=== PATIENT | female | born 1945 | race Caucasian/White ===

== ENCOUNTER 2022-01-19 15:32 | Outpatient (CLI) | payer OTHER, MEDICARE, SELFPAY ==
[2022-01-19 17:38] LABS: Albumin* 4.4 g/dL (3.3-5.0); Chloride* 98 mmol/L (96-114)
[2022-01-19 17:39] LABS: Potassium* 4.3 mmol/L (3.6-5.1); Sodium* 140 mmol/L (135-149)
[2022-01-19 17:41] LABS: Alkaline Phosphatase* 77 U/L (40-150); Aspartate Amino Transferase* 39 U/L (12-35); Bilirubin Total* 0.3 mg/dL (0.1-1.5); Blood Urea Nitrogen* 19 mg/dL (7-30); Carbon Dioxide* 34 mmol/L (20-32); Creatinine* 0.8 mg/dL (0.5-1.5); Estimated Glomerular Filt Rate 77 ml/min; Total Protein* 7.9 g/dL (6.0-8.3)
[2022-01-19 17:42] LABS: Alanine Aminotransferase* 20 U/L (4-35); Calcium* 9.2 mg/dL (8.4-10.6); Glucose* 110 mg/dL (60-115)
== END 2022-01-19 15:33 | disposition home or self-care (01) ==
PROVIDERS: PCP Family Medicine; Visit Provider Family Medicine
DX: R53.83 Other fatigue (principal); R26.89 Other abnormalities of gait and mobility; R42 Dizziness and giddiness
CPT/HCPCS: 80053; 84443

== ENCOUNTER 2022-01-28 13:59 | Outpatient (CLI) | payer OTHER, SELFPAY ==
--- OUTSIDE RECORDS SUMMARY | 2022-01-28 14:03 | XMS_ITS | Clinical Summary ---
:1945 Author Organization [facility] Address [address] [place] [address]. [place] [address] Care Team Providers Name Role Phone Zeynep Keller MD Primary Care Provider [phone] Allergies Active Allergy Reactions Severity Noted Date Comments Contrast Dye 03/05/2013 Morphine Hcl 03/05/2013 Medications Medication Sig Dispensed Refills Start Date End Date Status aspirin (ASPIR-81) 81 MG Take 81 mg by 0 Active EC tablet mouth daily Calcium Take by mouth 0 Active Carbonate-Vitamin D daily (CALCIUM 500 + D PO) coenzyme Q-10 200 MG Take by mouth 0 Active CAPS daily fish oil-omega-3 fatty Take 2 g by 0 Active acids (FISH OIL) 1000 MG mouth daily capsule atorvastatin (LIPITOR) Take 10 mg by 0 Active 10 MG tablet mouth daily lisinopril-hydrochloroth Take 1 tablet by 0 Active iazide mouth daily One (PRINZIDE,ZESTORETIC) one and 1/2 10-12.5 MG per tablet tablet daily Multiple Vitamin Take by mouth 0 Active (MULTIVITAMINS PO) daily Cholecalciferol (VITAMIN Take 1 capsule 0 Active D) 1000 UNITS capsule by mouth daily Active Problems Problem Noted Date 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 Social History Tobacco Use Types Packs/Day Years Used Date Never Smoker Alcohol Use Standard Drinks/Week Comments Yes 0 (1 standard drink = 0.6 oz pure alcoho l) Sex Assigned at Date Recorded Not on file Last Filed Vital Signs Vital Sign Reading Time Taken Comments Blood Pressure 142/72 03/05/2013 10:28 AM CDT Pulse 82 03/05/2013 10:28 AM CDT Temperature 37.2 ??C (98.9 ??F) 03/05/2013 10:28 AM CDT Respiratory Rate - - Oxygen Saturation 98% 03/05/2013 10:28 AM CDT Inhaled Oxygen Concentration - - Weight 93.3 kg (205 lb 9.6 oz) 03/05/2013 10:28 AM CDT Height 166 cm (5' 5.35) 03/05/2013 10:28 AM CDT Body Mass Index 33.84 03/05/2013 10:28 AM CDT Plan of Treatment Health Maintenance Due Date Last Done Comments ADVANCE CARE PLANNING 1945 ANNUAL REVIEW OF HM ORDERS 1947 CT COLONOGRAPHY 1945 DEXA 1945 FIT-DNA (Cologuard) 1945 FIT 1945 FLEX SIG 1945 MAMMO SCREENING 1947 COLONOSCOPY 1957 COLORECTAL CANCER SCREENING 1957 HEPATITIS C SCREENING 1965 LIPID 1992 FALL RISK ASSESSMENT 2012 MEDICARE ANNUAL WELLNESS 2012 VISIT DTAP/TDAP/TD IMMUNIZATION 04/07/2015 04/07/2005 (2 - Td or Tdap) COVID-19 Vaccine (3 - 01/18/2021 08/18/2020, 07/28/2020 Booster for Pfizer series) PHQ-2 (once per calendar 06/05/2021 year) INFLUENZA VACCINE (#1) 2022 03/11/2020, 03/13/2019, 03/16/2018, Additional history exists Pneumococcal Vaccine: 65+ Completed 01/01/2018, 04/10/2015 , Years 11/02/2012 ZOSTER IMMUNIZATION Completed 03/22/2018, 01/01/2018, 11/27/2008 HEPATITIS B IMMUNIZATION Aged Out No long er eligible based on patient 's age to complete this topic IPV IMMUNIZATION Aged Out No longer eligi ble based on patient 's age to complete this topic MENINGITIS IMMUNIZATION Aged Out No longe r eligible based on patient 's age to complete this topic Insurance Payer Benefit Plan / Subscriber ID Effective Phone Address T ype Group Dates MEDICARE MEDICARE [id number] 2012-Pr [phone] ATTN Medic are esent [id number] CLAIMS [address] [place] [address] [facility] [id number] 2020-Pre [phone] BOX HMO MEDICARE SUPP SR sent [id number] 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
--- OUTSIDE RECORDS SUMMARY | 2022-01-28 14:03 | XMS_ITS | Encounter Summary ---
:1945 Author Organization [facility] Address [facility] [place] [address] Care Team Providers Name Role Phone Robert Jones MD Primary Care Provider Unavailable Encounter Details Date Type Department Care Team Description 03/04/2013 Orders Only [facility] Interventional Sarah Howard, Splenic artery Radiology Consult Cl reinaldo RN aneurysm (H) (Primary [address] [facility] [address] [phone] Dx) KINGSLEY RAINES ([facility]) [address] [id number] Social History Tobacco Use Types Packs/Day Years Used Date Never Assessed Sex Assigned at Date Recorded Not on file documented as of this encounter Plan of Treatment Not on filedocumented as of this encounter Visit Diagnoses Diagnosis Splenic artery aneurysm (H) - Primary Aneurysm of splenic artery documented in this encounter Care Teams Home Service Demonstrator Relationship Specialty Start Date End Date Robert Jones MD PCP - General Internal Medicine 02/19/13 09/27/20 documented as of this encounter
--- OUTSIDE RECORDS SUMMARY | 2022-01-28 14:03 | XMS_ITS | Encounter Summary ---
:1945 Author Organization [facility] Address Pending sale to [facility] [place] [address] Care Team Providers Name Role Phone Zeynep Keller MD Primary Care Provider [phone] Reason for Referral Diagnostic Imaging XR (Routine) - Closed Specialty Diagnoses / Procedures Referred By Contact Refer red To Contact Diagnoses Screening for heart disease Self, ReferredMD Procedures Radiologist Consult For Cardiology Referral ID Status Reason Start Date Expiration Date Visits Requ ested Visits Authorized [id number] Closed 09/22/2020 09/22/2021 [address] Scan (Routine) - Denied Specialty Diagnoses / Procedures Referred By Contact Refer red To Contact Cardiology Diagnoses Screening for heart disease Self, MD Herminio Tar[facility]v [facility] Procedures CT Coronary Calcium Scan [address] [facility] [address] [place] [phone] Phone: Referral ID Status Reason Start Date Expiration Date Visits Requ ested Visits Authorized [id number] Denied 09/22/2020 09/22/2021 1 0 Reason for Visit Diagnostic Imaging CT Scan (Routine) - Denied Specialty Diagnoses / Procedures Referred By Contact Refer red To Contact Cardiology Diagnoses Screening for heart disease Ruben, ReferredMD [facility] Procedures CT Coronary Calcium Scan [address] [facility] [address] [place] [phone] Phone: Referral ID Status Reason Start Date Expiration Date Visits Requ ested Visits Authorized [id number] Denied 09/22/2020 09/22/2021 1 0 Encounter Details Date Type Department Care Team Description 09/28/2020 Hospital Encounter [facility] Zeynep Keller Screening for heart [facility] MD Ericka disease Heart [facility] [address] [facility] [address] [facility] [address] [place], [place] [phone] Social History Tobacco Use Types Packs/Day Years Used Date Never Smoker Alcohol Use Standard Drinks/Week Comments Yes 0 (1 standard drink = 0.6 oz pure alcoho l) Sex Assigned at Date Recorded Not on file COVID-19 Exposure Response Date Recorded In the last month, have you been in contact with No / Unsure 09/28/2020 2:39 PM CDT someone who was confirmed or suspected to have Coronavirus / COVID-19? documented as of this encounter Medications at Time of Discharge Medication Sig Dispensed Refills Start Date End Date aspirin (ASPIR-81) 81 MG EC Take 81 mg by mouth 0 tablet daily atorvastatin (LIPITOR) 10 MG Take 10 mg by mouth 0 tablet daily Calcium Carbonate-Vitamin D Take by mouth daily 0 (CALCIUM 500 + D PO) Cholecalciferol (VITAMIN D) Take 1 capsule by 0 1000 UNITS capsule mouth daily coenzyme Q-10 200 MG CAPS Take by mouth daily 0 fish oil-omega-3 fatty acids Take 2 g by mouth 0 (FISH OIL) 1000 MG capsule daily lisinopril-hydrochlorothiazi Take 1 tablet by 0 de (PRINZIDE,ZESTORETIC) mouth daily One one 10-12.5 MG per tablet and 1/2 tablet daily Multiple Vitamin Take by mouth daily 0 (MULTIVITAMINS PO) documented as of this encounter Progress Notes Aracelis Orlando RN - 09/28/2020 11:59 PM CDT Pt contacted to discuss calcium score results and incidental findings. Pt expressed verbal understanding and will contact PCP for further questions and follow-up instructions. Copy of results will be mailed to pt and PCP. Elisa Chowdhury - 09/28/2020 11:59 PM [address]T Results of CT calcium score faxed to PCP (Zeynep Keller) and mailed to patient. documented in this encounter Plan of Treatment Not on filedocumented as of this encounter Procedures Procedure Name Priority Date/Time Associated Comments Diagnosis RADIOLOGIST CONSULT Routine 09/28/2020 3:11 PM Screening for h eart Results for this FOR CARDIOLOGY CDT disease procedure are in the results section. CT CALCIUM SCREENING Routine 09/28/2020 3:11 PM Screening for heart Results for this CDT disease procedure are i n the results section. documented in this encounter Results Radiologist Consult For Cardiology (09/28/2020 3:11 PM CDT) Anatomical Region Laterality Modality Computed Tomography Specimen (Source) Anatomical Location Collection Method / Collectio n Time Received Time / Laterality Volume Narrative 09/28/2020 4:24 PM CDT RADIOLOGIST CONSULT FOR CARDIOLOGY 09/28/2020 3:11 PM HISTORY: 75-year-old woman with screenin g for heart disease. Patient has history of hypercholesterolemia and hypertension. COMPARISON: None TECHNIQUE: Axial and coronal noncontrast CT images. FINDINGS: Please note this report will f ocus on soft tissue findings. Please see separate cardiology report fo r all cardiac and vascular findings. The visible solid organs are unremarkabl e. Scattered calcification in the mediastinum and right hilum, likely granulomatous. No abnormally enlarged soft tissue lymph nodes. Some a re rounded calcifications and only splenic hilum, this could be partia l visualization of a splenic artery aneurysm, though poorly assessed. Measurement in the visible portions is 1.8 x 1.2 cm. Tiny nodule no kinsey in the anterior right lung measuring 3 mm on image 4 series 5. At ost, follow-up CT exam could be performed in 12 months pending patien t's risk factors. No acute osseous abnormality. ROBERT RECIO MD Procedure Note Robert Recio MD - 09/28/2020 RADIOLOGIST CONSULT FOR CARDIOLOGY 2020 3:11 PM HISTORY: 75-year-old woman with screenin g for heart disease. Patient has history of hypercholesterolemia and hypertension. COMPARISON: None TECHNIQUE: Axial and coronal noncontrast CT images. FINDINGS: Please note this report will f ocus on soft tissue findings. Please see separate cardiology report fo r all cardiac and vascular findings. The visible solid organs are unremarkabl e. Scattered calcification in the mediastinum and right hilum, likely granulomatous. No abnormally enlarged soft tissue lymph nodes. Some a re rounded calcifications and only splenic hilum, this could be partia l visualization of a splenic artery aneurysm, though poorly assessed. Measurement in the visible portions is 1.8 x 1.2 cm. Tiny nodule no kinsey in the anterior right lung measuring 3 mm on image 4 series 5. At m ost, follow-up CT exam could be performed in 12 months pending patien t's risk factors. No acute osseous abnormality. ROBERT RECIO MD Referred Self IMG DIAGNOSTIC IMAGING ORDER DIPIKA CT Coronary Calcium Scan (09/28/2020 3:11 PM CDT) Anatomical Region Laterality Modality Chest, [facility] CT CTA Computed Tomography Specimen (Source) Anatomical Location Collection Method / Collectio n Time Received Time / Laterality Volume Narrative 09/28/2020 3:41 PM CDT Procedure: CT CALCIUM SCREENING Examination Date: 09/28/2020 3:11 PM Clinical Information: Screening for hear t disease Ordering Provider: Self PROCEDURE: High-resolution, ECG synchron ized multi-slice computed tomography was performed without inciden t. Coronary calcification was analyzed using [employer] calcium scoring software. Scan protocol was optimized to minimize radiation exposure . The total radiation exposure was calculated to be 288 DLP and 0.46 mS v. FINDINGS: Overall quality of the study: Mild motio n artifact. CORONARY ARTERY CALCIUM SCORES: Left main coronary artery: 0 Left anterior descending coronary artery : 55.6 Circumflex coronary artery: 205 Right coronary artery: 27.1 TOTAL CALCIUM SCORE: 288 Impressions Moderate coronary artery calcification The total Agatston calcium score is 288 placing the patient in the 78th percentile when compared to age and gender matched control group. Mild calcification of descending thoraci c aorta Please review Radiology report for incid ental noncardiac findings that will follow separately CALCIUM SCORE OF 100-399: If the patient has more than one cardiac risk factor (male age >45, female age >5 5,hypertension, smoking, high cholesterol, low HDL, family history of heart disease) then the risk of coronary heart disease, or myoc ardial infarction is 1.3% per year (Penny Ulloa et al. [facility], 2007; 4 9:378-402). The more calcium is detected, the higher is the likelihoo d for an obstructive coronary disease. However, there is no unique rel ationship between the amount of detected calcium and the extent of or localization of coronary artery disease. If there are any cardiac symptoms (for example chest pain/ pressure or shortness of breath) t hen immediate medical attention is necessary. GENERAL RECOMMENDATIONS: Adoption and ma intenance of a healthy lifestyle is recommended for all people. This should include regular, appropriate exercise and observance of a proper diet, to ensure balanced nutrition and weight control. T obacco use should be avoided. Cholesterol has been linked to coronary atherosclerosis, and we strongly encourage adhering to the recom mendations of the National Cholesterol Education Panel (NCEP). For primary prevention, these include a target goal for total choleste rol of less than 200 mg/dl, HDL cholesterol of greater than 40 mg/dl , triglycerides of less than 150 mg/dl, and LDL cholesterol of less t piper 100 mg/dl. However note that these are general recommendations o nly, and as with all such matters, the personal physician should b e consulted regarding recommendations and treatments appropria te for the individual. JEFFY LUNDY MD Procedure Note Jeffy Lundy MD - 09/28/2020For matting of this note might be different from the original. Procedure: CT CALCIUM SCREENING Examination Date: 09/28/2020 3:11 PM Clinical Information: Screening for hear t disease Ordering Provider: Self PROCEDURE: High-resolution, ECG synchron ized multi-slice computed tomography was performed without inciden t. Coronary calcification was analyzed using [employer] calcium scoring software. Scan protocol was optimized to minimize radiation exposure . The total radiation exposure was calculated to be 288 DLP and 0.46 mS v. FINDINGS: Overall quality of the study: Mild motio n artifact. CORONARY ARTERY CALCIUM SCORES: Left main coronary artery: 0 Left anterior descending coronary artery : 55.6 Circumflex coronary artery: 205 Right coronary artery: 27.1 TOTAL CALCIUM SCORE: 288 Impressions Moderate coronary artery calcification The total Agatston calcium score is 288 placing the patient in the 78th percentile when compared to age and gender matched control group. Mild calcification of descending thoraci c aorta Please review Radiology report for incid ental noncardiac findings that will follow separately CALCIUM SCORE OF 100-399: If the patient has more than one cardiac risk factor (male age >45, female age >5 5,hypertension, smoking, high cholesterol, low HDL, family history of heart disease) then the risk of coronary heart disease, or myoc ardial infarction is 1.3% per year (Penny Ulloa et al. [facility], 2007; 4 9:378-402). The more calcium is detected, the higher is the likelihoo d for an obstructive coronary disease. However, there is no unique rel ationship between the amount of detected calcium and the extent of or localization of coronary artery disease. If there are any cardiac symptoms (for example chest pain/ pressure or shortness of breath) t hen immediate medical attention is necessary. GENERAL RECOMMENDATIONS: Adoption and ma intenance of a healthy lifestyle is recommended for all people. This should include regular, appropriate exercise and observance of a proper diet, to ensure balanced nutrition and weight control. T obacco use should be avoided. Cholesterol has been linked to coronary atherosclerosis, and we strongly encourage adhering to the recom mendations of the National Cholesterol Education Panel (NCEP). For primary prevention, these include a target goal for total choleste rol of less than 200 mg/dl, HDL cholesterol of greater than 40 mg/dl , triglycerides of less than 150 mg/dl, and LDL cholesterol of less t piper 100 mg/dl. However note that these are general recommendations o nly, and as with all such matters, the personal physician should b e consulted regarding recommendations and treatments appropria te for the individual. JEFFY LUNDY MD Referred Self IMG CT ORDERABLES documented in this encounter Visit Diagnoses Diagnosis Screening for heart disease Screening for other and unspecified card iovascular conditions documented in this encounter Care Teams Concrete Tester Relationship Specialty Start Date End Date Zeynep Keller MD PCP - General Family Medicine 09/28/[address] [address] documented as of this encounter
--- OUTSIDE RECORDS SUMMARY | 2022-01-28 14:03 | XMS_ITS | Encounter Summary ---
:1945 Author Organization [facility] Address [address] [place] [id number] Care Team Providers Name Role Phone Unavailable Primary Care Provider Unavailable Reason for Referral Outpatient (Routine) - Pending Review Specialty Diagnoses / Procedures Referred By Contact Refer red To Contact Diagnoses Goiter Multinodular Nontoxic Wild Coelho M.D. Procedures FNA Neck [address] [place], [place] [phone] Referral ID Status Reason Start Date Expiration Date Visits V isits Requested Authorized [id number] Pending 11/10/2021 11/10/2022 1 1 Review Reason for Visit Reason Comments Thyroid Nodule END Thyroid USG Outpatient (Routine) - Closed Specialty Diagnoses / Procedures Referred By Contact Refer red To Contact Diagnoses Nodule Thyroid Angelita Gallego M.D. [facility] Procedures END Thyroid USG [address] [place] [address] Referral ID Status Reason Start Date Expiration Date Visits Requ ested Visits Authorized [id number] Closed 11/10/2021 11/10/2022 1 1 Encounter Details Date Type Department Care Team Description 11/10/2021 Procedure visit Division of Angelita Gallego M .D. [address] [place] [phone] Goiter Multinodular Nontoxic (Primary Dx ); Endocrinology in Wild Coelho M.D. [address] [place] [phone] Nodule Thyroid [place], [place] [address] [place] [phone] Social History Tobacco Use Types Packs/Day Years Used Date Smoking Tobacco: Never Smokeless Tobacco: Never Comments: Grew up with father who was ch ain smoker Alcohol Use Standard Drinks/Week Comments Never 0 (1 standard drink = 0.6 oz pure alcoho l) Alcohol Habits Answer Date Recorded How often do you have a drink containing alcohol? Never 09/21/2021 How many drinks containing alcohol do you have on a typical Not asked day when you are drinking? How often do you have six or more drinks on one occasion? No t asked Comment: Not asked Social Isolation Answer Date Recorded In a typical week, how many times do you More than three chante es a week 09/21/2021 talk on the phone with family, friends, or neighbors? How often do you get together with friends Once a week 09/21/2021 or relatives? How often do you attend latter day or More than 4 times per year 09/21/2021 faith services? Do you belong to any clubs or Not asked organizations such as latter day groups, unions, fraternal or athletic groups, or school groups? How often do you attend meetings of the More than 4 times pe r year 09/21/2021 clubs or organizations you belong to? Are you now , , , 09/21/2021 , never or living with a partner? Physical Activity Answer Date Recorded On average, how many days per week do you engage in moderate to 7 days 09/21/2021 strenuous exercise (like walking fast, running, jogging, dancing, swimming, biking, or other activities that cause a light or heavy sweat)? On average, how many minutes do you engage in exercise at th is 20 min 09/21/2021 level? Financial Resource Strain Answer Date Recorded How hard is it for you to pay for the very basics like Not h calos at all 09/21/2021 food, housing, medical care, and heating? Intimate Partner Violence Answer Date Recorded Within the last year, have you been afraid of your partner o r No 09/21/2021 ex-partner? Within the last year, have you been humiliated or emotionall y No 09/21/2021 abused in other ways by your partner or ex-partner? Within the last year, have you been kicked, hit, slapped, or No 09/21/2021 otherwise physically hurt by your partner or ex-partner? Within the last year, have you been raped or forced to have any No 09/21/2021 kind of sexual activity by your partner or ex-partner? Food Insecurity Answer Date Recorded Within the past 12 months, you worried that your food would Never true 09/21/2021 run out before you got money to buy more. Within the past 12 months, the food you bought just didn't N ever true 09/21/2021 last and you didn't have money to get more. Transportation Needs Answer Date Recorded In the past 12 months, has lack of transportation kept you f rom No 09/21/2021 medical appointments or from getting medications? In the past 12 months, has lack of transportation kept you f rom No 09/21/2021 meetings, work, or getting things needed for daily living? Housing Stability Answer Date Recorded In the last 12 months, was there a time when you were not ab le No 09/21/2021 to pay the mortgage or rent on time? In the last 12 months, how many places have you lived? 1 09/21/2021 In the last 12 months, was there a time when you did not hav e a No 09/21/[address] to sleep or slept in a residential (including now)? Education Answer Date Recorded What is the highest level of school Master's degree (e.g., M A, MS, 09/21/2021 you have completed or the highest Cecil, MEd, WHEELCHAIR VAN OPERATOR FIRST RESPONDER, ARMANDO) degree you have received? Sex Assigned at Date Recorded Female 09/21/2021 10:37 AM CDT documented as of this encounter Progress Notes Sacha Mercado R.N. - 11/10/2021 3:00 PM CDT REASON FOR VISIT Adalgisa Layton presents for a Fine Needle Aspiration of the Right thyroid nodule. HISTORY OF PRESENT ILLNESS Anticoagulation therapy: No. Recent INR: NA. Previous reaction to topical anesthetic: No History of easy bruising or bleeding: No ASSESSMENT Pain Score Pre-procedure: 0/10 Pain Score Post-procedure: 1/10 Please see Education Activity within medical record for completed patient education. documented in this encounter Procedure Notes Wild Coelho M.D. - 11/10/2021 3:00 PM CDTAssociated Order(s): FNA Neck Post-Procedure Diagnose(s): Goiter Multinodular Nontoxic FNA Neck Date/Time: 11/10/2021 3:00 PM Performed by: Wild Coelho M.D. Authorized by: Wild Coelho M.D. Care team members present 1. Tracy Pfeiffer 3. Sacha Mercado R.N. PROCEDURE DETAILS Number of FNA sites: 1 Ultrasound image guidance used to localize target, identify at risk structures, and dynamically usedto direct therapy to the target. Image(s) acquired and saved. FNA Site 1 Fine needle aspiration site: thyroid 27 gauge needle inserted this many times: 6 Sample obtained for molecular testing: no Sample obtained for thyroglobulin washout: no Cyst fluid: none CONSENT Consent obtained: written UNIVERSAL PROTOCOL All relevant documentation and testing were reviewed and available. All required blood products, implants, devices and or special equipment were made available as applicable. Pre-procedure verificationwas conducted and the correct site was marked if required. A fire risk assessment was done as applicable. The procedural time-out to verify correct patient, correct side/site, and procedure was conducted prior to performing the procedure and confirmed in a procedural pause. PRE-PROCEDURE DETAILS Indications: thyroid nodule Appropriate hand hygiene, gown, cap, mask, protective eyewear, sterile gloves, skin preparation, sterile drape, and strict aseptic technique were utilized as applicable for the procedure.: yes Site preparation: chlorhexidine SEDATION / ANESTHESIA Anesthesia method: topical application Topical application type: lidocaine/prilocaine (EMLA) POST-PROCEDURE DETAILS Procedure completed successfully: yes Complications: no apparent complications Comments The procedure was performed under ultrasound guidance and images identifying the location of the needle placement where obtained and stored. We started with the dominant inferior right lesion with an area of cystic degeneration centrally. It was soft in consistency and with good return. We then turnedour attention to the more posterior and lateral right thyroid nodule and found it of similar consiste ncy. We used suction on one pass. The return was good as well. Follow-up images were unremarkable. Pain 0/0. She was discharged in stable condition. ATTESTATION STATEMENT The teaching physician rule is not applicable. documented in this encounter Miscellaneous Notes Result Encounter Note - Angelita Gallego M.D. - 11/11/2021 12:03 PM CDT Called her mobile phone at 11:59am to let her both R thyroid nodules are Benign. TSH is normal at 2.9. She can have recheck in 3-[address] Gallego documented in this encounter Plan of Treatment Not on filedocumented as of this encounter Procedures Procedure Name Priority Date/Time Associated Diagnosis Comme nts [place] FNA BX W/US GDN Routine 11/10/2021 3:00 PM Goiter Multinodu lar Results for this 1ST LES CDT Nontoxic procedure are i n the results section. CYTOLOGY FINE Routine 11/10/2021 2:33 PM Nodule Thyroid Result s for this NEEDLE ASPIRATION CDT procedure are in (INCLUDES CORE the results BIOPSIES section. documented in this encounter Results [place] FNA BX W/US GDN 1ST LES (11/10/2021 3:00 PM CDT) Narrative [facility] - 11/10/2021 3:00 PM CDT Wild Coelho M.D. ? 11/11/2021 ??7:41 AM FNA Neck Date/Time: 11/10/2021 3:00 PM Performed by: Wild Coelho M.D. Authorized by: Wild Coelho M.D. Care team members present 1. Tracy Pfeiffer 3. Sacha Mercado R.N. PROCEDURE DETAILS Number of FNA sites: 1 Ultrasound image guidance used to locali ze target, identify at risk structures, and dynamically used to dire ct therapy to the target. Image(s) acquired and saved. FNA Site 1 Fine needle aspiration site: thyroid 27 gauge needle inserted this many times : 6 Sample obtained for molecular testing: n o ?? Sample obtained for thyroglobulin washou t: no ?? Cyst fluid: none CONSENT Consent obtained: written UNIVERSAL PROTOCOL All relevant documentation and testing w ere reviewed and available. All required blood products, implants, devic es and or special equipment were made available as applicable. Pre-proced ure verification was conducted and the correct site was marked if required. A fire risk assessment was done as applicable. The procedural time-out t o verify correct patient, correct side/site, and procedure was conducted p rior to performing the procedure and confirmed in a procedural pause. PRE-PROCEDURE DETAILS Indications: thyroid nodule Appropriate hand hygiene, gown, cap, mas k, protective eyewear, sterile gloves, skin preparation, sterile drape, and strict aseptic technique were utilized as applicable for the procedure .: yes ?? Site preparation: chlorhexidine SEDATION / ANESTHESIA Anesthesia method: topical application Topical application type: lidocaine/pril ocaine (EMLA) POST-PROCEDURE DETAILS ?? Procedure completed successfully: yes ?? Complications: no apparent complications Comments The procedure was performed under ultras ound guidance and images identifying the location of the needle p lacement where obtained and stored. ??We started with the dominant i nferior right lesion with an area of cystic degeneration centrally. ??It w as soft in consistency and with good return. ??We then turned our attent ion to the more posterior and lateral right thyroid nodule and found i t of similar consistency. ??We used suction on one pass. ??The return was go od as well. ??Follow-up images were unremarkable. ??Pain 0/0. ??She was disc harged in stable condition. ATTESTATION STATEMENT The teaching physician rule is not appli cable. Wild Coelho M.D. PROCEDURE/MINOR SURGICAL ORD ERABLES Performing Organization Address City/State/ZIP Code Phon e Number [facility] NA Cytology Fine Needle Aspiration (including core biopsies) (11/10/2021 2:33 PM CDT) Component Value Ref Test Analysis Performed At [facility] Method Time Signature 11/11/2021 DTL 11:33 AM CDT Report Andrés Tobar.B.S. 0 02/2022 DTL electronically 11:33 AM signed by CDT I verify that I have examined all relevant slides/materials for the specimen(s) and rendered or confirmed the diagnosis. Gross Description Received 16 11/11/2021 DTL alcohol-fixed 11:33 AM smears. CDT Source A. Thyroid, 11/11/2021 DTL Right, fine 11:33 AM needle CDT aspiration Interpretation A. Thyroid, Right, fine needle aspiration (smears): 11/11/2021 DTL Negative 11:33 AM for malignancy. Cytologic features consistent with benign CDT thyroid nodule. The smears have minimal cellularity. Specimen (Source) Anatomical Collection Method Collection Time Re ceived Time Location / / Volume Laterality Aspirate 11/10/2021 2:33 PM (Thyroid, Right) CDT Narrative This result has an attachment that is no t available. Angelita Gallego M.D. LAB SURG PATH ORDERABLES Performing Organization Address City/State/ZIP Code Phon e Number [facility] - [address] [place], [place] [address] [facility] [place] [address] Laboratories-[facility] [address] documented in this encounter Visit Diagnoses Diagnosis Goiter Multinodular Nontoxic - Primary Nodule Thyroid documented in this encounter Administered Medications Active Administered Medications - up to 3 most recent administrations Medication Order MAR Action Action Date Dose Rate Site lidocaine 4 % cream 1 Given 11/10/2021 2:07 PM CDT 1 application application (LMX) 1 application (5 g), topical, As needed, Apply for local anesthesia, Starting on Mon11/10/21 at 0924 documented in this encounter
--- OUTSIDE RECORDS SUMMARY | 2022-01-28 14:03 | XMS_ITS | Encounter Summary ---
:1945 Author Organization [place] Address [facility] [place] [address] Care Team Providers Name Role Phone Robert Jones MD Primary Care Provider Unavailable Encounter Details Date Type Department Care Team Description 03/20/2013 Telephone [facility] Cancer [facility] Sarah Howard, RN [facility] lding 1st Floor, [address] [phone] Social History Tobacco Use Types Packs/Day Years Used Date Never Smoker Alcohol Use Standard Drinks/Week Comments Yes 0 (1 standard drink = 0.6 oz pure alcoho l) Sex Assigned at Date Recorded Not on file documented as of this encounter Miscellaneous Notes Telephone Encounter - Sarah Winslow RN - 03/20/2013 10:56 AM CDT Calld and informed pt that Dr Torres did review the images that she had done at 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 She verbalized understanding and will call with any further questions documented in this encounter Plan of Treatment Not on filedocumented as of this encounter Visit Diagnoses Not on filedocumented in this encounter Care Teams Meat Press Operator Relationship Specialty Start Date End Date Robert Jones MD PCP - General Internal Medicine 02/19/13 09/27/20 documented as of this encounter
--- OUTSIDE RECORDS SUMMARY | 2022-01-28 14:03 | XMS_ITS | Encounter Summary ---
:1945 Author Organization [place] Address [facility] [place] [address] Care Team Providers Name Role Phone Robert Jones MD Primary Care Provider Unavailable Encounter Details Date Type Department Care Team Description 03/04/2013 Telephone [facility] Interventional Radiology Sarah Hunter, RN Consult Clinic [address] [phone] Social History Tobacco Use Types Packs/Day Years Used Date Never Assessed Sex Assigned at Date Recorded Not on file documented as of this encounter Miscellaneous Notes Telephone Encounter - Sarah Winslow RN - 03/04/2013 2:46 PM CDT Called pt and informed her that I do not have any med recs however just received her images today. Iinfrmed her that the all images are in 2010. Pt tells me that she then had some imaged done at [place],which are US abd. She's due for another CT at [place] in Apr. She has lots of questions for Dr. Torres. She is curious if she should seek out IR or resection. Along with seeking which therapy is best for her as internet research has indicated that this is bestwhen treated. She informs me that she was told it has hasn't changed from 1.2cm x 1.7cm in the past 2 years. When asked about symptoms, she tells me that recently, pulsing/throbbing sensation on her left side when lying down and also after eating. She was told that this aneurysm is close to the stomach. I informed her that I will inform Dr. Torres. Also, she will get the medical records to me and ifnot will handcarry them. documented in this encounter Plan of Treatment Not on filedocumented as of this encounter Visit Diagnoses Not on filedocumented in this encounter Care Teams Supervisor Meter Repair Shop Relationship Specialty Start Date End Date Robert Jones MD PCP - General Internal Medicine 02/19/13 09/27/20 documented as of this encounter
--- OUTSIDE RECORDS SUMMARY | 2022-01-28 14:03 | XMS_ITS | Encounter Summary ---
:1945 Author Organization [place] Address [address] [place] [address]. [place] [address] Care Team Providers Name Role Phone Robert Jones MD Primary Care Provider Unavailable Reason for Visit Reason Onset Date Comments Previsit 03/01/2013 called patient she c onfirmed her appt Encounter Details Date Type Department Care Team Description 03/01/2013 PRE VISIT Surgery Interventional Marisela Torres Previsit (called Radiology MD patient she confirmed [place] [address] [facility]t ) Building [facility] [address], Clinic [address] [place] [id number] [facility] [address] [place], [place] [phone] (Work) [phone] Social History Tobacco Use Types Packs/Day Years Used Date Never Assessed Sex Assigned at Date Recorded Not on file documented as of this encounter Miscellaneous Notes Telephone Encounter - Rhys Angenedra Watson MA - 03/01/2013 1:42 PM CDT Date of Call: March 01, 2013 Phone Numbers: Work Phone Not on file. Reached Patient: Yes Reason for Visit: Previsit Problem List: There are no active problems to display for this patient. Patient Care Team: Robert Jones as PCP - General (Internal Medicine) Referred by: self PCP: Robert Jones History Substance Use Topics ??? Smoking status: Not on file ??? Smokeless tobacco: Not on file ??? Alcohol Use: Not on file No current outpatient prescriptions on file. Allergies not on file Preferred Pharmacies: No Pharmacies Listed Patient instructions: Bring outside medical records, images, and/or studies Arrive 15 minutes early If health history form was received in the mail please bring to the appointment, or arrive early to complete health history form if patient did not receive. documented in this encounter Plan of Treatment Not on filedocumented as of this encounter Visit Diagnoses Not on filedocumented in this encounter Care Teams Head Refrigeration Engineer Relationship Specialty Start Date End Date Robert Jones MD PCP - General Internal Medicine 02/19/13 09/27/20 documented as of this encounter
--- OUTSIDE RECORDS SUMMARY | 2022-01-28 14:03 | XMS_ITS | Encounter Summary ---
:1945 Author Organization [place] Address [facility]0 [facility] [place] [address] Care Team Providers Name Role Phone Robert Jones MD Primary Care Provider Unavailable Encounter Details Date Type Department Care Team Description 03/06/2013 Telephone [facility] Interventional Radiology Sarah Hunter, RN Consult Clinic [address] [place], [place] [phone] Social History Tobacco Use Types Packs/Day Years Used Date Never Smoker Alcohol Use Standard Drinks/Week Comments Yes 0 (1 standard drink = 0.6 oz pure alcoho l) Sex Assigned at Date Recorded Not on file documented as of this encounter Miscellaneous Notes Telephone Encounter - Sarah Winslow, ANGELITA - 03/06/2013 9:52 AM CDT Called pt and informed her that I have faxed the CT order to [facility]. I've asked her to call there to get her imaging scheduled. She informed us that she has a tentative CT angio with [facility] that is coming up in Apr and is wondering if she should go to that. I informed her that this is up to her. However our recommendations are tohave a CT w/o contrast as it appears that this aneurysm has clacified and with her allergy to contrast, then this would be in our opinion the most appropriate way to image this. But if she still wants to see [facility], then that's o.k as we always encourage 2nd opinions. She informs me that Dr Torres has certainly taken the time to explain to her and has given her detail in regards to her situation. She is very pleased with him and would [facility] She will call to make this appt and then just give me a courtesy call to let me know when to f/u with the imaging. She will call with any other questions. documented in this encounter Plan of Treatment Not on filedocumented as of this encounter Visit Diagnoses Not on filedocumented in this encounter Care Teams Nitroglycerin Neutralizer Relationship Specialty Start Date End Date Robert Jones MD PCP - General Internal Medicine 02/19/13 09/27/20 documented as of this encounter
--- OUTSIDE RECORDS SUMMARY | 2022-01-28 14:03 | XMS_ITS | Encounter Summary ---
:1945 Author Organization [place] Address [facility] [place] [address] Care Team Providers Name Role Phone Robert Jnoes MD Primary Care Provider Unavailable Reason for Referral - Closed Specialty Diagnoses / Procedures Referred By Contact Refer red To Contact Diagnoses Splenic artery aneurysm (H) Marisela Torres MD Procedures CT Abdomen w/o contrast [address] [address] Referral ID Status Reason Start Date Expiration Date Visits Requ ested Visits Authorized [id number] Closed 03/05/2013 09/01/2013 1 1 Reason for Visit Reason Comments Consult Consultation Spenic Artery A neurysm Encounter Details Date Type Department Care Team Description 03/05/2013 Office Visit Surgery Interventional Marisela Torres, Splenic artery Radiology aneurysm (H) [place] [address] (Carmelina johnson Dx) Building [facility] [address] Floor, Clinic [address] [place] [address] [facility] [place] [address] [place], [place] [phone] (Work) [phone] Social History Tobacco Use Types Packs/Day Years Used Date Never Smoker Alcohol Use Standard Drinks/Week Comments Yes 0 (1 standard drink = 0.6 oz pure alcoho l) Sex Assigned at Date Recorded Not on file documented as of this encounter Last Filed Vital Signs Vital Sign Reading [...] Mass Index 33.84 03/05/2013 10:28 AM CDT documented in this encounter Progress Notes Kojo Hartman - 03/05/2013 10:13 AM CDT Primary Care Physician: Robert Gray in [facility]. Reason for Consultation: Opinion on pt's splenic artery aneurysm. Brief History: Ms. Layton is a 67 y/o female who is being seen in the interventional radiology clinic at the [facility] for evaluation of a splenic artery aneurysm. Per her report, she was aware of this finding dating back to 2009. She has had prior imaging at [facility] and [place], [place]. 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 She has been seen at 2 other locations ([facility] in [facility]) and [facility], and has essentially been told that no follow up is needed. Patient states that she feels a throbbing every day, and it is waking her at night. Her family history is negative for aneurysm rupture. PMH: HTN, hyperlipidemia, osteoarthritis. PSH: meniscal surgery 2008; laparascopic hysterosalpingo-oophrectomy 1993; laparoscopic cholecystectomy 1995. Allergies: Morphine (dizziness) IV contrast (runny nose, congestion) Family History: Father 90, stroke. Mother 80, vascular dementia. Brother has DM, HTN. Social History: retired in 2005. Does not smoke. ROS: General: No acute distress. HEENT: neg CV: denies chest pain Resp: denies cough. Has mild SOB GI: denies abd pain : denies pain MSK: denies muscle ache Neuroendocrine: denies heat/cold intolerance Physical Exam: vital signs normal Gen: alert and oriented, no acute distress Lungs: CTA CV: RRR HEENT: normal Abd: Soft, nontender. Impression: Patient has a 1.7 cm sacular annuerysm distal splenic artery, last imaged 03/31/11. She has a reportof a CT April, of the aneurysm from [facility] but I do not have those images. The aneurysmhas been stable per prior reports dating back to 2009. The risk of rupture is exceedingly low. Techni soumya, the aneurysm could be treated with coils, however the risk of such a procedure (infarct of the spleen, non-target embolization, hemmorrhage) might out-way the benefit. The patient was very tearful at the end of the discussion, and the aneurysm clearly affects her daily life giving her anxiety. A follow-up CT of the aneurysm, without contrast because of the patients possible IV contrast allergy, could be done. We will be happy to follow her with yearly non-contrast CT's of the abdomen, and ifit grows (greater than 2.0 cm size) a discussion of coiling the artery could be had. The patient seemed relieved that we would see her again and do a follow-up study. I have seen the patient with Dr Hartman and agree with the note above. documented in this encounter Nursing Notes 03/05/2013 10:40 AM CDT >> KEON IBRAHIM Mar 05, 2013 10:35 AM Patient presents with: Consult - Consultation Spenic Artery Aneurysm >> KEON IBRAHIM Mar 05, 2013 10:35 AM Patient presents with: Consult - Consultation Spenic Artery Aneurysm 03/05/13 1028 BP: 142/72 Pulse: 82 Temp: 98.9 ??F (37.2 ??C) TempSrc: Oral Height: 1.66 m (5' 5.35) Weight: 93.26 kg (205 lb 9.6 oz) SpO2: 98% Body mass index is 33.84 kg/(m^2). WOUND EVALUATION: documented in this encounter Plan of Treatment Not on filedocumented as of this encounter Visit Diagnoses Diagnosis Splenic artery aneurysm (H) - Primary Aneurysm of splenic artery documented in this encounter Care Teams Spinning Bath Person Relationship Specialty Start Date End Date Robert Jones MD PCP - General Internal Medicine 02/19/13 09/27/20 documented as of this encounter
--- OUTSIDE RECORDS SUMMARY | 2022-01-28 14:03 | XMS_ITS | Clinical Summary ---
:1945 Author Organization [facility] Address [address] [place] [address] Care Team Providers Name Role Phone Unavailable Primary Care Provider Unavailable Source Comments Patient records contain information from all sites at [facility]. For routine questions regarding patient records, call [phone] during business hours, M-F 8:00 AM - 5:00 PM Central Time. Record requests for emergency care only can be directed to [phone] at any time.[facility] Allergies Active Allergy Reactions Severity Noted Date Comments Doxycycline Other (see comments) 02/17/2014 numbnes s Iodinated Contrast Shortness of breath 03/16/2012 Sn eezing and Media congestion in 2 00. Pt. States no h istory of allergy to t opical betadine. Morphine Other (see comments) 06/27/2003 Nickel Itching, Rash 05/16/2007 Medications Medication Sig Dispensed Refills Start Date End Date Status aspirin/calcium Take 1 tablet by 0 04/20/2012 Active carb/magnesium (ASPIRIN, mouth daily. BUFFERED ORAL) calcium Take by mouth. 0 Activ e carbonate/vitamin D3 (CALCIUM+D ORAL) wheat dextrin (BENEFIBER Take by mouth. 0 01/26/2009 Active CLEAR SF, DEXTRIN, ORAL) miscellaneous medical CPAP machine for 0 06/10/2020 Active supply misc home use at pressure 10.8cm/H2O, nasal mask x1/3month with nasal cushion x2/mo lisinopril-hydroCHLOROth Take 1 tablet by 0 12/01/19 21 Active iazide mouth daily. (PRINZIDE,ZESTORETIC) 20-25 mg per tablet multivitamin tablet Take by mouth. 0 04/11/2006 Active omega 2-rsh-fkj-fish oil Take 1 capsule 0 04/20/2012 Active 900 mg-360 mg- 455 by mouth daily. mg-1,000 mg capsule co-enzyme Q-10 (CO Q-10) Take 1 capsule 0 04/20/2012 Active 100 mg capsule by mouth daily. atorvastatin (LIPITOR) Take 10 mg by 0 12/28/2020 Active 10 mg tablet mouth at bedtime. amLODIPine (NORVASC) 5 Take 1 tablet by 0 07/10/2017 Active mg tablet mouth daily. ELDERBERRY FRUIT AND Takes liquid 0 11/02/2012 Active FLOWER ORAL form, 5 ml at bedtime as needed for expectorant. acetaminophen (TYLENOL) as needed for 0 Active 32 mg/mL suspension pain. UNABLE TO FIND Med Name: [place] 0 Active eye drops aspirin [address] tablet Take 81 mg by 0 11/02/2012 Active mouth. cholecalciferol (VITAMIN Take 1 capsule 0 Active D3) 25 mcg (1,000 Unit) by mouth. capsule docosahexaenoic acid-epa Take 2 g by 0 Active 120-180 mg capsule mouth as needed. ibuprofen (ADVIL,MOTRIN) Take 200 mg by 0 09/15/2016 Active 100 mg/5 mL suspension mouth as needed. nystatin (NYSTOP) Apply topically. 0 11/03/2015 Active 100,000 unit/gram powder vit Take 1 capsule 0 07/10/2017 Acti ve C,L-Xd-qcfgy-lutein-zeax by mouth 2 (two) an (AREDS 2) 250-90-40-1 times a day. mg per capsule Hospital, Clinic, or Other Ordered Dose Route Frequency Start Date End Date Status Facility Administered Medication lidocaine 4 % cream 1 1 application top As needed 11/10/2021 Active application (LMX) acetaminophen tablet 1,000 1000 mg oral Once 11/10/2021 Active mg (TYLENOL)Indications: Nodule Thyroid Active Problems Problem Noted Date Hypertension Essential Primary 02/02/2021 Hyperlipidemia On Treatment 02/02/2021 Aneurysm Splenic Artery 01/22/2018 Encounters Date Type Specialty Care Team Description 11/10/2021 Procedure visit Endocrinology Angelita Gallego inodular Nontoxic (Primary Dx); Zari Watson Nodule Thyroid Wild Coelho M.D. 11/10/2021 Hospital Encounter Laboratory Medicine Julián, Angelita bray Thyroid Zari Watson 11/10/2021 Comprehensive Visit Endocrinology Julián, Angelita Celaya Thyroid Zari Watson 11/09/2021 Clinical Admitting/Central Pre-visit Intake Communication Scheduling from Last 3 Months Family History Medical History Relation Name Comments Anesthesia problems Brother Colton [place] in tubation [place] Arthritis Brother Colton [facility] Colon polyps Brother Colton [facility] Diabetes Brother Colton [facility] Hyperlipidemia Brother Colton [facility] Hypertension Brother Colton [facility] Kidney disease Brother Colton [facility] Parkinson disease Brother Colton [facility] Skin cancer Brother Colton [facility] Sleep apnea Brother Colton [facility] Alcohol abuse Father Bipin SSiobhan Layton Stopped drink ing around age 60 Anxiety disorder Father Manuelting S. Kinjal Arthritis Father Manuelting S. Kinjal Hypertension Father Bipin S. Kinjal Parkinson disease Father Manuelting S. Kinjal Stroke Father Manuelting S. Kinjal Breast cancer Father's Sister Afshan Alcohol abuse Maternal Grandfather Claus Osoriocolm He bef ore I was Cristine Sr. born, but he was a bootlegger Coronary artery disease Maternal Grandfather Claus [place] d of heart attack Cristine Sr. in 1940's Arthritis Mother Sarah Layton Colon polyps Mother Sarah Colunga Colon section [place] removed due to cancerous polyp Coronary artery disease Mother Sarah Colunga of heart attack [place] in 2006 Hypertension Mother Sarah Colunga [place] Migraines Mother Sarah Colunga [place] Osteoporosis Mother Sarah Colunga [place] Transient ischemic attack Mother Sarah Colunga [place] Breast cancer Mother's Sister Lizbeth Lawson Alcohol abuse Paternal Grandfather Colton Layton Sr. befor e I was born Colon cancer Paternal Grandfather Colton Layton Sr. Bleeding Disorder Paternal Grandmother Elin Hanley from blood loss [place] in childbirth approx. 1920 Relation Name Status Comments Brother Colton Layton Father Bipin S. Kinjal Father's Sister Afshan Maternal Grandfather Claus Kimmanisha Colunga Sr. Maternal Grandmother Sarah Colunga Mother Sarah Colunga [place] Mother's Sister Lizbeth Renny Paternal Grandfather Colton Layton Sr. Paternal Grandmother Elin [facility] Social History Tobacco Use Types Packs/Day Years [...] or relatives? How often do you attend protestant or More than 4 times per year 09/21/2021 rastafarian services? Do you belong to any clubs or Not asked organizations such as protestant groups, unions, fraternal or athletic groups, or [...] place to sleep or slept in a snf (including now)? Education Answer Date Recorded What is the highest level of school Master's degree (e.g., M A, MS, 09/21/2021 you have completed or the highest Cecil, MEd, CASH MANAGEMENT SPECIALIST, ARMANDO) degree you have received? Sex Assigned at Date Recorded Female 09/21/2021 10:37 AM CDT Last Filed Vital Signs Vital Sign Reading Time Taken Comments Blood Pressure 157/86 11/10/2021 12:28 PM CDT Pulse 71 11/10/2021 12:28 PM CDT Temperature - - Respiratory Rate - - Oxygen Saturation - - Inhaled Oxygen Concentration - - Weight 88 kg (194 lb 0.1 oz) 11/10/2021 9:03 AM CDT Height 161.5 cm (5' 3.58) 11/10/2021 9:03 AM CDT Body Mass Index 33.74 11/10/2021 9:03 AM CDT Plan of Treatment Health Maintenance Due Date Last Done Comments Bone Density Scan (Osteoporosis 1945 Screen) CT Colonography 1945 Cologuard 1945 Colonoscopy 1945 Colorectal Cancer Surveillance 1945 Hepatitis C Screening 1945 Lipid (Cholesterol) Screening 1945 Mammogram 1945 Depression Screening (Annual 06/05/2021 PHQ-2) Fall Risk Screen (Annual) 06/05/2021 Creatinine Level 02/02/2022 02/02/2021 Potassium Level 02/02/2022 02/02/2021 Sodium Level 02/02/2022 02/02/2021 Office Visit for Blood Pressure 02/10/2022 11/10/2021 Check / Re-check Influenza Vaccine (#1) 2022 03/12/2021, 03/11/2020, 03/13/2019, Additional history exists Fasting Glucose for Diabetes 02/03/2024 02/02/2021 Screening DTaP,Tdap,and Td Vaccines (5 - Td 06/13/2029 06/13/2019, , or Tdap) 04/07/2005, Additional history exists Pneumococcal vaccine (65+ years) Completed 01/01/2018, 11/2014, 11/02/2012 Zoster Vaccines Completed 03/22/2018, 01/01/2018, 11/27/2008 COVID-19 Vaccine Completed 09/14/2021, 03/16/2021, 08/18/2020, Additional history exists Procedures Procedure Name Priority Date/Time Associated Diagnosis Comme nts ND FNA BX W/US GDN Routine 11/10/2021 3:00 PM Goiter Multinodu lar Results for this 1ST LES CDT Nontoxic procedure are i n the results section. CYTOLOGY FINE Routine 11/10/2021 2:33 PM Nodule Thyroid Result s for this NEEDLE ASPIRATION CDT procedure are in (INCLUDES CORE the results BIOPSIES section. THYROID-STIMULATING Routine 11/10/2021 9:59 AM Nodule Thyroid Results for this HORMONE-SENSITIVE CDT procedure are in (S-TSH) the results section. from Last 3 Months Results ND FNA BX W/US GDN 1ST LES (11/10/2021 3:00 PM CDT) Narrative MMODAL - 11/10/2021 3:00 PM CDT Wild Coelho M.D. ? 11/11/2021 ??7:41 AM FNA Neck Date/Time: 11/10/2021 3:00 PM Performed by: Wild Coelho M.D. Authorized by: Wild Coelho M.D. Care team members present 1. Kentrell Tracy Brown 3. Sacha Mercado R.N. PROCEDURE DETAILS Number [...] Component Value Ref Test Analysis Performed At Patholo gist Range Method Time Signature 11/11/2021 DTL 11:33 AM CDT Report Kehinde TobarB.S. 02/2022 DTL electronically 11:33 AM signed by [...] LAB SURG PATH ORDERABLES Performing Organization Address City/[facility]/ZIP Code Phon e Number [facility] - [address] [place], [place] [address] [facility] [place] [address] Laboratories-[facility] [address] S-TSH (Thyroid-Stimulating Hormone - Sensitive) (11/10/2021 9:59 AM CDT) P athologist Signature TSH, Sensitive 2.9 0.3 - 4.2 11/10/2021 DTL mIU/L 12:55 PM CDT Specimen Anatomical Collection Method Collection Time Receive d Time (Source) Location / / Volume Laterality Blood (Blood, 11/10/2021 9:59 AM 11/11/19 22 Venous) CDT 10:34 AM CDT Angelita Gallego M.D. LAB BLOOD ADD-ON Performing Organization Address City/State/ZIP Code Phon e Number [facility] - [address] [place], [place] [address] [facility] [place] [address] Laboratories-[facility] [address] from Last 3 Months Insurance Payer Benefit Plan / Subscriber ID Effective Phone Address T ype Group Dates [facility] [id number] 2021-Pres [phone] [address] PPO ent [address]45 [place] [address]
--- OUTSIDE RECORDS SUMMARY | 2022-01-28 14:03 | XMS_ITS | Encounter Summary ---
:1945 Author Organization [facility] Address [address] [place] [address] Care Team Providers Name Role Phone Unavailable Primary Care Provider Unavailable Encounter Details Date Type Department Care Team Description 11/10/2021 Hospital Encounter Department of JuliánAngelita walton, Nodule Thyroid Laboratory Medicine and M.D. Pathology, [address] [phone] [place] [address] [place], [place] (Work) [phone] Social History Tobacco Use Types Packs/Day Years [...] or relatives? How often do you attend orthodox or More than 4 times per year 09/21/2021 buddhism services? Do you belong to any clubs or Not asked organizations such as orthodox groups, unions, fraternal or athletic groups, or [...] place to sleep or slept in a half-way (including now)? Education Answer Date Recorded What is the highest level of school Master's degree (e.g., M A, MS, 09/21/2021 you have completed or the highest Cecil, MEd, CERTIFIED GREEN BUILDING ENGINEER, ARMANDO) degree you have received? Sex Assigned at Date Recorded Female 09/21/2021 10:37 AM CDT documented as of this encounter Medications at Time of Discharge Medication Sig Dispensed Refills Start Date End Date acetaminophen (TYLENOL) 32 as needed for pain. 0 mg/mL suspension amLODIPine (NORVASC) 5 mg Take 1 tablet by 0 10/2017 tablet mouth daily. aspirin [address] tablet Take 81 mg by mouth. 0 aspirin/calcium Take 1 tablet by 0 04/20/2012 carb/magnesium (ASPIRIN, mouth daily. BUFFERED ORAL) atorvastatin (LIPITOR) 10 Take 10 mg by mouth 0 0 12/28/2020 mg tablet at bedtime. calcium carbonate/vitamin Take by mouth. 0 D3 (CALCIUM+D ORAL) cholecalciferol (VITAMIN Take 1 capsule by 0 D3) 25 mcg (1,000 Unit) mouth. capsule co-enzyme Q-10 (CO Q-10) Take 1 capsule by 0 04/05 100 mg capsule mouth daily. docosahexaenoic acid-epa Take 2 g by mouth as 0 120-180 mg capsule needed. ELDERBERRY FRUIT AND FLOWER Takes liquid form, 5 0 11/02/2012 ORAL ml at bedtime as needed for expectorant. ibuprofen (ADVIL,MOTRIN) Take 200 mg by mouth 0 0 09/15/2016 100 mg/5 mL suspension as needed. lisinopril-hydroCHLOROthiaz Take 1 tablet by 0 charli (PRINZIDE,ZESTORETIC) mouth daily. 20-25 mg per tablet miscellaneous medical CPAP machine for 0 06/10/19 21 supply misc home use at pressure 10.8cm/H2O, nasal mask x1/3month with nasal cushion x2/mo multivitamin tablet Take by mouth. 0 04/11/2006 nystatin (NYSTOP) 100,000 Apply topically. 0 10/05 unit/gram powder omega 5-dat-pqz-fish oil Take 1 capsule by 0 04/05 900 mg-360 mg- 455 mg-1,000 mouth daily. mg capsule UNABLE TO FIND Med Name: [place] eye 0 drops vit Take 1 capsule by 0 07/10/2017 C,V-Cq-qxtzb-lutein-zeaxan mouth 2 (two) times (AREDS 2) 250-90-40-1 mg a day. per capsule wheat dextrin (BENEFIBER Take by mouth. 0 009 CLEAR SF, DEXTRIN, ORAL) documented as of this encounter Plan of Treatment Not on filedocumented as of this encounter Procedures Procedure Name Priority Date/Time Associated Diagnosis Comme nts THYROID-STIMULATING Routine 11/10/2021 9:59 AM Nodule Thyroid Results for this HORMONE-SENSITIVE CDT procedure are in (S-TSH) the results section. documented in this encounter Results S-TSH (Thyroid-Stimulating Hormone - Sensitive) (11/10/2021 9:59 [...] Organization Address City/State/ZIP Code Phon e Number [facility] - [address] [place], [place] [address] [facility] [place] [address] Laboratories-[facility] [address] documented in this encounter Visit Diagnoses Diagnosis Nodule Thyroid documented in this encounter
--- OUTSIDE RECORDS SUMMARY | 2022-01-28 14:03 | XMS_ITS | Encounter Summary ---
:1945 Author Organization [place] Address [facility] [place] [address] Care Team Providers Name Role Phone Robert Jones MD Primary Care Provider Unavailable Encounter Details Date Type Department Care Team Description 02/17/2014 Care Coordination P Interventional Sarah Howard security project manager Consult Cl inic [phone] [facility] (Work) [address] [phone] Social History Tobacco Use Types Packs/Day Years Used Date Never Smoker Alcohol Use Standard Drinks/Week Comments Yes 0 (1 standard drink = 0.6 oz pure alcoho l) Sex Assigned at Date Recorded Not on file documented as of this encounter Progress Notes Sarah Winslow RN - 02/17/2014 1:00 PM CDT Called pt to inform her that she is due for her 1 year f/u in March [facility] following her for. Informed her that we'd like to have a CT And f/u appt. She informs me that she was informed by Dr Torres that she can f/u via [facility] at the [facility] in which she is doing. She states that she had one a couple of months ago and it was fine. She would prefer this route to reduce the radiation exposure. She then indicated that she would also like to see Melissa for f/u care however. Informed her that will discuss with Dr. Torres and get back to her. She agrees to plan Sarah Winslow RN, BSN Interventional Radiology Nurse Coordinator documented in this encounter Plan of Treatment Not on filedocumented as of this encounter Visit Diagnoses Not on filedocumented in this encounter Care Teams Salt Refiner Relationship Specialty Start Date End Date Robert Jones MD PCP - General Internal Medicine 02/19/13 09/27/20 documented as of this encounter
--- OUTSIDE RECORDS SUMMARY | 2022-01-28 14:03 | XMS_ITS | Encounter Summary ---
:1945 Author Organization [place] Address [facility] [place] [address] Care Team Providers Name Role Phone Robert Jones MD Primary Care Provider Unavailable Encounter Details Date Type Department Care Team Description 03/07/2013 Results Only Surgery Clinic Marisela Torres MD [facility] [address] [facility] [address] [place] [address] 1st Floor, Clinic [address] [place] [address] [place] [phone] Social History Tobacco Use Types Packs/Day Years Used Date Never Smoker Alcohol Use Standard Drinks/Week Comments Yes 0 (1 standard drink = 0.6 oz pure alcoho l) Sex Assigned at Date Recorded Not on file documented as of this encounter Plan of Treatment Scheduled Orders Name Type Priority Associated Diagnoses Order S chedule CT Digital Archive-Non Imaging Order ed: 03/07/2013 [place] documented as of this encounter Visit Diagnoses Not on filedocumented in this encounter Care Teams Fertilizer Mixer Relationship Specialty Start Date End Date Robert Jones MD PCP - General Internal Medicine 02/19/13 09/27/20 documented as of this encounter
--- OUTSIDE RECORDS SUMMARY | 2022-01-28 14:03 | XMS_ITS | Encounter Summary ---
:1945 Author Organization [place] Address [address] [place] [address]. [place] [address] Care Team Providers Name Role Phone Zeynep Keller MD Primary Care Provider [phone] Encounter Details Date Type Department Care Team Description 09/28/2020 Travel Social History Tobacco Use Types Packs/Day Years [...] / COVID-19? documented as of this encounter Plan of Treatment Not on filedocumented as of this encounter Visit Diagnoses Not on filedocumented in this encounter Care Teams Loss Prevention Supervisor Relationship Specialty Start Date End Date Zeynep Keller MD PCP - General Family Medicine 09/28/[address] [address] documented as of this encounter
--- OUTSIDE RECORDS SUMMARY | 2022-01-28 14:03 | XMS_ITS | Encounter Summary ---
:1945 Author Organization [place] Address [facility]ly [facility] [place] [address] Care Team Providers Name Role Phone Rboert Jones MD Primary Care Provider Unavailable Encounter Details Date Type Department Care Team Description 03/07/2013 Results Only Surgery Clinic Marisela Torres MD [facility] [address] [facility] [address] [place] [address] 1st Floor, Clinic [address] [place] [address] [place] [phone] Social History Tobacco Use Types Packs/Day Years Used Date Never Smoker Alcohol Use Standard Drinks/Week Comments Yes 0 (1 standard drink = 0.6 oz pure alcoho l) Sex Assigned at Date Recorded Not on file documented as of this encounter Plan of Treatment Scheduled Orders Name Type Priority Associated Diagnoses Order S chedule CT Digital Archive-Non Imaging Order ed: 03/07/2013 [place] documented as of this encounter Visit Diagnoses Not on filedocumented in this encounter Care Teams Purchasing Manager/Sales Relationship Specialty Start Date End Date Robert Jones MD PCP - General Internal Medicine 02/19/13 09/27/20 documented as of this encounter
--- OUTSIDE RECORDS SUMMARY | 2022-01-28 14:03 | XMS_ITS | Encounter Summary ---
:1945 Author Organization [place] Address [address] [place] [address] Care Team Providers Name Role Phone Zeynep Keller MD Primary Care Provider [phone] Encounter Details Date Type Department Care Team Description 10/27/2020 Records - [facility] RAYGOZA CONVERSION Provider, Histor ical Social History Tobacco Use Types Packs/Day Years [...] Name Priority Date/Time Associated Diagnosis Comme nts XR FOOT RIGHT G/E 3 Routine 04/09/2000 12:00 AM R esults for this VIEWS MAIL INSERTER procedure are i n the results section. documented in this encounter Results XR Foot Right G/E 3 Views (04/09/2000 12:00 AM MAIL INSERTER) Anatomical Region Laterality Modality Foot, Ankle Right Other Specimen (Source) Anatomical Location Collection Method / Collectio n Time Received Time / Laterality Volume Narrative 04/09/2000 12:00 AM MAIL INSERTER See Historical Hospital Medical Record f or documentation Procedure Note Provider, Historical - 10/27/2020Formatt ing of this note might be different from the original. 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
--- OUTSIDE RECORDS SUMMARY | 2022-01-28 14:03 | XMS_ITS | Encounter Summary ---
:1945 Author Organization [place] Address [facility] [place] [address] Care Team Providers Name Role Phone Robert Jones MD Primary Care Provider Unavailable Encounter Details Date Type Department Care Team Description 03/07/2013 Results Only Surgery Clinic Marisela Torres MD [facility] [address] [facility] [address] [place] [address] 1st Floor, Clinic [address] [place] [address] [place] [phone] Social History Tobacco Use Types Packs/Day Years Used Date Never Smoker Alcohol Use Standard Drinks/Week Comments Yes 0 (1 standard drink = 0.6 oz pure alcoho l) Sex Assigned at Date Recorded Not on file documented as of this encounter Plan of Treatment Scheduled Orders Name Type Priority Associated Diagnoses Order S chedule CT Digital Archive-Non Imaging Order ed: 03/07/2013 [place] documented as of this encounter Visit Diagnoses Not on filedocumented in this encounter 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
--- OUTSIDE RECORDS SUMMARY | 2022-01-28 14:04 | XMS_ITS | Encounter Summary ---
:[address] [facility] Address [address] [place] [address] Care Team Providers Name Role Phone Unavailable Primary Care Provider Unavailable Encounter Details Date Type Department Care Team Description 02/19/2018 Hospital Encounter Department of Shahid Flanagan Splenic Radiology, Fady Watson M.D. Artery ([facility]) Building, in [address] [facility] [address] [place], [place] [phone] (Work) [phone] Social History Tobacco Use Types Packs/Day Years Used Date Smoking Tobacco: Never Assessed Alcohol Habits Answer Date Recorded How often [...] or relatives? How often do you attend mu-ism or More than 4 times per year 09/21/2021 religion services? Do you belong to any clubs or Not asked organizations such as mu-ism groups, unions, fraternal or athletic groups, or [...] or slept in a half-way (including now)? Sex Assigned at Date Recorded Female 09/21/2021 10:37 AM CDT documented as of this encounter Medications at Time of Discharge Medication Sig Dispensed Refills Start Date End Date amLODIPine (NORVASC) 5 mg Take 1 tablet by 0 10/2017 tablet mouth daily. aspirin [address] tablet Take 81 mg by mouth. 0 aspirin/calcium Take 1 tablet by 0 04/20/2012 carb/magnesium (ASPIRIN, mouth daily. BUFFERED ORAL) co-enzyme Q-10 (CO Q-10) Take 1 capsule by 0 04/05 100 mg capsule mouth daily. ELDERBERRY FRUIT AND Takes liquid form, 5 0 11/02 FLOWER ORAL ml at bedtime as needed for expectorant. ibuprofen (ADVIL,MOTRIN) Take 200 mg by mouth 0 0 09/15/2016 100 mg/5 mL suspension as needed. multivitamin tablet Take by mouth. 0 04/11/2006 nystatin (NYSTOP) 100,000 Apply topically. 0 10/05 unit/gram powder omega 0-zdo-gcb-fish oil Take 1 capsule by 0 04/05 900 mg-360 mg- 455 mouth daily. mg-1,000 mg capsule vit Take 1 capsule by 0 07/10/2017 C,L-Rz-zhhju-lutein-zeaxan mouth 2 (two) times a (AREDS 2) 250-90-40-1 mg day. per capsule wheat dextrin (BENEFIBER Take by mouth. 0 009 CLEAR SF, DEXTRIN, ORAL) documented as of this encounter Plan of Treatment Not on filedocumented as of this encounter Procedures Procedure Name Priority Date/Time Associated Comments Diagnosis US ABDOMEN PELVIS RAD - Routine 02/19/2018 11:47 Aneurysm Splenic R esults for this VESSELS DOPPLER (most inpatients AM CDT Artery (HCC) procedur e are in and all the results outpatients) section. documented in this encounter Results US Abdomen Pelvis Vessels Doppler (02/19/2018 11:47 AM CDT) Anatomical Region Laterality Modality Abdomen, Pelvis, Ultrasound RST LOS, Ultrasound ARZ LOS N/A Ultrasound Specimen (Source) Anatomical Collection Method Collection Time Re ceived Time Location / / Volume Laterality 02/19/2018 11:58 AM CDT Impressions 02/19/2018 12:01 PM CDT IMPRESSION: ??Stable, small splenic artery aneurysm. ?? Narrative 02/19/2018 12:01 PM CDT EXAM: US ABDOMEN PELVIS VESSELS DOPPLER Exam performed with color and spectral D oppler analysis. COMPARISON: Ultrasound of the splenic ar [facility] 12/17/2015. ?? FINDINGS: The spleen measures 12.6 cm. A periphera lly calcified splenic artery aneurysm is not significantly changed measuring 1.3 x 1.3 cm; previously 1.3 x 1.2 cm. The aneurysm remains patent. Procedure Note Дмитрий Polanco M.D. - 02/19/2018 EXAM: US ABDOMEN PELVIS VESSELS DOPPLER Exam performed with color and spectral D oppler analysis. COMPARISON: Ultrasound of the splenic ar [facility] 12/17/2015. FINDINGS: The spleen measures 12.6 cm. A periphera lly calcified splenic artery aneurysm is not significantly changed measuring 1.3 x 1.3 cm; previously 1.3 x 1.2 cm. The aneurysm remains patent. IMPRESSION: Stable, small splenic artery aneurysm. Shahid WOOD US PROCEDURES documented in this encounter Visit Diagnoses Diagnosis Aneurysm Splenic Artery (HCC) documented in this encounter
--- OUTSIDE RECORDS SUMMARY | 2022-01-28 14:04 | XMS_ITS | Encounter Summary ---
:1945 Author Organization [facility] Address [address] [place] [address] Care Team Providers Name Role Phone Unavailable Primary Care Provider Unavailable Encounter Details Date Type Department Care Team Description 01/28/2021 Hospital Encounter Department of Zeke Nobles er For Preprocedural Laboratory Examination (COVID-19); Laboratory Medicine Zari Campuzano, M.S . Negative COVID-19 Test (Contact With And (Suspected) Exposure To COVID-19) in [place], [facility][note 2] [address] [place], [place] [address] [place] [address] [place], [place] [phone] [address] (Work) [phone] Social History Tobacco Use Types Packs/Day Years [...] or relatives? How often do you attend alevism or More than 4 times per year 09/21/2021 christianity services? Do you belong to any clubs or Not asked organizations such as alevism groups, unions, fraternal or athletic groups, or [...] place to sleep or slept in a custodial (including now)? Sex Assigned at Date Recorded [...] 0 0 12/28/2020 mg tablet at bedtime. co-enzyme Q-10 (CO Q-10) Take 1 capsule by 0 04/05 100 mg capsule mouth daily. ELDERBERRY FRUIT AND Takes liquid form, 5 0 11/02 FLOWER ORAL ml at bedtime as needed for expectorant. ibuprofen (ADVIL,MOTRIN) Take 200 mg by mouth 0 0 09/15/2016 100 mg/5 mL suspension as needed. lisinopril-hydroCHLOROthia Take 1 tablet by 0 zide (PRINZIDE,ZESTORETIC) mouth daily. 20-25 mg per tablet miscellaneous medical CPAP machine for home 0 11/2020 supply misc use at pressure 10.8cm/H2O, nasal mask x1/3month with nasal cushion x2/mo multivitamin tablet Take by mouth. 0 04/11/2006 nystatin (NYSTOP) 100,000 Apply topically. 0 10/05 unit/gram powder omega 8-lkh-unx-fish oil Take 1 capsule by 0 04/05 900 mg-360 mg- 455 mouth daily. mg-1,000 mg capsule vit Take 1 capsule by 0 07/10/2017 C,N-Cv-ftikl-lutein-zeaxan mouth 2 (two) times a (AREDS 2) 250-90-40-1 mg day. per capsule wheat dextrin (BENEFIBER Take by mouth. 0 009 CLEAR SF, DEXTRIN, ORAL) documented as of this encounter Plan of Treatment Not on filedocumented as of this encounter Procedures Procedure Name Priority Date/Time Associated Diagnosis Comme nts SARS CORONAVIRUS-2 Routine 01/28/2021 9:56 AM Encounter For Re sults for this RNA, V CDT Preprocedural procedure are in Laboratory Examination the r esults (COVID-19) section. Negative COVID-19 Test (Contact With And (Suspected) Exposure To COVID-19) documented in this encounter Results SARS Coronavirus-2 RNA, V Asymptomatic (01/28/2021 9:56 AM CDT) [facility] Method Time Signature SARS-CoV-2 Swab, 01/28/2021 MKTO Specimen Nasopharynx 11:51 PM Source CDT SARS CoV-2 Undetected Undetected 01/28/2021 MKTO RNA, TMA 11:51 PM CDT Comment: SARS-CoV-2 RNA absent. This result does not rule out COVID-19 in the patient, as the sensitivity of the test depends o n the timing of the specimen collection and the quality of the specim en. Result should be correlated with patient's history and clinical presentat ion. ----ADDITIONAL INFORMATION---- This molecular amplification test was pe rformed using the Aptima SARS-CoV-2 assay ([employer] on the [employer] tem under emergency use authorization (EUA) by the U.S. Food and Drug Administ ration. Fact sheets for this EUA assay can be fo und at the following links: For Healthcare Providers: https://www.fd a.gov/media/258694/download For Patients: https://www.fda.gov/media/ 911628/download Specimen Anatomical Collection Method Collection Time Receive d Time (Source) Location / / Volume Laterality Varies 01/28/2021 9:56 AM 3:24 (Nasopharynx) CDT PM CDT Zeke oNbles M.D., M.S. LAB MICROBIOLOGY - GENERAL O RDERABLES Performing Organization Address City/State/ZIP Code Phon e Number [facility] [address] [place] [address] [place] [address] [address] documented in this encounter Visit Diagnoses Diagnosis Encounter For Preprocedural Laboratory E xamination (COVID-19) Negative COVID-19 Test (Contact With And (Suspected) Exposure To COVID-19) documented in this encounter Additional Health Concerns Infection Onset Date Last Indicated Resolved Time COVID19 Pending 01/28/2021 01/28/2021 01/28/2021 11:52 PM CDT documented as of this encounter
--- OUTSIDE RECORDS SUMMARY | 2022-01-28 14:04 | XMS_ITS | Encounter Summary ---
:1945 Author Organization [facility] Address [address] [place] [address] Care Team Providers Name Role Phone Unavailable Primary Care Provider Unavailable Encounter Details Date Type Department Care Team Description 02/02/2021 Hospital Encounter Department of Dm Moyer Splenic Laboratory Medicine Zari Guzman Artery (HCC) and Pathology, [address] [place] [address], in [place] [phone] [phone] [place] [address] (Work) [place], [place] [phone] (Fax) [phone] Social History Tobacco Use Types Packs/Day Years [...] or relatives? How often do you attend oriental orthodox or More than 4 times per year 09/21/2021 restorationism services? Do you belong to any clubs or Not asked organizations such as oriental orthodox groups, unions, fraternal or athletic groups, [...] place to sleep or slept in a fdc (including now)? Sex Assigned at Date Recorded [...] Apply topically. 0 10/05 unit/gram powder omega 0-bfw-onb-fish oil Take 1 capsule by 0 04/05 900 mg-360 mg- 455 mouth daily. mg-1,000 mg capsule vit Take 1 capsule by 0 07/10/2017 C,V-Dk-zyywa-lutein-zeaxan mouth 2 (two) times a (AREDS 2) 250-90-40-1 mg day. per capsule wheat dextrin (BENEFIBER Take by mouth. 0 009 CLEAR SF, DEXTRIN, ORAL) documented as of this encounter Plan of Treatment Not on filedocumented as of this encounter Procedures Procedure Name Priority Date/Time Associated Comments Diagnosis CBC WITH DIFFERENTIAL, B Routine 02/02/2021 7:49 Aneurysm Sple jayna Results for this AM CDT Artery (HCC) procedure are i n the results section. ASPARTATE Routine 02/02/2021 7:49 Aneurysm Splenic Results for this AMINOTRANSFERASE (AST), AM CDT Artery (HCC) proc edure are in S/P the results section. BASIC METABOLIC PANEL, Routine 02/02/2021 7:49 Aneurysm Spleni c Results for this S/P AM CDT Artery (HCC) procedure are i n the results section. documented in this encounter Results AST (Aspartate Aminotransferase) (02/02/2021 7:49 AM CDT) Patholo gist Method Time Signature Aspartate 22 8 - 43 02/02/2021 DTL Aminotransferase U/L 9:18 AM CDT (AST), S Specimen Anatomical Collection Method Collection Time Receive d Time (Source) Location / / Volume Laterality Blood (Blood, 02/02/2021 7:49 AM 02/03/20 21 8:53 Venous) CDT AM CDT Dm Moyer M.D. LAB BLOOD ADD-ON Performing Organization Address City/State/[facility] Code Phon e Number [facility] - [address] [place], [place] [phone] [facility] [address] Laboratories-[facility] 200 [facility] (ABNORMAL) Basic Metabolic Panel (02/02/2021 7:49 AM CDT) P athologist Signature Potassium, S 4.3 3.6 - 5.2 02/02/2021 DTL mmol/L 9:18 AM CDT Sodium, S 141 135 - 145 02/02/2021 DTL mmol/L 9:18 AM CDT Chloride, S 98 98 - 107 02/02/2021 DTL mmol/L 9:18 AM CDT Bicarbonate, S 33 (H) 22 - 29 02/02/2021 DTL mmol/L 9:18 AM CDT Anion Gap 10 7 - 15 02/02/2021 DTL 9:18 AM CDT BUN (Blood Urea 11 6 - 21 02/02/2021 DTL Nitrogen), S mg/dL 9:18 AM CDT Creatinine 0.85 0.59 - 02/02/2021 DTL 1.04 mg/dL 9:18 AM CDT eGFR-Non 68 >=60 02/02/2021 DTL Black/ mL/min/BSA 9:18 AM CDT Syrian Comment: ----ADDITIONAL INFORMATION---- Estimated GFR calculated using the 2009 CKD_EPI creatinine equation. eGFR-Black/ 79 >=60 mL/min/BSA 2020 9:18 AM CDT DTL Comment: ----ADDITIONAL INFORMATION---- Estimated GFR calculated using the 2009 CKD_EPI creatinine equation. Calcium, Total, S 10.2 8.8 - 10.2 mg/dL 02/02/2021 9:18 AM CDT DTL Glucose, S 89 70 - 140 mg/dL 02/02/2021 9:18 AM CDT D TL Specimen Anatomical Collection Method Collection Time Receive d Time (Source) Location / / Volume Laterality Blood (Blood, 02/02/2021 7:49 AM 02/03/20 8:53 Venous) CDT AM CDT Dm Moyer M.D. LAB BLOOD ADD-ON Performing Organization Address City/State/ZIP Code Phon e Number [facility] - [address] [place] [phone] [facility] [place] [address] Laboratories-[facility] 200 [facility] CBC with Differential, Blood (02/02/2021 7:49 AM CDT) P athologist Signature Hemoglobin 12.9 11.6 - 02/02/2021 DTL 15.0 g/dL 8:52 AM CDT Hematocrit 40.4 35.5 - 02/02/2021 DTL 44.9 % 8:52 AM CDT Erythrocytes 4.40 3.92 - 02/02/2021 DTL 5.13 8:52 AM CDT x10(12)/L MCV 91.8 78.2 - 02/02/2021 DTL 97.9 fL 8:52 AM CDT RBC Distrib Width 12.9 12.2 - 02/02/2021 DTL 16.1 % 8:52 AM CDT Platelet Count 174 157 - 371 02/02/2021 DTL x10(9)/L 8:52 AM CDT Leukocytes 6.8 3.4 - 9.6 02/02/2021 DTL x10(9)/L 8:52 AM CDT Neutrophils 4.16 1.56 - 02/02/2021 DTL 6.45 8:52 AM CDT x10(9)/L Lymphocytes 1.79 0.95 - 02/02/2021 DTL 3.07 8:52 AM CDT x10(9)/L Monocytes 0.74 0.26 - 02/02/2021 DTL 0.81 8:52 AM CDT x10(9)/L Eosinophils 0.05 0.03 - 02/02/2021 DTL 0.48 8:52 AM CDT x10(9)/L Basophils 0.05 0.01 - 02/02/2021 DTL 0.08 8:52 AM CDT x10(9)/L Specimen Anatomical Collection Method Collection Time Receive d Time (Source) Location / / Volume Laterality Blood (Blood, 02/02/2021 7:49 AM 02/03/20 21 8:39 Venous) CDT AM CDT Dm Moyer M.D. LAB BLOOD ADD-ON Performing Organization Address City/State/ZIP Code Phon e Number [facility] - [address] [place], [place] [phone] [facility] [address] Laboratories[facility] [address] documented in this encounter Visit Diagnoses Diagnosis Aneurysm Splenic Artery (HCC) documented in this encounter
--- OUTSIDE RECORDS SUMMARY | 2022-01-28 14:04 | XMS_ITS | Encounter Summary ---
:1945 Author Organization [facility] Address [address] [place] [address] Care Team Providers Name Role Phone Unavailable Primary Care Provider Unavailable Reason for Visit Reason Comments Basal Cell Carcinoma Outpatient (Routine) - Closed Specialty Diagnoses / Procedures Referred By Contact Refer red To Contact Dermatology Diagnoses Basal Cell Carcinoma Skin Other Parts Face Zeke Nobles M.D., [facility] Procedures ARACELI MOHS 1-4 sites M.S. [address] [place] [address] Referral ID Status Reason Start Date Expiration Date Visits Requ ested Visits Authorized [id number] Closed 12/17/2020 12/17/2021 1 1 Encounter Details Date Type Department Care Team Description 02/02/2021 Procedure visit Department of Jose A Lucero, Basal Ce ll Carcinoma Dermatology in M.D. Skin Other Parts Face [place], [place] [address] [facility] [address] [place] [phone] Social History Tobacco Use Types Packs/Day Years [...] or relatives? How often do you attend nondenominational or More than 4 times per year 09/21/2021 advent services? Do you belong to any clubs or Not asked organizations such as nondenominational groups, unions, fraternal or athletic groups, or [...] place to sleep or slept in a nursing home (including now)? Sex Assigned at Date Recorded Female 09/21/2021 10:37 AM CDT documented as of this encounter Last Filed Vital Signs Vital Sign Reading Time Taken Comments Blood Pressure 146/85 02/02/2021 9:00 AM CDT Pulse 77 02/02/2021 9:00 AM CDT Temperature - - Respiratory Rate - - Oxygen Saturation - - Inhaled Oxygen Concentration - - Weight - - Height - - Body Mass Index - - documented in this encounter Procedure Notes China Oconnor M.D. - 02/02/2021 10:30 AM CDTAssociated Order(s): ARACELI MOHS 1-4 SITES PREOP INDICATION: REMOVAL. Date of Surgery: 02/02/2021 Surgeon: Dr. Jose A Lucero Cook Larder: Dr. Harpreet Adma and Dr. China Oconnor Location: [facility]: Floor:16 Room:[facility] Visit Type: Outpatient PostOp Diagnosis: Nodular basal cell carcinoma Anatomic Location: Right preauricular cheek Preoperative size: 0.3 x 0.4 cm [facility] number: 12 Indication(s) for Mohs Micrographic Surgery: anatomic location where tissue conservation is critical Procedure(s): Mohs micrographic surgery with intermediate layered closure Prior to the procedure, final verification of the patient identity and correct marked surgical site was performed. Procedural pause conducted to verify: correct patient identity, procedure to be performed and as applicable, correct side and site, correct patient position, and availability of implants, special equipment or special requirements. INFORMED CONSENT Discussed the risks, benefits, alternatives, and the necessity of other members of the healthcare team participating in the procedure. All questions answered and consent given. PATIENT EDUCATION Ready to learn, no apparent learning barriers were identified; learning preferences include listening. Explained diagnosis and treatment plan; patient expressed understanding of the content. Preoperative medications: None The anesthesia used was 1% lidocaine and 0.25% bupivacaine with 1:200,000 epinephrine. The skin was prepped in a sterile fashion with Hibiclens. Histologic tumor-free margins were obtained in 1 stage (2 blocks, A1-2) by standard Mohs micrographic techniques with the Mohs surgeon performing both the surgery and pathology. The final defect depth was down to level of: subcutaneous fat. Postoperative size: 1.0 x 1 point known cm. Closure: Anesthesia with 1% lidocaine with 1:200,000 epinephrine and another sterile prep were performed. An intermediate layered closure was planned, and Burow's triangles were excised from opposite poles of the defect in the direction of the skin tension lines. The wound was undermined as needed, and hemostasis was obtained with electrocoagulation. The wound edges were closed with 5 0 Monocryl subcutaneous sutures and Dermabond. Postoperative length: 2.9 cm. Estimated blood loss: Minimal. Complications: None. Wound care: Routine. Postoperative medications: None documented in this encounter Consult Notes China Oconnor M.D. - 02/02/2021 10:30 AM CDT Referral Zeke Nobles M.D., M.S. Chief Complaint Treatment of nodular basal cell carcinoma on the right preauricular cheek HISTORY OF THE PRESENT ILLNESS Adalgisa Layton is a pleasant 75 y.o. 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 This lesion was biopsied at an outside facility. Pathology slide was reviewed by Dr. Yael silva at [facility]. She reports that she has a history of basal cell carcinoma on the left cheek 2 years ago that has already been treated. She does not have any history of melanoma. 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 The dermatologic surgery preoperative information sheet was reviewed. She has a history of splenic artery aneurysm that is currently being monitored by ultrasound. She has a vascular appointment later today. 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 The patient otherwise denies history of heart disease, pacemaker, defibrillator, lung disease, liver disease, stroke, infectious diseases (including hepatitis B, hepatitis C, or HIV), diabetes, organ transplant, bleeding or health problems. The patient denies artificial joints or other implants. PHYSICAL EXAM Vitals: BP 146/85, HR 77 General: Awake, alert, in no acute distress, and with appropriate affect. Skin: A limited skin examination was performed per patient preference. Involving the right preauricular cheek, there is a well-healed biopsy site. IMPRESSION AND PLAN #1 Nodular basal cell carcinoma on the right preauricular cheek The patient presents today for treatment of a nodular basal cell carcinoma the right preauricular cheek with Mohs surgery. We discussed risks and benefits of the procedure including scar, bleeding, infection, pain, recurrence, dysesthesia, and activity limitations. Patient wished to proceed. Her tumorwas cleared in 1 stage. A primary closure was performed with 5 0 Monocryl and Dermabond. The patienttolerated the procedure well. Please see the operative note for further detail. PROCEDURAL PAUSE Procedural pause conducted to verify: correct patient identity, procedure to be performed, and as applicable, correct side and site, correct patient position, and availability of implants, special equipment, or special requirements. PATIENT EDUCATION Ready to learn. No apparent learning barriers were identified. Learning preferences include listening. Explained diagnosis and treatment plan; patient/guardian of patient expressed understanding of thecontent. INFORMED CONSENT Discussed the risks, benefits, alternatives, and the necessity of other members of the healthcare team participating in the procedure. All questions answered and consent given. China Oconnor MD Dermatology Resident, PGY-3 Pager: [phone] Associated attestation - Jose A Lucero M.D. - 02/02/2021 4:44 PM CDT I was present during all critical and hermosillo portions of the procedure(s) and immediately available to furnish services the entire duration. See resident/fellow note for details. documented in this encounter Plan of Treatment Not on filedocumented as of this encounter Procedures Procedure Name Priority Date/Time Associated Diagnosis Comme nts ARACELI MOHS 1-4 SITES Routine 02/02/2021 10:30 AM Basal Cell Carc inoma Results for this CDT Skin Other Parts procedure a re in Face the results section. documented in this encounter Results ARACELI [facility] 1-4 sites (02/02/2021 10:30 AM CDT) Narrative Jose A Lucero M.D. - 02/02/2021 10:30 AM CDT China Oconnor M.D. ? 02/02/2021 ??3:34 PM PREOP INDICATION: REMOVAL. Date of Surgery: 02/02/2021 Surgeon: Dr. Jose A Lucero Cook Larder: Dr. Harpreet Adam and Dr. China Oconnor Location: [place] ?? dg:GO ?? Floor: 16 ?? Room:[facility] Visit Type: Outpatient PostOp Diagnosis: ??Nodular basal cell c arcinoma Anatomic Location: ??Right preauricular cheek Preoperative size: ??0.3 x 0.4 cm [facility] number: 12 Indication(s) for Mohs Micrographic Surg richard: anatomic location where tissue conservation is critical Procedure(s): Mohs micrographic surgery with intermediate layered closure Prior to the procedure, final verificati on of the patient identity and correct marked surgical site was perform ed. Procedural pause conducted to verify: co rrect patient identity, procedure to be performed and as applicable, corre ct side and site, correct patient position, and availability of implants, special equipment or special requirements. INFORMED CONSENT Discussed the risks, benefits, alternati ves, and the necessity of other members of the healthcare team participa ting in the procedure. ?? All questions answered and consent given. PATIENT EDUCATION Ready to learn, no apparent learning bar riers were identified; learning preferences include listening. ??Explain ed diagnosis and treatment plan; patient expressed understanding of the c ontent. Preoperative medications: ??None The anesthesia used was 1% lidocaine and 0.25% bupivacaine with 1:200,000 epinephrine. ??The skin was prepped in a sterile fashion with Hibiclens. Histologic tumor-free margins were obtai angeline in 1 stage (2 blocks, A1-2) by standard Mohs micrographic tech niques with the Mohs surgeon performing both the surgery and pathology. The final defect depth was down to level of: subcu taneous fat. Postoperative size: ??1.0 x 1 point know n cm. Closure: Anesthesia with 1% lidocaine with 1:200, 000 epinephrine and another sterile prep were performed. ??A n intermediate layered closure was planned, and Burow's triangl es were excised from opposite poles of the defect in the dire ction of the skin tension lines. ??The wound was undermined as nee ded, and hemostasis was obtained with electrocoagulation. ??The wound edges were closed with 5 0 Monocryl subcutaneous sutures a nd Dermabond. ?? Postoperative length: ??2.9 cm. ??Estima kinsey blood loss: Minimal. ?? Complications: None. ??Wound care: Maryann ramsay. Postoperative medications: ??None Zeke Nobles M.D., M.S. DERM PROCEDURE ORDERABLES documented in this encounter Visit Diagnoses Diagnosis Basal Cell Carcinoma Skin Other Parts Fa ce documented in this encounter Administered Medications Inactive Administered Medications - up to 3 most recent administrations Medication Order MAR Action Action Date Dose Rate Site pkpuvqcproi-nizdsyape-ZEVYICBkrkm Given 02/02/2021 2:05 PM CDT 2 mL 0.25%-1%-1:200,000 injection 2-25 mL 2-25 mL, injection, As needed, may repeat if the patient complains of pain/discomfort at the site up to 50 mL for entire procedure, Starting on Mon02/02/21 at 0952, For 1 day lidocaine-EPINEPHrine 1%-1:200,000 injection Given 02/02/2021 2: 05 PM CDT 6 mL 2-50 mL (XYLOCAINE W/EPI) 2-50 mL, injection, As needed, may repeat if the patient complains of pain/discomfort at the site up to 50 mL for entire procedure, Starting on Mon02/02/21 at 0952, For 1 day documented in this encounter
--- OUTSIDE RECORDS SUMMARY | 2022-01-28 14:04 | XMS_ITS | Encounter Summary ---
:1945 Author Organization [facility] Address [address] [place] [address] Care Team Providers Name Role Phone Unavailable Primary Care Provider Unavailable Reason for Visit Reason Comments Pre-visit Intake Encounter Details Date Type Department Care Team Description 11/09/2021 Clinical Communication Visit Review in Pr e-visit Intake [place], [place] [address] [place] [address] Social History Tobacco Use Types Packs/Day Years [...] or relatives? How often do you attend sikhism or More than 4 times per year 09/21/2021 tenriism services? Do you belong to any clubs or Not asked organizations such as sikhism groups, unions, fraternal or athletic groups, or [...] place to sleep or slept in a penitentiary (including now)? Education Answer Date Recorded What is the highest level of school Master's degree (e.g., Brock Dang MS, 09/21/2021 you have completed or the highest Cecil, MEd, HY[employer]OELECTRIC STATION OPERATOR, [employer]) degree you have received? Sex Assigned at Date Recorded Female 09/21/2021 10:37 AM CDT documented as of this encounter Plan of Treatment Not on filedocumented as of this encounter Visit Diagnoses Not on filedocumented in this encounter
--- OUTSIDE RECORDS SUMMARY | 2022-01-28 14:04 | XMS_ITS | Encounter Summary ---
:1945 Author Organization [facility] Address [address] [place] [address] Care Team Providers Name Role Phone Unavailable Primary Care Provider Unavailable Reason for Visit Outpatient (Routine) - Closed Specialty Diagnoses / Procedures Referred By Contact Refer red To Contact Diagnoses Aneurysm Splenic Artery (HCC) Dm Moyer M.D. [facility] Procedures US Abdomen Pelvis Vessels Limited Doppler US Mesenteric Artery [address] [place] [phone] Referral ID Status Reason Start Date Expiration Date Visits Requ ested Visits Authorized [id number] Closed 12/15/2020 12/15/2021 1 1 Encounter Details Date Type Department Care Team Description 02/02/2021 Hospital Encounter Department of Dm Moyer [facility] Splenic Radiology, Fady Guzman M.D. Artery (HCC) [facility], in [address] [place] [phone] [place] [address] [place], [place] (Work) [phone] Social History Tobacco Use Types Packs/Day Years [...] or relatives? How often do you attend jain or More than 4 times per year 09/21/2021 druze services? Do you belong to any clubs or Not asked organizations such as jain groups, unions, fraternal or athletic groups, or [...] place to sleep or slept in a [place] (including now)? Sex Assigned at Date Recorded [...] Take by mouth. 0 D3 (CALCIUM+D ORAL) co-enzyme Q-10 (CO Q-10) Take 1 [...] Apply topically. 0 10/05 unit/gram powder omega 5-eic-kzs-fish oil Take 1 capsule by 0 04/05 900 mg-360 mg- 455 mouth daily. mg-1,000 mg capsule UNABLE TO FIND Med Name: [place] eye 0 drops vit Take 1 capsule by 0 07/10/2017 C,V-Oo-igbtc-lutein-zeaxan mouth 2 (two) times a (AREDS 2) 250-90-40-1 mg day. per capsule wheat dextrin (BENEFIBER Take by mouth. 0 009 CLEAR SF, DEXTRIN, ORAL) documented as of this encounter Plan of Treatment Not on filedocumented as of this encounter Procedures Procedure Name Priority Date/Time Associated Comments Diagnosis US ABDOMEN PELVIS RAD - Routine 02/02/2021 8:45 Aneurysm Splenic Re sults for this VESSELS LIMITED (most inpatients AM CDT Artery (HCC) procedur e are in DOPPLER and all the results outpatients) section. documented in this encounter Results US Abdomen Pelvis Vessels Limited Doppler (02/02/2021 8:45 AM CDT) Anatomical Region Laterality Modality Abdomen, Pelvis, Ultrasound RST LOS, Ultrasound ARZ LOS, N/A Ultrasound Ultrasound FLA LOS Specimen (Source) Anatomical Collection Method Collection Time Re ceived Time Location / / Volume Laterality 02/02/2021 8:48 AM CDT Impressions 02/02/2021 8:49 AM CDT Stable 1.3 cm splenic artery aneurysm Narrative 02/02/2021 8:49 AM CDT EXAM: ??US ABDOMEN PELVIS VESSELS LIMITED DOPPLER Exam performed with color and spectral D oppler analysis. COMPARISON: ??Prior ultrasound 8 FINDINGS: ??Stable peripherally calcifie d 1.3 cm splenic artery aneurysm located near the splenic hilum. The aneurysm rem ains patent with flow present. Normal sized spleen with a length of 12. 1 cm Procedure Note Morgan Hernandez M.D. - 02/02/2021Formatti ng of this note might be different from the original. EXAM: US ABDOMEN PELVIS VESSELS LIMITED DOPPLER Exam performed with color and spectral D oppler analysis. COMPARISON: Prior ultrasound 02/19/2018 FINDINGS: Stable peripherally calcified 1.3 cm splenic artery aneurysm located near the splenic hilum. The aneurysm rem ains patent with flow present. Normal sized spleen with a length of 12. 1 cm IMPRESSION: Stable 1.3 cm splenic artery aneurysm Dm WOOD US PROCEDURES documented in this encounter Visit Diagnoses Diagnosis Aneurysm Splenic Artery (HCC) documented in this encounter
--- OUTSIDE RECORDS SUMMARY | 2022-01-28 14:04 | XMS_ITS | Encounter Summary ---
:1945 Author Organization [facility] Address [address] [place] [address] Care Team Providers Name Role Phone Unavailable Primary Care Provider Unavailable Encounter Details Date Type Department Care Team Description 02/02/2021 Ancillary Procedure Department of Dermatology Social History Tobacco Use Types Packs/Day Years [...] or relatives? How often do you attend restoration or More than 4 times per year 09/21/2021 latter-day services? Do you belong to any clubs or Not asked organizations such as restoration groups, unions, fraternal or athletic groups, or [...] or slept in a penitentiary (including now)? Sex Assigned at Date Recorded Female 09/21/2021 10:37 AM CDT documented as of this encounter Plan of Treatment Not on filedocumented as of this encounter Procedures Procedure Name Priority Date/Time Associated Comments Diagnosis DERMATOLOGY IMAGE Routine 02/02/2021 12:15 Result s for this EXAM AM CDT procedure are i n the results section. documented in this encounter Results cheek, right preauricular 12 Mohs micrographic surgery-Dermatology Image Exam (02/02/2021 12:15 AM CDT) Specimen (Source) Anatomical Location Collection Method / Collectio n Time Received Time / Laterality Volume Narrative [facility] - 02/02/2021 1:54 PM CDT This order has been created and auto-finalized to support the import of images acquired without order. The clini perri documentation to support these images can be found on the encounter jordi t produced images. Provider Not In System IMG NON RAD IMAGING PROCEDUR ES Performing Organization Address City/State/ZIP Code Phon e Number [facility] NA documented in this encounter Visit Diagnoses Not on filedocumented in this encounter
--- OUTSIDE RECORDS SUMMARY | 2022-01-28 14:04 | XMS_ITS | Encounter Summary ---
:1945 Author Organization [facility] Address [address] [place] [address] Care Team Providers Name Role Phone Unavailable Primary Care Provider Unavailable Encounter Details Date Type Department Care Team Description 12/17/2020 Lab RST RO Zeke Baum, Basal Cell Carcinoma Skin [address] [facility] MMonty, [place] [address] [place] [phone] (Wo rk) Social History Tobacco Use Types Packs/Day Years [...] or relatives? How often do you attend evangelical or More than 4 times per year 09/21/2021 hoahaoism services? Do you belong to any clubs or Not asked organizations such as evangelical groups, unions, fraternal or athletic groups, or [...] place to sleep or slept in a intermediate (including now)? Sex Assigned at Date Recorded Female 09/21/2021 10:37 AM CDT documented as of this encounter Plan of Treatment Not on filedocumented as of this encounter Procedures Procedure Name Priority Date/Time Associated Diagnosis Comme nts PATHOLOGY REVIEW OF Routine 12/30/2020 3:48 PM Basal Cell Carc inoma Results for this OUTSIDE MATERIAL CDT Skin Other Parts procedu re are in Face the results section. documented in this encounter Results Pathology Review of Outside Material (12/30/2020 3:48 PM CDT) Component Value Ref Test Analysis Performed At [facility] Range Method Time Signature 12/31/2020 PDR 1:37 PM CDT Participated in Martin Chan 12/31/2020 PDR the Jr, 1:37 PM CDT Interpretation D.O.-Pathology Fellow Report Pennie Conley M.D. 12/31/2020 PDR electronically 1:37 PM CDT signed by I verify that I have examined all relevant slides/materials for the specimen(s) and rendered or confirmed the diagnosis. Material Received A. [id number]: Skin, Right preauricular cheek 12/31/2020 PDRM ? 2 stained slides, 5 unstained slides 1:37 PM CDT Also rec'd 1 slide ([id number]) not for interpretation. Interpretation FINAL DIAGNOSIS 12/31/2020 PDR A. ??Skin, Right preauricular cheek, [id number], 1:37 PM CDT 11/04/2020: Nodular basal cell carcinoma, involving biopsy border Specimen Anatomical Collection Method Collection Time Receive d Time (Source) Location / / Volume Laterality Varies 12/30/2020 3:48 PM 3:48 CDT PM CDT Narrative This result has an attachment that is no t available. Zeke Nobles M.D., M.S. LAB SURG PATH ORDERABLES Performing Organization Address City/State/ZIP Code Phon e Number [facility] - [address] [place], [place] [address] [facility] [place] [address] [facility] [address] documented in this encounter Visit Diagnoses Diagnosis Basal Cell Carcinoma Skin Other Parts Fa ce documented in this encounter
--- OUTSIDE RECORDS SUMMARY | 2022-01-28 14:04 | XMS_ITS | Encounter Summary ---
:1945 Author Organization [facility] Address [address] [place] [address] Care Team Providers Name Role Phone Unavailable Primary Care Provider Unavailable Encounter Details Date Type Department Care Team Description 12/21/2020 Orders Only Department of Zeke Nobles, Encounter For Preprocedural Laboratory Examination (COVID-19) (Primary Dx); Dermatology in [place] Negative COVID-19 Test (Contact With And (Suspected) Exposure To COVID-19) [place], [place] [address] [facility] [address] [place] [phone] Social History Tobacco Use Types Packs/Day Years [...] or relatives? How often do you attend synagogue or More than 4 times per year 09/21/2021 moravian services? Do you belong to any clubs or Not asked organizations such as synagogue groups, unions, fraternal or athletic groups, or [...] place to sleep or slept in a fpc (including now)? Sex Assigned at Date Recorded Female 09/21/2021 10:37 AM CDT documented as of this encounter Plan of Treatment Not on filedocumented as of this encounter Results SARS Coronavirus-2 RNA, V Asymptomatic (01/28/2021 9:56 AM CDT) [facility] Method Time Signature SARS-CoV-2 Swab, 01/28/2021 [place] [...] pe rformed using the Aptima SARS-CoV-2 assay ([employer] on the PlanStans tem under emergency use authorization (EUA) by the U.S. Food and Drug Administ ration. Fact sheets for this EUA assay can be fo und at the following links: For Healthcare Providers: https://www.fd a.gov/media/713616/download For Patients: https://www.fda.gov/media/ 189307/download Specimen Anatomical Collection Method Collection Time Receive d Time (Source) Location / / Volume Laterality Varies 01/28/2021 9:56 AM 3:24 (Nasopharynx) CDT PM CDT Zeke Nobles M.D., M.S. LAB MICROBIOLOGY - GENERAL O RDERABLES Performing Organization Address City/State/ZIP Code Phon e Number [facility]- [address] [place] [address] [facility] [place] [address] documented in this encounter Visit Diagnoses Diagnosis Encounter For Preprocedural Laboratory E xamination (COVID-19) - Primary Negative COVID-19 Test (Contact With And (Suspected) Exposure To COVID-19) documented in this encounter
--- OUTSIDE RECORDS SUMMARY | 2022-01-28 14:04 | XMS_ITS | Encounter Summary ---
:1945 Author Organization [facility] Address [address] [place] [address] Care Team Providers Name Role Phone Unavailable Primary Care Provider Unavailable Reason for Visit Reason Onset Date Comments Test only 01/15/2018 Encounter Details Date Type Department Care Team Description 01/15/2018 Clinical Communication Division of Vascular Ward Flanagan ustavo Test only and Endovascular S, M.D. Surgery in [address] [place] [address] [place], [place] [phone] (Work) [phone] Social History Tobacco Use Types Packs/Day Years [...] or relatives? How often do you attend temple or More than 4 times per year 09/21/2021 mosque services? Do you belong to any clubs or Not asked organizations such as temple groups, unions, fraternal or athletic groups, or [...] AM CDT documented as of this encounter Miscellaneous Notes Telephone Encounter - Telma Arceo - 01/22/2018 12:31 PM CDT Scheduled, called and confirmed Telephone Encounter - Lisette Terrazas R.N. - 01/22/2018 11:37 AM CDT Order sent through Telephone Encounter - Telma Arceo - 01/15/2018 10:16 AM CDT Serafin, The patient called and said that she is wanting to come back and have an ultrasound done that she does every two years. She does not need to see Dr. Flanagan. Can you order that so we can schedule a test only? Please review. Thanks, Pam documented in this encounter Plan of Treatment Not on filedocumented as of this encounter Visit Diagnoses Not on filedocumented in this encounter
--- OUTSIDE RECORDS SUMMARY | 2022-01-28 14:04 | XMS_ITS | Encounter Summary ---
:1945 Author Organization [facility] Address [address] [place] [address] Care Team Providers Name Role Phone Unavailable Primary Care Provider Unavailable Reason for Referral Outpatient (Routine) - Closed Specialty Diagnoses / Procedures Referred By Contact Refer red To Contact Endocrinology Diagnoses Nodule Thyroid Zeynep Keller M.D. [facility] [address] [place] [address] Referral ID Status Reason Start Date Expiration Date Visits Requ ested Visits Authorized [id number] Closed 10/25/2021 10/25/2022 1 1 Encounter Details Date Type Department Care Team Description [facility] Zari Adhikari (Primary Dx) [address] [facility] [address] [place] [address] [place], [place] [phone] Social History Tobacco Use Types Packs/Day Years [...] or relatives? How often do you attend buddhism or More than 4 times per year 09/21/2021 mormon services? Do you belong to any clubs or Not asked organizations such as buddhism groups, unions, fraternal or athletic groups, or [...] place to sleep or slept in a usp (including now)? Education Answer Date Recorded What is the highest level of school Master's degree (e.g., M A, MS, 09/21/2021 you have completed or the highest Cecil, MEd, CREATIVE PRODUCER, ARMANDO) degree you have received? Sex Assigned at Date Recorded Female 09/21/2021 10:37 AM CDT documented as of this encounter Plan of Treatment Scheduled Referrals Name Type Priority Associated Diagnoses Order S [facility] General Surgery Outpatient Referral Routine Nodule Thyroid Exp ected: Referral 10/25/2021 (Approximate), Expires: 01/25/2023 documented as of this encounter Visit Diagnoses Diagnosis Nodule Thyroid - Primary documented in this encounter
--- OUTSIDE RECORDS SUMMARY | 2022-01-28 14:04 | XMS_ITS | Encounter Summary ---
:1945 Author Organization [facility] Address [address] [place] [address] Care Team Providers Name Role Phone Unavailable Primary Care Provider Unavailable Encounter Details Date Type Department Care Team Description 09/23/2021 Ancillary Procedure Department of Dermatology Social History [...] or relatives? How often do you attend spiritism or More than 4 times per year 09/21/2021 presybeterian services? Do you belong to any clubs or Not asked organizations such as spiritism groups, unions, fraternal or athletic groups, or [...] place to sleep or slept in a care home (including now)? Education Answer Date Recorded What is the highest level of school Master's degree (e.g., M A, MS, 09/21/2021 you have completed or the highest Cecil, MEd, WHEEL LACER AND TRUER, ARMANDO) degree you have received? Sex Assigned at Date Recorded Female 09/21/2021 10:37 AM CDT documented as of this encounter Plan of Treatment Not on filedocumented as of this encounter Procedures Procedure Name Priority Date/Time Associated Comments Diagnosis DERMATOLOGY IMAGE Routine 09/23/2021 12:00 Result s for this EXAM AM CDT procedure are i n the results section. documented in this encounter Results Cheeks 511 Dermoscopy-Dermatology Image Exam (09/23/2021 12:00 AM CDT) Specimen (Source) Anatomical Location Collection Method / Collectio n Time Received Time / Laterality Volume Narrative IIMS - 09/23/2021 3:36 PM CDT This order has been created [...]
--- OUTSIDE RECORDS SUMMARY | 2022-01-28 14:04 | XMS_ITS | Encounter Summary ---
:1945 Author Organization [facility] Address [address] [place] [address] Care Team Providers Name Role Phone Unavailable Primary Care Provider Unavailable Encounter Details Date Type Department Care Team Description 12/21/2020 Clinical Communication Department of Zeke Nobles, Dermatology in [place], M.S. [place], [place] [address] [facility] [address] [place] [phone] [phone] Social History Tobacco Use Types Packs/Day Years [...] or relatives? How often do you attend mosque or More than 4 times per year 09/21/2021 mosque services? Do you belong to any clubs or Not asked organizations such as mosque groups, unions, fraternal or athletic groups, or [...] place to sleep or slept in a jail (including now)? Sex Assigned at Date Recorded Female 09/21/2021 10:37 AM CDT documented as of this encounter Miscellaneous Notes Telephone Encounter - Naila Jimenez - 12/21/2020 9:47 AM CDT ----- Message from Zeke Nobles M.D., M.S. sent at 12/17/2020 2:08 PM CDT ----- Regarding: RE: Please advise Good afternoon Naila Outside slides Mohs slot Thank you! 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 B- Patient had a biopsy done on 11/04/20. A- Photos can be found under imaging and pathology can be found under media. R- Please advise on how to move forward with this patients care. Thank you, Naila documented in this encounter Plan of Treatment Not on filedocumented as of this encounter Visit Diagnoses Not on filedocumented in this encounter
--- OUTSIDE RECORDS SUMMARY | 2022-01-28 14:04 | XMS_ITS | Encounter Summary ---
:1945 Author Organization [facility] Address [address] [place] [address] Care Team Providers Name Role Phone Unavailable Primary Care Provider Unavailable Reason for Referral Outpatient (Routine) - Authorized Specialty Diagnoses / Procedures Referred By Contact Refer red To Contact Diagnoses Nodule Thyroid Angelita Gallego M.D. [facility] Procedures US Thyroid US Head Neck Soft Tissue [address] [place], [place] [address] Referral ID Status Reason Start Date Expiration Date Visits V isits Requested Authorized [id number] Authorized 11/10/2021 11/10/2022 1 1 utpatient (Routine) - Closed Specialty Diagnoses / Procedures Referred By Contact Refer red To Contact Diagnoses Nodule Thyroid Angelita Gallego M.D. [facility] Procedures END Thyroid USG [address] [place], [place] [address] Referral ID Status Reason Start Date Expiration Date Visits Requ ested Visits Authorized [id number] Closed 11/10/2021 11/10/2022 1 1 Reason for Visit Outpatient (Routine) - Closed Specialty Diagnoses / Procedures Referred By Contact Refer red To Contact Endocrinology Diagnoses Nodule Thyroid Zeynep Keller M.D. [address] [address] Referral ID Status Reason Start Date Expiration Date Visits Requ ested Visits Authorized [id number] Closed 10/25/2021 10/25/2022 1 1 Encounter Details Date Type Department Care Team Description 11/10/2021 Comprehensive Visit Division of Angelita Gallego Nodule Thyroid Endocrinology in [place], [place] [address] [place] [address] [phone] Social History Tobacco Use Types Packs/Day Years [...] or relatives? How often do you attend episcopalian or More than 4 times per year 09/21/2021 amish services? Do you belong to any clubs or Not asked organizations such as episcopalian groups, unions, fraternal or athletic groups, or [...] minutes do you engage in exercise at is 20 min 09/21/2021 level? Financial Resource [...] place to sleep or slept in a detention (including now)? Education Answer Date Recorded What is the highest level of school Master's degree (e.g., M A, MS, 09/21/2021 you have completed or the highest Cecil, MEd, TANNING DRUM OPERATOR, ARMANDO) degree you have received? Sex [...] Mass Index 33.74 11/10/2021 9:03 AM CDT documented in this encounter Consult Notes Angelita Gallego M.D. - 11/10/2021 9:15 AM CDT SUBJECTIVE Referred by Dr. Zeynep Keller CHIEF COMPLAINT / REASON FOR VISIT Adalgisa Layton is a 76 y.o. female presents for a consult of thyroid nodule. . HISTORY OF PRESENT ILLNESS She is a 76 yof from [place], [place]. She is here with her Padmini today, excellent! 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 She had a Coronaryartery Calcium study done. This led to CT chest and neck that revealed incidental thyroid nodules. O/s u/s 10-25-21: R 1cm solid-observe. R 1.7 cm and R 2.4cm solid and cystic-rec FNA of both of these (can do 2 as 1-ie 3 passes into each one). L 0.4cm thyroid nodule-observe since it is tiny. No h/o head/neck radiation. No FH of thyroid cancer or thyroid disease. She has some difficulty with positioning her neck; with CPAP for GIFTY for past 10 years. O/w no dyspnea. No dysphonia. No dysphagia. 10-12-21: Calcium 9.5 No o/s TSH available. The following portions of the patient's history were reviewed and updated as appropriate: allergies,current medications, family history, medical history, social history, surgical history and problem list. REVIEW OF SYSTEMS Skin: Positive for change in mole or skin spot. ENT: Positive for sinus congestion. Respiratory: Positive for coughing up mucus (phlegm). Cardiovascular: Positive for swelling in the legs or feet. Genitourinary: Positive for frequent urination. Musculoskeletal: Positive for arthralgias and pain or stiffness in the joints. All other systems reviewed and are negative. The following systems were negative: Constitutional, Eyes, GI, Hematologic, Neuro, Psych OBJECTIVE PHYSICAL EXAM Physical Exam Vital Signs: BP (!) 177/78 (BP Location: Right arm) Pulse 65 Ht 161.5 cm Wt 88 kg BMI 33.74 kg/m?? General: Normal mood; well nourished; appears to be in no acute distress. Skin: No xanthomas or xanthelasmas. HEENT: NC/AT, PERRL, normal oropharynx; EOMI. Thyroid: R 1.5 and 2.5cm thyroid nodules easily mobile with swallowing; 50g MNG. Lymph: No cervical or supraclavicular lymphadenopathy. Lungs: Chest clear to auscultation, normal respirations. Heart: Normal rate, regular rhythm, normal heart sounds and no murmur, rub or gallop. Abdomen: Normal bowel sounds; palpation normal, no tenderness and no distension. Extremities: No clubbing, cyanosis or edema. Neuro: Grossly non-focal, upper extremity tremor not present. Spine: No tenderness to palpation or percussion along the spine. Gait: Normal. ASSESSMENT / PLAN #1 Nodule Thyroid Recommend FNA of R 1.7cm and R 2.4cm thyroid nodules (can do 2 as 1; ie 3 passes into each one).. Asked if she wanted to be involved in thyroid nodule research- she declined. If cancer or susp neoplasm, then rec surgery. If benign, then continue with observation and recheck in 3-5 years. Have ordered TSH for here; Ultrasound as well; FNA. If thyroid nodules benign, then she does not have to come back for thyroid u/s in a few weeks from now. I will call her with FNA results. She understands and agrees with this approach. Addendum: TSH 2.9 normal. documented in this encounter Plan of Treatment Scheduled Orders Name Type Priority Associated Diagnoses Order S chedule US Thyroid Imaging RAD - Routine (most Nodule Thyroid Expect ed: 11/10/2021 inpatients and all (Approxim ate), outpatients) Expires: 2022 documented as of this encounter Results S-TSH (Thyroid-Stimulating Hormone - [...] Organization Address City/State/ZIP Code Phon e Number [facility] - [address] [place], [place] [address] [facility] [place] [address] Laboratories-[facility] [address] documented in this encounter Visit Diagnoses Diagnosis Nodule Thyroid documented in this encounter
--- OUTSIDE RECORDS SUMMARY | 2022-01-28 14:04 | XMS_ITS | Encounter Summary ---
:1945 Author Organization [facility] Address [address] [place] [address] Care Team Providers Name Role Phone Unavailable Primary Care Provider Unavailable Encounter Details Date Type Department Care Team Description 12/21/2020 Clinical Communication Department of Jose A Lucero, Dermatology in .[place], [place] [address] [facility] [address] [place] [phone] Social History Tobacco Use Types Packs/Day Years [...] or relatives? How often do you attend confucianist or More than 4 times per year 09/21/2021 sikh services? Do you belong to any clubs or Not asked organizations such as confucianist groups, unions, fraternal or athletic groups, or [...]
--- OUTSIDE RECORDS SUMMARY | 2022-01-28 14:04 | XMS_ITS | Encounter Summary ---
:1945 Author Organization [facility] Address [address] [place] [address] Care Team Providers Name Role Phone Unavailable Primary Care Provider Unavailable Reason for Referral Outpatient (Routine) - Closed Specialty Diagnoses / Procedures Referred By Contact Refer red To Contact Dermatology Diagnoses Basal Cell Carcinoma Skin Other Parts Face Zeke Nobles M.D., [facility] Procedures [facility] 1-4 sites M.S. [address] [place] [address] Referral ID Status Reason Start Date Expiration Date Visits Requ ested Visits Authorized [id number] Closed 12/17/2020 12/17/2021 1 1 Encounter Details Date Type Department Care Team Description 12/17/2020 Orders Only Department of Zeke Nobles, Basal Cell Carcinoma Skin Other Parts Face (Primary Dx); Dermatology in [place], [place].S. Preprocedural Lab Exam; [place], [place] [address] [facility] Contact With And (Suspected) Exposure To COVID-[address] [place] [phone] Social History Tobacco Use Types Packs/Day Years [...] or relatives? How often do you attend sabianism or More than 4 times per year 09/21/2021 evangelical services? Do you belong to any clubs or Not asked organizations such as sabianism groups, unions, [employer] or athletic groups, or school groups? How [...] on filedocumented as of this encounter Results [facility] 1-4 sites (02/02/2021 10:30 AM CDT) Narrative Jose A Lucero M.D. - 02/02/2021 10:30 AM CDT China Oconnor M.D. ? 02/02/2021 ??3:34 PM PREOP INDICATION: REMOVAL. Date of Surgery: 02/02/2021 Surgeon: Dr. Jose A Lucero Jawbone Puller: Dr. Harpreet Adam and Dr. China Oconnor Location: [facility] ?? dg:GO ?? Floor: 16 ?? Room:DERMHI Visit Type: Outpatient PostOp Diagnosis: ??Nodular basal cell c arcinoma Anatomic Location: ??Right preauricular cheek Preoperative size: ??0.3 x 0.4 cm [facility] number: 12 Indication(s) for Mohs Micrographic Surg [...] loss: Minimal. ?? Complications: None. ??Wound care: Routi ne. Postoperative medications: ??None Zeke Nobles M.D., M.S. DERM PROCEDURE ORDERABLES Pathology Review of Outside Material (12/30/2020 3:48 PM CDT) Component Value Ref Test Analysis Performed At [facility] Time Signature 12/31/2020 [facility] 1:37 PM CDT Participated in Martin Chan 12/31/2020 [facility] the , 1:37 PM CDT Interpretation D.OSiobhan-Pathology Fellow Report Pennie Conley M.D. 12/31/2020 [facility] electronically 1:37 PM CDT signed by I verify that I have examined all relevant slides/materials for the specimen(s) and rendered or confirmed the diagnosis. Material Received A. [id number]: Skin, Right preauricular cheek 12/31/2020 PDRM ? 2 stained slides, 5 unstained slides 1:37 PM CDT Also rec'd 1 slide ([id number]) not for interpretation. Interpretation FINAL DIAGNOSIS 12/31/2020 PDRM A. ??Skin, Right preauricular cheek, [id number], 1:37 PM CDT 11/04/2020: Nodular basal cell carcinoma, involving biopsy border Specimen Anatomical Collection Method Collection Time Receive d Time (Source) Location / / Volume Laterality Varies 12/30/2020 3:48 PM 3:48 CDT PM CDT Narrative This result has an attachment that is no t available. Zeke Nobles M.D., M.S. LAB SURG PATH ORDERABLES Performing Organization Address City/State/ZIP Code Phon e Number [facility] - [address] [place], [place] [address] [facility] [place] [address] Laboratories-[facility] [address] documented in this encounter Visit Diagnoses Diagnosis Basal Cell Carcinoma Skin Other Parts Fa ce - Primary Preprocedural Lab Exam Contact With And (Suspected) Exposure To COVID-19 Basal Cell Carcinoma Skin Other Parts Fa ce documented in this encounter
--- OUTSIDE RECORDS SUMMARY | 2022-01-28 14:04 | XMS_ITS | Encounter Summary ---
:1945 Author Organization [facility] Address [address] [place] [address] Care Team Providers Name Role Phone Unavailable [...] More than 4 times per year 09/21/2021 samaritan services? Do you belong to any clubs [...] or slept in a residential (including now)? Sex Assigned at Date Recorded Female 09/21/2021 10:37 AM CDT documented as of this encounter Plan of Treatment Not on filedocumented as of this encounter Procedures Procedure Name Priority Date/Time Associated Comments Diagnosis DERMATOLOGY IMAGE Routine 02/02/2021 12:05 Result s for this EXAM AM CDT procedure are i n the results section. documented in this encounter Results cheek, right preauricular 12 Mohs micrographic surgery-Dermatology Image Exam (02/02/2021 12:05 AM CDT) Specimen (Source) Anatomical Location Collection [...]
--- OUTSIDE RECORDS SUMMARY | 2022-01-28 14:04 | XMS_ITS | Encounter Summary ---
:1945 Author Organization [facility] Address [address] [place] [address] Care Team Providers Name Role Phone Unavailable [...] or relatives? How often do you attend sabianist or More than 4 times per year 09/21/2021 pentecostalism services? Do you belong to any clubs or Not asked organizations such as sabianist groups, unions, fraternal or athletic groups, or [...] place to sleep or slept in a long term (including now)? Sex Assigned at Date Recorded Female 09/21/2021 10:37 AM CDT documented as of this encounter Plan of Treatment Not on filedocumented as of this encounter Procedures Procedure Name Priority Date/Time Associated Comments Diagnosis DERMATOLOGY IMAGE Routine 02/02/2021 12:10 Result s for this EXAM AM CDT procedure are i n the results section. documented in this encounter Results cheek, right preauricular 12 Mohs micrographic surgery-Dermatology Image Exam (02/02/2021 12:10 AM CDT) Specimen (Source) Anatomical Location Collection [...]
--- OUTSIDE RECORDS SUMMARY | 2022-01-28 14:04 | XMS_ITS | Encounter Summary ---
:1945 Author Organization [facility] Address [address] [place] [address] Care Team Providers Name Role Phone Unavailable Primary Care Provider Unavailable Encounter Details Date Type Department Care Team Description 01/22/2018 Orders Only Division of Vascular and Lisette Terrazas, Aneurysm Splenic Endovascular Surgery in [place].N. Artery (HCC) (Primary [place], [place] [address] [facility] D[facility]) [address] [place] [address] [phone] Social History Tobacco Use Types Packs/Day Years [...] or relatives? How often do you attend rastafarian or More than 4 times per year 09/21/2021 adventist services? Do you belong to any clubs or Not asked organizations such as rastafarian groups, unions, fraternal or athletic groups, or [...] place to sleep or slept in a senior care (including now)? Sex Assigned at Date Recorded Female 09/21/2021 10:37 AM CDT documented as of this encounter Plan of Treatment Not on filedocumented as of this encounter Visit Diagnoses Diagnosis Aneurysm Splenic Artery (HCC) - Primary documented in this encounter
--- OUTSIDE RECORDS SUMMARY | 2022-01-28 14:04 | XMS_ITS | Encounter Summary ---
:[address] [facility] Address [address] [place] [address] Care Team Providers Name Role Phone Unavailable Primary Care Provider Unavailable Encounter Details Date Type Department Care Team Description 02/01/2021 Orders Only Department of Vascular LangAleman P.A.-C. Medicine in [place], [facility] [address] [place], [place] [address] [facility] [phone] [place] [address] [phone] Social History Tobacco Use Types Packs/Day Years [...] or relatives? How often do you attend restorationist or More than 4 times per year 09/21/2021 jainism services? Do you belong to any clubs or Not asked organizations such as restorationist groups, unions, fraternal or athletic groups, or [...]
--- OUTSIDE RECORDS SUMMARY | 2022-01-28 14:04 | XMS_ITS | Encounter Summary ---
:1945 Author Organization [facility] Address [address] [place] [address] Care Team Providers Name Role Phone Unavailable [...] or relatives? How often do you attend mormonism or More than 4 times per year 09/21/2021 yarsani services? Do you belong to any clubs or Not asked organizations such as mormonism groups, unions, fraternal or athletic groups, or [...] place to sleep or slept in a prison (including now)? Education Answer Date Recorded What is the highest level of school Master's degree (e.g., M A, MS, 09/21/2021 you have completed or the highest Cecil, MEd, TERRITORY SALES MANAGER, ARMANDO) degree you have received? Sex Assigned at Date Recorded Female 09/21/2021 10:37 AM CDT documented as of this encounter Plan of Treatment Not on filedocumented as of this encounter Procedures Procedure Name Priority Date/Time Associated Comments Diagnosis DERMATOLOGY IMAGE Routine 09/23/2021 12:05 Result s for this EXAM AM CDT procedure are i n the results section. documented in this encounter Results Back [id number] Dermoscopy-Dermatology Image Exam (09/23/2021 12:05 AM CDT) Specimen (Source) Anatomical Location [...]
--- OUTSIDE RECORDS SUMMARY | 2022-01-28 14:04 | XMS_ITS | Encounter Summary ---
:1945 Author Organization [facility] Address [address] [place] [address] Care Team Providers Name Role Phone Unavailable [...] More than 4 times per year 09/21/2021 anabaptism services? Do you belong to any clubs [...] place to sleep or slept in a group home (including now)? Sex Assigned at Date Recorded Female 09/21/2021 10:37 AM CDT documented as of this encounter Plan of Treatment Not on filedocumented as of this encounter Procedures Procedure Name Priority Date/Time Associated Comments Diagnosis DERMATOLOGY IMAGE Routine 02/02/2021 12:00 Result s for this EXAM AM CDT procedure are i n the results section. documented in this encounter Results cheek, right preauricular 12 Mohs micrographic surgery-Dermatology Image Exam (02/02/2021 12:00 AM CDT) Specimen (Source) Anatomical Location [...]
--- OUTSIDE RECORDS SUMMARY | 2022-01-28 14:04 | XMS_ITS | Encounter Summary ---
:1945 Author Organization [facility] Address [address] [place] [id number] Care Team Providers Name Role Phone Unavailable Primary Care Provider Unavailable Encounter Details Date Type Department Care Team Description 10/14/2020 Ancillary Procedure Department of Dermatology Social History [...] or relatives? How often do you attend cheondoism or More than 4 times per year 09/21/2021 pentecostalism services? Do you belong to any clubs or Not asked organizations such as cheondoism groups, unions, fraternal or athletic groups, or [...] Date/Time Associated Comments Diagnosis DERMATOLOGY IMAGE Routine 10/14/2020 12:00 Result s for this EXAM AM CDT procedure are i n the results section. documented in this encounter Results Face 507-Dermatology Image Exam (10/14/2020 12:00 AM CDT) Specimen (Source) Anatomical Location Collection Method / Collectio n Time Received Time / Laterality Volume Narrative IIMS - 12/10/2020 9:48 AM CDT This order has been created and [...]
--- OUTSIDE RECORDS SUMMARY | 2022-01-28 14:04 | XMS_ITS | Encounter Summary ---
:1945 Author Organization [facility] Address [address] [place] [id number] Care Team Providers Name Role Phone Unavailable Primary Care Provider Unavailable Encounter Details Date Type Department Care Team Description 12/16/2020 Ancillary Procedure Department of Dermatology Social History [...] or relatives? How often do you attend scientology or More than 4 times per year 09/21/2021 sikh services? Do you belong to any clubs or Not asked organizations such as scientology groups, unions, fraternal or athletic groups, or [...] Date/Time Associated Comments Diagnosis DERMATOLOGY IMAGE Routine 12/16/2020 12:00 Result s for this EXAM AM CDT procedure are i n the results section. documented in this encounter Results Ears 506-Dermatology Image Exam (12/16/2020 12:00 AM CDT) Specimen (Source) Anatomical Location Collection Method / Collectio n Time Received Time / Laterality Volume Narrative IIMS - 12/16/2020 10:48 AM CDT This order has been created [...]
--- OUTSIDE RECORDS SUMMARY | 2022-01-28 14:04 | XMS_ITS | Encounter Summary ---
:1945 Author Organization [facility] Address [address] [place] [address] Care Team Providers Name Role Phone Unavailable Primary Care Provider Unavailable Reason for Referral Outpatient (Routine) - Authorized Specialty Diagnoses / Procedures Referred By Contact Refer red To Contact Vascular Medicine Yas Perez P.A. -C. [facility] [address] [place] [phone] Referral ID Status Reason Start Date Expiration Date Visits V isits Requested Authorized [id number] Authorized 02/02/2021 02/02/2022 1 1 Outpatient (Routine) - Authorized Specialty Diagnoses / Procedures Referred By Contact Refer red To Contact Diagnoses Aneurysm Splenic Artery (HCC) Yas Perez P.A.-C. [facility] Procedures US Abdomen Pelvis Vessels Limited Doppler [address] [place] [phone] Referral ID Status Reason Start Date Expiration Date Visits V isits Requested Authorized [id number] Authorized 02/02/2021 02/02/2022 1 1 Reason for Visit Outpatient (Routine) - Closed Specialty Diagnoses / Procedures Referred By Contact Refer red To Contact Vascular Medicine Diagnoses Aneurysm Splenic Artery (HCC) Dm Moyer [facility] Zari [address] [place] [phone] Referral ID Status Reason Start Date Expiration Date Visits Requ ested Visits Authorized [id number] Closed 12/15/2020 12/15/2021 1 1 Encounter Details Date Type Department Care Team Description 02/02/2021 Comprehensive Visit Department of Yas Perez Splenic Artery (HCC) (Primary Dx); Vascular Medicine R, P.A.-C. Hypertension Essential Primary; in [place] [address] [facility] Hyperlipidemia On Treatment [place], [place] 200 [facility] [phone] [place], [place] [phone] (Work) [phone] Social History Tobacco Use Types Packs/Day Years [...] or relatives? How often do you attend yarsani or More than 4 times per year 09/21/2021 spiritism services? Do you belong to any clubs or Not asked organizations such as yarsani groups, unions, fraternal or athletic groups, or [...] to sleep or slept in a senior living (including now)? Sex Assigned at Date Recorded Female 09/21/2021 10:37 AM CDT documented as of this encounter Last Filed Vital Signs Vital Sign Reading Time Taken Comments Blood Pressure 146/77 02/02/2021 2:38 PM CDT Pulse 70 02/02/2021 2:38 PM CDT Temperature - - Respiratory Rate - - Oxygen Saturation - - Inhaled Oxygen Concentration - - Weight 89.3 kg (196 lb 13.9 oz) 02/02/2021 2:36 PM CDT Height 165.6 cm (5' 5.2) 02/02/2021 2:36 PM CDT Body Mass Index 32.56 02/02/2021 2:36 PM CDT documented in this encounter Progress Notes Yas Perez P.A.-C. - 02/02/2021 3:00 PM CDT REFERRAL SOURCE Dm Moyer M.D. [address] [place] [phone] SUBJECTIVE CHIEF COMPLAINT / REASON FOR VISIT Surveillance of splenic artery aneurysm HISTORY OF PRESENT ILLNESS Ms. Layton is a 75 y.o. female that I am seeing today for surveillance of splenic artery aneurysm. She came to the [facility] vascular Center initially in 2009 after findings of a splenic artery aneurysm on a CT scan that had been done for abdominal pain with a question of appendicitis. Please see the consult note of Dr. Kennedy and Dr. Flanagan dated July 06, 2009 for full details. On ultrasound the aneurysm measured 1.2 cm at that time, and the size for repair would be approximately 2.5 cm. She has returned for surveillance periodically since that time, most recently every other year, though she did not come last year because of COVID. Today she has come with a bandage on the right shinto from a basal cell carcinoma that was just removed. She has had a previous basal cell carcinoma on the other side of her face. She has no other medical complaints at this time including no history of heart attack, stroke, TIA, and no complaints of chest pain or shortness of breath. She exercises regularly, 20 minutes on the treadmill and 20 minuteson an exercise bicycle daily. She does not smoke. She is treated for hypertension and hyperlipidemia, but she does not have diabetes. She denies any pain at this time. Labs were reviewed and she has a normal complete blood count, electrolytes, and creatinine. Ultrasound from today showed a stable peripherally calcified 1.3 cm splenic artery aneurysm located near the splenic hilum. The aneurysm remains patent with flow present. She has a normal size spleen with the length of 12.1 cm. She was happy to hear that the aneurysm is stable. The following portions of the patient's history were reviewed and updated as appropriate: allergies,current medications, family history, medical history, social history, surgical history, psychiatric history, substance abuse history, problem list, labs, diagnostics tests. I reviewed the pertinent clinical notes in the electronic health record. REVIEW OF SYSTEMS 14 systems reviewed. Pertinent positives and pertinent negatives are documented in the history of present illness. OBJECTIVE VITALS BP 146/77 (BP Location: Right arm, Patient Position: Sitting, Cuff Size: Regular) Pulse 70 Ht 165.6 cm Wt 89.3 kg BMI 32.56 kg/m?? BP left arm seated 151/77, pulse 69. PHYSICAL EXAMINATION Body mass index is 32.56 kg/m??. General: Patient is a 75 y.o. female, neatly dressed, seated and in no acute distress. Head: Atraumatic and normocephalic with the exception of a bandage over the right shinto. Eyes: No injection and no drainage seen. ENT: Mucosa not observed due to face mask. Neck: Neck appears supple. Skin: Warm and dry with good turgor. No ulcers, wounds, excoriation or rashes seen on visible skin. Extremities: No edema noted bilaterally. Gait: Normal gait with no gait aids needed. Mental: Alert and oriented with normal affect. DIAGNOSTIC REVIEW All labs and diagnostic studies were reviewed. ASSESSMENT / PLAN #1 Aneurysm Splenic Artery (HCC) #2 Hypertension Essential Primary #3 Hyperlipidemia On Treatment Ms. Layton has returned to the vascular Center for surveillance of her known splenic artery aneurysm. It is stable at 1.3 cm. She was happy to hear this. Because it has been stable for so many years, we will continue with every other year surveillance. We talked about risk factors for vascular disease including coronary artery disease, stroke or TIA. She is under treatment for hypertension and her blood pressure is usually well controlled at home though it is a little higher today after her procedure that was just completed a little while ago to remove basal cell carcinoma. She remains on medication, atorvastatin for hyperlipidemia. She also takes low-dose aspirin daily. She does not smoke and she exercises regularly. She does not have diabetes. She was encouraged to continue with her healthy lifestyle habits, and we will repeat surveillance ultrasound in 2 years. It was a pleasure meeting her today. Total time spent with patient: 25 minutes. Time spent in counselin minutes. Corina Perez P.A.-C. documented in this encounter Plan of Treatment Scheduled Orders Name Type Priority Associated Diagnoses Order S [facility] Lipid Panel Lab Routine Hyperlipidemia On Expected: Treatment 02/02/2023 (Approximate), Expires: 02/03/2024 CBC without Lab Routine Hypertension Essential Expec kinsey: Differential Primary 02/02/2023 (Approximate), Expires: 02/03/2024 Creatinine with Lab Routine Hypertension Essential Ex pected: Estimated GFR Primary 02/02/2023 (Approximate), Expires: 02/03/2024 US Abdomen Pelvis Imaging RAD - Routine Aneurysm Splenic Expec kinsey: Vessels Limited (most inpatients Artery (HCC) 02/03/20 23 Doppler and all (Approximate), outpatients) Expires: 02/03/2024 Scheduled Referrals Name Type Priority Associated Diagnoses Order S [facility] Vascular Medicine Outpatient Referral Routine Exp ected: office visit 02/02/2023 (clinic) (Approximate), Expires: 02/03/2024 documented as of this encounter Visit Diagnoses Diagnosis Aneurysm Splenic Artery (HCC) - Primary Hypertension Essential Primary Hyperlipidemia On Treatment documented in this encounter
--- OUTSIDE RECORDS SUMMARY | 2022-01-28 14:04 | XMS_ITS | Encounter Summary ---
:1945 Author Organization [facility] Address [address] [place] [address] Care Team Providers Name Role Phone Unavailable Primary Care Provider Unavailable Reason for Visit Appointment Request (Routine) - Closed Specialty Diagnoses / Procedures Referred By Contact Refer red To Contact Dermatology Referral ID Status Reason Start Date Expiration Date Visits Requ ested Visits Authorized [id number] Closed 09/13/2021 09/13/2022 1 1 Encounter Details Date Type Department Care Team Description 09/23/2021 Office Visit Department of Ryann Russell A ctinic (Primary Dx); Dermatology in R, PSiobhanA.-C., M.S. Dermatoheliosis; [place], [place] [address] [facility] Keratosis Seborrheic; [address] [place], [place] Angioma Muñiz; [place] [address] Nevi Multiple; [phone] Screening Examination Skin C ancer; [place]; [phone] Tumor Skin Unce rtain Behavior (Fax) Social History Tobacco Use Types Packs/Day Years [...] or relatives? How often do you attend jew or More than 4 times per year 09/21/2021 jewish services? Do you belong to any clubs or Not asked organizations such as jew groups, unions, fraternal or athletic groups, or [...] place to sleep or slept in a [facility] (including now)? Education Answer Date Recorded What is the highest level of school Master's degree (e.g., M A, MS, 09/21/2021 you have completed or the highest Cecil, MEd, [employer]) degree you have received? Sex Assigned at Date Recorded Female 09/21/2021 10:37 AM CDT documented as of this encounter Consult Notes Ryann Russell P.A.-C., M.S. - 09/23/2021 11:20 AM CDT REFERRED BY No ref. provider found Supervised by: Dr. Stephani Arias ([phone]) Supervising python consultant, Dr. Stephani Arias, was immediately available but consultation was not required. CHIEF COMPLAINT/REASON FOR VISIT History of nonmelanoma skin cancer HISTORY OF PRESENT ILLNESS Ms. Adalgisa Layton is a pleasant 76 y.o. female who presents for a full skin cancer screening examination. The patient has a history of basal cell carcinoma of the left cheek, treated at an outside facility in 2018, as well as basal cell carcinoma of the right preauricular cheek treated with Mohs micrographic surgery in 2020. Today, the patient notes rough spots on her left cheek, left breast, and right labia majora. She denies any pain, itching, or bleeding from the sites. No other cutaneous concerns. She reports that she tries to be diligent with photoprotection. Allergies Allergen Reactions ??? Doxycycline Other (see comments) numbness ??? Iodinated Contrast Media Shortness of breath Sneezing and congestion in 200. Pt. States no history of allergy to topical betadine. ??? Morphine Other (see comments) ??? Nickel Itching and Rash PAST DERMATOLOGIC HISTORY 1. Nodular basal cell carcinoma, right preauricular cheek, s/p Mohs 2020 2. Basal cell carcinoma, left cheek, diagnosed and treated at an outside facility, 2018 PHYSICAL EXAM General: Awake, alert, in no acute distress, and with appropriate affect. Eyes: No scleral injection or icterus. No eyelid abnormalities. Lymph: No lower extremity edema. Skin: I have examined the scalp, face, neck, chest, abdomen, back, buttock, bilateral upper extremities, and bilateral lower extremities. Genital exam declined. Carbajal skin type II. Mild dermatoheliosis. Involving the right jawline is a 0.3 x 0.2 cm dark blue macule with irregular boarders. Involving the midline thoracic back is a 0.3 x 0.3 cm medrano papule with a broken reticular network. Involving the left preauricular cheek is a pink macule with rough, adherent scale, consistent with actinic keratosis. On the trunk and extremities are red, dome-shaped papules consistent with muñiz angiomas. Scattered on the trunk are many pink to brown waxy, stuck on appearing papules, consistent with seborrheic keratoses. On sun exposed areas are scattered light brown macules. On the back, trunk, and extremities are multiple skin colored to dark brown macules and papules with reassuring features on dermoscopy, consistent with benign nevi. IMPRESSION/REPORT/PLAN #1 Skin cancer screening examination #2 Dermatoheliosis #3 History of nonmelanoma skin cancer Sun protection and sun avoidance were reviewed with the patient. Educational materials were providedregarding skin self-examination, the warning signs and symptoms of skin cancer, and the proper use of sunscreens. I would recommend a full skin cancer screening examination with an appropriately trained clinician every year. #4 Actinic keratosis The patient's lesion of concern involving the left cheek is consistent with an actinic keratosis CONSENT Discussed the risks, benefits, alternatives, and the necessity of other members of the healthcare team participating in the procedure. All questions answered and consent given. PROCEDURE INFORMATION Given the precancerous nature of this lesion(s), treatment is medically indicated. After discussion of the risks, benefits and alternatives to treatment with cryotherapy, informed consent was obtained.We treated a total of 1 lesion(s) with two 20-second freeze-thaw cycles of liquid nitrogen cryotherapy. The patient tolerated the procedure well. Aftercare instructions were provided in written and verbal form to the patient. Should any of these lesions recur, the patient should return for biopsy or further evaluation. #5 Tumor skin uncertain behavior, right jawline, nevus versus atypical nevus #6 Tumor skin uncertain behavior, midline thoracic back, nevus versus atypical nevus CONSENT Discussed the risks, benefits, alternatives, and the necessity of other members of the healthcare team participating in the procedure. All questions answered and consent given. UNIVERSAL PROTOCOL Procedural pause conducted to verify: correct patient identity, procedure to be performed, and as applicable, correct side and site, correct patient position, and availability of implants, special equipment, or special requirements. PROCEDURE INFORMATION Punch biopsy x2 We explained the potential diagnosis and recommended that we obtain a biopsy. The risks and benefitsof the procedure were discussed, and the patient consented to these procedures. Using 1% lidocaine with epinephrine for local anesthesia, a 4-mm punch biopsy was obtained from the right jawline and a five-mm punch biopsy was obtained from the midline thoracic back. Biopsy submitted to Dermatopathology. Biopsy site on the right jawline closed with a top layer of 6- 0 Ethilon, in the biopsy site involving the midline thoracic back was closed with a top layer of 4-0 Ethilon. The skin sutures on the right jawline need to be removed in 5-7 days, sutures on the midline thoracic back need to be removed in 10-14 days. Dressing was applied, and wound care instructions were explained. Biopsy results and any further recommendations will be communicated to the patient by letter. Patient given pamphlet [id number]. #7 Muñiz Angiomas #8 Seborrheic Keratoses #9 Solar Lentigines The patient's lesions of concern involving the left breast and right labia majora are consistent with actinic keratoses. The benign nature of the skin lesion(s) was discussed with the patient. No treatment is required. I recommend continued observation. Should symptoms or changes develop related to this condition, I would recommend a return visit for reassessment. #10 Multiple Nevi The ABCDE criteria for melanoma was reviewed with the patient. I recommend continued sun protection,self-skin examinations, and observation. Should any of the patient's nevi change in size, color, texture, or shape or develop symptoms such as itching or bleeding, I recommend an immediate return visitfor reassessment. PATIENT EDUCATION Ready to learn. No apparent learning barriers were identified. Learning preferences include listening. Explained diagnosis and treatment plan; patient/guardian of patient expressed understanding of thecontent. documented in this encounter Plan of Treatment Not on filedocumented as of this encounter Procedures Procedure Name Priority Date/Time Associated Diagnosis Comme [facility] DERMATOPATHOLOGY Routine 09/23/2021 10:45 AM Resu lts for this CDT procedure are i n the results section. documented in this encounter Results Dermatopathology (09/23/2021 10:45 AM CDT) Component Value Ref Test Analysis Performed Pathologis t Range Method Time At Signature 09/29/2021 [facility] 9:46 AM CDT Report Veronica Carroll 09/29/2021 [facility] electronically Zari Dubose 9:46 AM CDT signed by Juany Description A: ?? Received in formalin labeled with patient's name, 09/29/2021 [facility] medical record number and right jawline is a 0.4 cm in 9:46 AM CDT diameter pale medrano skin punch biopsy excised to a depth of 0.1 cm. ??There is a 0.3 x 0.2 cm medrano lesion with ill-defined borders eccentrically located on the skin surface. ??The specimen is bisected and submitted entirely in cassette A1. ??Grossed by DC. B: ?? Received in formalin labeled with patient's name, medical record number and midline thoracic back is a 0.5 cm in diameter pale medrano skin punch biopsy excised to a depth of 0.2 cm. ??There is a 0.4 x 0.3 cm pale medrano-brown lesion with ill-defined borders centrally located the skin surface. ??The specimen is bisected and submitted entirely in cassette B1. ??Grossed by DC. Interpretation FINAL DIAGNOSIS 09/29/2021 [facility] A. ??Right jawline, Skin punch biopsy: ??Pigmented irritated 9:46 AM CDT seborrheic keratosis and focal scar on background of solar elastosis COMMENT Clinical photos and clinical note were reviewed. B. ??Midline thoracic back, Skin punch biopsy: ??Lentiginous compound nevus, involving peripheral biopsy border COMMENT Clinical photos and clinical note were reviewed. Specimen (Source) Anatomical Collection Method Collection Time Re ceived Time Location / / Volume Laterality Skin (Right 09/23/2021 10:45 jawline) AM CDT Skin (Midline 09/23/2021 10:45 thoracic back) AM CDT Narrative This result has an attachment that is no t available. Ryann Russell P.A.-C., M.S. LAB PATH DERM ORDERABLE S Performing Organization Address City/State/ZIP Code Phon e Number [facility] - [address] [place], [place] [address] [place] [address] [facility] [address] documented in this encounter Visit Diagnoses Diagnosis Keratosis Actinic - Primary Dermatoheliosis Keratosis Seborrheic Angioma Muñiz Nevi Multiple Screening Examination Skin Cancer Lentigo Tumor Skin Uncertain Behavior documented in this encounter
--- OUTSIDE RECORDS SUMMARY | 2022-01-28 14:04 | XMS_ITS | Encounter Summary ---
:1945 Author Organization [facility] Address [address] [place] [address] Care Team Providers Name Role Phone Unavailable Primary Care Provider Unavailable Reason for Referral Outpatient (Routine) - Closed Specialty Diagnoses / Procedures Referred By Contact Refer red To Contact Vascular Medicine Diagnoses Aneurysm Splenic Artery (HCC) Dm Moyer [place] M.D. [address] [place] [phone] Referral ID Status Reason Start Date Expiration Date Visits Requ ested Visits Authorized [id number] Closed 12/15/2020 12/15/2021 1 1 Reason for Visit Reason Comments Appointment Encounter Details Date Type Department Care Team Description 12/08/2020 Clinical Communication Division of Vascular Ward Flanagan Appointment and Endovascular S, MSiobhanDSiobhan Surgery in [place] [address] [address] [place] [address] [place], [place] [phone] (Work) [phone] Social History Tobacco Use Types Packs/Day Years [...] or relatives? How often do you attend moravian or More than 4 times per year 09/21/2021 mormon services? Do you belong to any clubs or Not asked organizations such as moravian groups, unions, fraternal or athletic groups, or [...] or slept in a snf (including now)? Sex Assigned at Date Recorded Female 09/21/2021 10:37 AM CDT documented as of this encounter Miscellaneous Notes Addendum Note - Monty Cotter R.N. - 12/15/2020 12:56 PM CDT Addended by: MONTY COTTER on: 12/15/2020 12:56 PM Modules accepted: Orders Telephone Encounter - Monty Cotter R.N. - 12/15/2020 12:56 PM CDT Orders are in Telephone Encounter - Monty Cotter R.N. - 12/09/2020 8:49 AM CDT She can do VSR Telephone Encounter - Shayla Rabago - 12/08/2020 4:44 PM CDT Franki Salvador, Patient is a former patient of Dr. Gann and was seen last in 2016. She did do a US though here in 2018. She is wanting to come back to be seen with a US per advisement of her local provider. Can you advise if this should be with another Vascular surgeon or as a surveillance consult with a PA? I wasn't sure if it should be triage since she has had a US done that Dr. Flanagan had placed for 2018. Please [address] orders needed and advise if this should be be triaged again since it has been a awhile. Thanks PASS: Please call for scheduling per Madeleine's instructions. documented in this encounter Plan of Treatment Scheduled Referrals Name Type Priority Associated Order Schedule Diagnoses Vascular Medicine - Outpatient Referral Routine Aneurysm Splen ic Expected: Vascular surveillance Artery (HCC) 2021 consult (clinic) (Approximat e), Expires: 12/16/2023 documented as of this encounter Results AST (Aspartate Aminotransferase) (02/02/2021 [...] Organization Address City/State/ZIP Code Phon e Number [facility] - [address] [place] [phone] [facility] [place] [address] [facility] [address] [facility] (ABNORMAL) Basic Metabolic Panel (02/02/2021 7:49 [...] 02/02/2021 DTL Black/ mL/min/BSA 9:18 AM CDT Portuguese Comment: ----ADDITIONAL INFORMATION---- Estimated GFR calculated using [...] Organization Address City/State/ZIP Code Phon e Number [facility] - [address] [place] [address] [facility] [place] [address] [facility] 200 [facility] CBC with Differential, Blood (02/02/2021 7:49 [...] Organization Address City/State/ZIP Code Phon e Number [facility] - [address] [place], [place] [address] [facility] [place] [address] [facility] [address] documented in this encounter Visit Diagnoses Diagnosis Aneurysm Splenic Artery (HCC) - Primary documented in this encounter
--- OUTSIDE RECORDS SUMMARY | 2022-01-28 14:04 | XMS_ITS | Encounter Summary ---
:1945 Author Organization [facility] Address [address] [place] [address] Care Team Providers Name Role Phone Unavailable [...] or relatives? How often do you attend pentecostalism or More than 4 times per year 09/21/2021 cheondoism services? Do you belong to any clubs or Not asked organizations such as pentecostalism groups, unions, fraternal or athletic groups, or [...] place to sleep or slept in a retirement (including now)? Sex Assigned at Date Recorded Female 09/21/2021 10:37 AM CDT documented as of this encounter Plan of Treatment Not on filedocumented as of this encounter Procedures Procedure Name Priority Date/Time Associated Comments Diagnosis DERMATOLOGY IMAGE Routine 10/14/2020 12:05 Result s for this EXAM AM CDT procedure are i n the results section. documented in this encounter Results Unspecified-Dermatology Image Exam (10/14/2020 12:05 AM CDT) Specimen (Source) Anatomical Location Collection Method / Collectio n Time Received Time / Laterality Volume Narrative IIMS - 12/10/2020 9:55 AM CDT This order has been created [...]
--- OUTSIDE RECORDS SUMMARY | 2022-01-28 14:04 | XMS_ITS | Encounter Summary ---
:1945 Author Organization [facility] Address [address] [place] [address] Care Team Providers Name Role Phone Unavailable Primary Care Provider Unavailable Encounter Details Date Type Department Care Team Description 04/20/2012 Historical Ophthalmology RST OPH Hong Robin M.D . Social History Tobacco Use Types Packs/Day Years [...] or relatives? How often do you attend christianity or More than 4 times per year 09/21/2021 presybeterian services? Do you belong to any clubs or Not asked organizations such as christianity groups, unions, fraternal or athletic groups, or [...] or slept in a prison (including now)? Sex Assigned at Date Recorded Female 09/21/2021 10:37 AM CDT documented as of this encounter Progress Notes Hong Robin M.D. - 04/20/2012 11:43 AM CST Eye General CHIEF COMPLAINT blurred vision both eyes HISTORY OF PRESENT ILLNESS Blurred vision; both eyes; distance; x several years; worse from last year. Having difficulty with night driving because of decreased vision and halos around lights. Reading vision seems alright. IMPRESSION / REPORT / PLAN #1 Cataracts both eyes - mild myopic shift Plan: Change glasses #2 Non-exudative AMD - mild, L>R Plan: multivits, fish oil DIAGNOSIS #1 Cataracts both eyes - mild #2 Non-exudative AMD - mild, L>R CDM Reports - EYEGEN Id: [id number] Status: Fnl documented in this encounter Plan of Treatment Not on filedocumented as of this encounter Visit Diagnoses Not on filedocumented in this encounter Additional Health Concerns Infection Onset Date Last Indicated Resolved Time COVID19 Pending 01/28/2021 01/28/2021 01/28/2021 11:52 PM CDT documented as of this encounter
--- NOTE | 2022-01-28 14:30 | CRLHL7_ITS ---
For Patients: As a result of the Century Cures Act, medical imaging exams and procedure reports are released immediately into your electronic medical record. You may view this report before your referring provider. If you have questions, please contact your health care provider. INDICATION: Dizziness. Balance issues. TECHNIQUE: Noncontrast Sagittal T1,Axial FSE T2, Flair, DWI images submitted. No comparisons. FINDINGS: Jfta-si-hfdklwry cerebral atrophy. The ventricles, sulci and gyri are of normal size, shape and contour for age and degree of atrophy. Midline structures are centrally located. No convincing evidence of suspicious intra- or extra-axial fluid collections. Mild to moderate patchy regions of increased T2 signal within the periventricular and subcortical white matter of both cerebral hemispheres. No regions of restricted diffusion. IMPRESSION: 1. No radiographic evidence of acute intracranial abnormalities. 2. Mild to moderate cerebral atrophy. 3. Mild to moderate supratentorial white matter changes that are non-specific, but statistically most likely related to chronic small vessel ischemic disease. Dictated by Lakhwinder Piña MD @ 01/28/2022 3:39:23 PM (Electronically Signed)
== END 2022-01-28 14:00 | disposition home or self-care (01) ==
LOC: MRI 14:00
PROVIDERS: PCP Family Medicine; Visit Provider Family Medicine
DX: R42 Dizziness and giddiness (principal); G31.9 Degenerative disease of nervous system, unspecified; R26.89 Other abnormalities of gait and mobility
CPT/HCPCS: 70551

== ENCOUNTER 2022-02-02 09:43 | Outpatient (CLI) | payer OTHER, MEDICARE, SELFPAY ==
--- OUTSIDE RECORDS SUMMARY | 2022-02-02 09:48 | XMS_ITS | Encounter Summary ---
:1945 Author Organization [place] Address [facility] [place] [address] Care Team Providers Name Role Phone Robert Jones MD Primary Care Provider Unavailable Encounter Details Date Type Department Care Team Description 03/07/2013 Results Only Surgery Clinic Marisela Torres MD [facility] [address] [facility] [address] [place] [address] 1st Floor, Clinic [address] [place] [address] [place] [address] [phone] Social History Tobacco Use Types Packs/Day Years Used Date Never Smoker Alcohol Use Standard Drinks/Week Comments Yes 0 (1 standard drink = 0.6 oz pure alcoho l) Sex Assigned at Date Recorded Not on file documented as of this encounter Plan of Treatment Scheduled Orders Name Type Priority Associated Diagnoses Order S chedule CT Digital Archive-Non Imaging Order ed: 03/07/2013 [place] documented as of this encounter Visit Diagnoses Not on filedocumented in this encounter Care Teams Molder Punch Relationship Specialty Start Date End Date Robert Jones MD PCP - General Internal Medicine 02/19/13 09/27/20 documented as of this encounter
--- OUTSIDE RECORDS SUMMARY | 2022-02-02 09:48 | XMS_ITS | Encounter Summary ---
:1945 Author Organization [place] Address [facility] [place] [address] Care Team Providers Name Role Phone Zeynep Keller MD Primary Care Provider [phone] Reason for Referral Diagnostic Imaging XR (Routine) - Closed Specialty Diagnoses / Procedures Referred By Contact Refer red To Contact Diagnoses Screening for heart disease Self, ReferredMD Procedures Radiologist Consult For Cardiology Referral ID Status Reason Start Date Expiration Date Visits Requ ested Visits Authorized [id number] Closed 09/22/2020 09/22/2021 [address] Scan (Routine) - Denied Specialty Diagnoses / Procedures Referred By Contact Refer red To Contact Cardiology Diagnoses Screening for heart disease Self, MD Herminio Tarango Cv Ct Procedures CT Coronary Calcium Scan [address] [facility] [address] [place] [phone] Phone: Referral ID Status Reason Start Date Expiration Date Visits Requ ested Visits Authorized [id number] Denied 09/22/2020 09/22/2021 1 0 Reason for Visit Diagnostic Imaging CT Scan (Routine) - Denied Specialty Diagnoses / Procedures Referred By Contact Refer red To Contact Cardiology Diagnoses Screening for heart disease Ruben, ReferredMD [facility] Procedures CT Coronary Calcium Scan [address] [facility] [address] [place] [phone] Phone: Referral ID Status Reason Start Date Expiration Date Visits Requ ested Visits Authorized [id number] Denied 09/22/2020 09/22/2021 1 0 Encounter Details Date Type Department Care Team Description 09/28/2020 Hospital Encounter [facility] Zeynep Keller Screening for heart [facility] MD Ericka disease Heart [facility] [address] [facility] [address] [facility] [address] [place], [place] [phone] Social History Tobacco Use Types Packs/Day Years [...] inciden t. Coronary calcification was analyzed using Garena calcium scoring software. Scan protocol was optimized [...] 1.3% per year (Penny Ulloa et al. [facility], 2007; 4 9:378-402). The more calcium is [...] inciden t. Coronary calcification was analyzed using Garena calcium scoring software. Scan protocol was optimized [...] 1.3% per year (Penny Ulloa et al. [facility], 2007; 4 9:378-402). The more calcium is [...] conditions documented in this encounter Care Teams Marketing Ambassador Relationship Specialty Start Date End Date Zeynep Keller MD PCP - General Family Medicine 09/28/[address] [address] documented as of this encounter
--- OUTSIDE RECORDS SUMMARY | 2022-02-02 09:48 | XMS_ITS | Clinical Summary ---
:1945 Author Organization [facility] [place] [address] Care Team Providers Name Role Phone Padmini Burgos MD Primary Care Provider Allergies Active Allergy Reactions Severity Noted Date Comments Doxycycline Other - Describe In 02/17/2014 numbness Comment Field Other reaction (s): Other (see comm ents) numbness Iodinated Contrast Shortness Of Breath, 03/16/2012 S neezing and Media Dyspnea congestion in 2 00. Pt. States no h istory of allergy to t opical betadine. Sneezing and congestion in 2 00. Pt. States no h istory of allergy to t opical betadine. Morphine Dizziness 06/27/2003 Other reaction( s): Other (see comm ents) Nickel Rash, Itching 05/16/2007 Medications Medication Sig Dispensed Refills Start Date End Date Status CALCIUM + D ORAL None Entered 0 Active MULTIVITAMIN TAB take 1 tablet by 0 04/11/2006 Active oral route once daily with food COENZYME Q10 200 MG takes one tablet 0 0 05/15/2008 Active TAB daily BENEFIBER (GUAR GUM) 0 01/26/2009 Active PACKET Vtsty-6-XLC-EPA-Fish Take 5 mL by mouth 0 06/17/2010 Active Oil 500-800 mg/5 mL once daily. LiqdIndications: Other and unspecified hyperlipidemia aspirin enteric Take 1 tablet by 0 11/02/2012 Active coated 81 mg tablet mouth once daily with a meal. Elderberry Fruit 200 Takes liquid form, 0 11/02/2012 Active mg cap 5 ml at bedtime as needed for expectorant. nystatin powder Apply topically to 30 g 11 11/03/2015 Active (NYSTOP) affected area(s) 2 powderIndications: times daily if Rash and other needed for Other nonspecific skin (Specify). APPLY TO eruption THE AFFECTED AREA TWICE DAILY NEEDED ibuprofen (MOTRIN; Take 10 mL by mouth 0 09/15/2016 Active ADVIL) 100 mg/5 mL 4 times daily. suspensionIndications : Chronic pain of right knee, Hip pain, right acetaminophen SR Take 1 tablet by 0 09/15/2016 Active (TYLENOL ARTHRITIS mouth every 8 PAIN) 650 mg hours. Max Extended-Release acetaminophen dose: tabletIndications: 4000mg in 24 hrs. Chronic pain of right knee, Hip pain, right atorvastatin TAKE ONE TABLET BY 90 tablet 2 11/03/2016 Active (LIPITOR) 20 mg MOUTH EVERY DAY tabletIndications: Hyperlipidemia, unspecified lisinopril-hydrochlor 0 04/28/2017 Active othiazide, 20-25 mg, (PRINZIDE, ZESTORETIC) 20-25 mg per tablet amLODIPine (NORVASC) Take 1 tablet by 0 07/10/2017 Active 5 mg tablet mouth once daily. vit Take 1 capsule by 60 capsule 5 07/10/2017 Active C,S-Pw-ceyoq-lutein-z mouth 2 times eaxan daily. capsuleIndications: AMD (age-related macular degeneration), bilateral cholecalciferol Take 1 Capsule by 0 Active (VITAMIN D3) 1,000 mouth. unit capsule Docosahexanoic Take 2 g by mouth. 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 07/17 Cyst, breast 01/23/2012 Chronic rhinosinusitis 12/09/2011 Anxiety state, unspecified 09/16/2010 Hair loss 03/01/2010 GIFTY 02/23/2010 AHI-32 02/26/2010 Aneurysm, splenic artery 06/18/2009 Overview: 1.75 cm aneurysm of the splenic artery w ith a calcified rim seen on abdominal CT scan of 12/11/08. Abnormal mammogram, unspecified 05/14/2009 Personal history of colonic polyps Overview: adenoma 05/03/05 q5 yr. Unspecified essential hypertension Other and unspecified hyperlipidemia Osteoarthrosis, unspecified whether generalized or loc alized, unspecified site Resolved Problems Problem Noted Date Resolved Date History of bone density study 04/04/2011 11/02/2012 Overview: Repeat q 2 years, last done 01/29/09 Health Maintenance 02/16/2010 Overview: Preventative: Pap with Dr Moncada Mammo 04/12/2006 BMD 03/07 nl DT 04/09 Pneumovax at 67 yo Colonoscopy 04/2005 Unspecified sleep apnea 08/18/2011 Overview: better with weight loss. Not using CPAP Encounters Date Type Specialty Care Team Description 12/14/2021 Office Visit Diego Ramirez MD Sleep Follow -up (CPAP) 12/14/2021 Travel from Last 3 Months Immunizations Name Administration Dates Next Due AMB Influenza, IIV3 (Age >=3 02/28/2013, 03/09/2012, 011, years)(Flu Clinic Only) 03/17/2009 AMB Influenza, IIV4 PF (=>6 mos 03/08/2016, 02/24/2014 Flulaval,Fluzone Fluarix)(Flu Clinic Only) Amb Influenza, Inactivated AIIV4 (Age 1003/11/2020 65+ Years) Preserv Free Influenza A (H1N1), Inactivated (Age 0106/17/2009 >=3 Years) Influenza, High-dose Inactivated 03/17/2015 Influenza, IIV3 (Age >=3 years) 02/25/2010, 03/20/2008, 11/0 02/2007, 04/11/2006 Pneumococcal Poly,23-Valent 11/02/2012 (Pneumovax) Pneumococcal conj 13-Valent (Prevnar 04/10/2015 13) Tdap 11/27/2008 Zoster (Shingrix-RZV, recombinant) 03/22/2018 Zoster (Zostavax-ZVL, live) 11/27/2008 Family History Medical History Relation Name Comments Diabetes Brother Hypertension Brother Heart Disease Father arrhythmia/parki nsons Hypertension Father Cancer-breast Maternal Aunt 60's Macular degeneration Maternal Aunt Heart Disease Mother chf, AL at 89 Other Mother Dementia/colon p olyps/glaucoma Cancer-colon Other 1 great grandfathe r Cancer Other 2 bone,prostrate,l iver. aunts and uncles Cancer-breast Paternal Aunt early 70's Cancer-ovarian No Family History Cancer-prostate No Family History Relation Name Status Comments Brother Father Maternal Aunt Mother (Age 89) AL Other 1 Other 2 Paternal Aunt Social History Tobacco Use Types Packs/Day Years Used Date Never Smoker Smokeless Tobacco: Never Used Tobacco Cessation: Counseling Given: Yes Alcohol Use Standard Drinks/Week Comments Yes 0 (1 standard drink = 0.6 oz pure Rarely - a glass of wine maybe alcohol) three times a year Alcohol Habits Answer Date Recorded How often do you have a drink Not asked containing alcohol? How many drinks containing alcohol do Not asked you have on a typical day when you are drinking? How often do you have six or more Not asked drinks on one occasion? Comment: Rarely - a glass of wine maybe 6 three times a year Sex Assigned at Date Recorded Not on file Obstetrics History Last Filed Vital Signs Vital Sign Reading Time Taken Comments Blood Pressure 137/65 12/14/2021 1:41 PM CDT Pulse 67 12/14/2021 1:41 PM CDT Temperature 36.7 ??C (98.1 ??F) 02/25/2019 10:34 AM CDT Respiratory Rate 16 06/28/2017 11:23 AM COVER OPERATOR Oxygen Saturation 97% 12/14/2021 1:41 PM CDT Inhaled Oxygen Concentration - - Weight 89.3 kg (196 lb 12.8 oz) 12/14/2021 1:41 PM CDT Height 163.2 cm (5' 4.27) 11/08/2017 9:43 AM CDT Body Mass Index 33.5 11/08/2017 9:43 AM CDT Plan of Treatment Health Maintenance Due Date Last Done Comments Hepatitis C screening for age 1104/19/1963 18-79 Mammogram for age 45-75 12/20/2016 12/21/2015, 12/19/2014, 12/16/2013, Additional history exists Depression screening for age 12+ 04/21/2017 04/21/2016 Medicare Wellness for age 65+ 04/21/2017 04/21/2016, 2014, 11/02/2012 Zoster (shingles) series for age 1205/17/2018 03/22/2018, 50+ (3 of 3) BMI (ht and wt on same day) for 11/08/2018 11/08/2017, 03/06, age 18+ 09/15/2016, Additional history exists Tetanus booster 11/27/2018 11/27/2008 Lipids for age 45-75 04/21/2021 04/21/2016, 04/10/2015, 12/26/2013, Additional history exists Influenza for age 65+ 02/03/2022 03/11/2020, 03/08/2016, 03/17/2015, Additional history exists Colonoscopy through age 75 04/17/2023 04/17/2018, 3, 03/13/2013, Additional history exists Tdap Completed 11/27/2008 DEXA/DXA scan for age 65+ Completed 02/28/2013, 04/20/2011 (Completed outside of [facility]), 04/14/2011, Additional history exists Pneumococcal series for age 65+ Completed 04/10/2015, 10/05 COVID-19 vaccine series Completed 09/14/2021, 03/16/2021, 08/18/2020, Additional history exists Medical Devices Implanted Type Area Pole Peeling Machine Operator Device Shelf Model / Identifier Expiration Serial / Lot Date Lens Iol 19.0 Wf [id number] - [id number] Left: Chema 05/04/2020 [id number]# / Implanted: Qty: 1 on 08/17/2015 by Woody Alicea MD at [facility] [employer] [id number] / Lens Iol 15.5 Wf [id number] - [id number] Right: Chema 01/07/2020 [id number]# / Implanted: Qty: 1 on 09/07/2015 by Woody Alicea MD at [facility] [employer] [facility] [id number] / Procedures Procedure Name Priority Date/Time Associated Diagnosis Comme nts SCAN-DIAGNOSTIC 12/13/2021 12:00 AM Resul ts for this REPORT CDT procedure are i n the results section. from Last 3 Months Results SCAN-DIAGNOSTIC REPORT (12/13/2021 12:00 AM CDT) Narrative This result has an attachment that is no t available. Scanner OTHER from Last 3 Months Insurance Payer Benefit Plan / Subscriber ID Effective Dates Phone Addre ss Type Group [employer] [id number] 2010-[employer] [address] [place] [address] MEDICARE PART A MEDICARE PART A [id number] 2012-[employer] ATTN: CLAIMS - HB USE ONLY HB ONLY t [address] [place] [address] MEDICARE PART B MEDICARE PART B [id number] 2012-Presen ATTN: CLAIMS - HB USE ONLY HB ONLY t [address] [place] [address] [employer] MEDICARE [id number] 2021-Present [address] [place] [address] [employer] [place] [id number] 2015-Present [address] [place] [address] Advance Directives Latest Code Status on File Code Status Date Activated Date Inactivated Comments Full Code 06/28/2017 11:20 AM 06/29/2017 2:18 AM Full Code 09/07/2015 8:48 AM 09/07/2015 1:51 PM Full Code 08/17/2015 9:01 AM 08/17/2015 1:49 PM Care Teams Director Of Casino Relationship Specialty Start Date End Date Padmini Burgos MD PCP - General Internal Medicine 03/16/[address] [place] [address]
--- OUTSIDE RECORDS SUMMARY | 2022-02-02 09:48 | XMS_ITS | Encounter Summary ---
:1945 Author Organization [place] Address [address] [place] [address]. [place] [address] Care Team Providers Name Role Phone Zeynep Keller MD Primary Care Provider [phone] Encounter Details Date Type Department Care [...] on filedocumented in this encounter Care Teams Community Music Therapist Relationship Specialty Start Date End Date Zeynep Keller MD PCP - General Family Medicine 09/28/[address] [address] documented as of this encounter
--- OUTSIDE RECORDS SUMMARY | 2022-02-02 09:48 | XMS_ITS | Clinical Summary ---
:1945 Author Organization [place] Address [address] [place] [address]. [place] [address] Care Team Providers Name Role Phone Zeynep Keller MD Primary Care Provider [phone] Allergies Active Allergy Reactions Severity Noted Date [...] Address T ype Group Dates MEDICARE MEDICARE [id number] 2012-Pr [phone] Medic are esent [phone] CLAIMS [address] [facility] [address] [facility] [id number] 2020-Pre [phone] [address]OX HMO MEDICARE SUPP SR sent [phone] [facility] [place] [address] Care Teams Provider Relations Manager Relationship Specialty Start Date End Date Zeynep Keller MD PCP - General Family Medicine 09/28/[address] [address]
--- OUTSIDE RECORDS SUMMARY | 2022-02-02 09:48 | XMS_ITS | Encounter Summary ---
:1945 Author Organization [place] Address [address] [place] [address] Care Team Providers Name Role Phone Zeynep Keller MD Primary Care Provider [phone] Encounter Details Date Type Department Care Team [...] 12:00 AM R esults for this VIEWS POULTRY HUSBANDRY TEACHER procedure are i n the results section. documented in this encounter Results XR Foot Right G/E 3 Views (04/09/2000 12:00 AM POULTRY HUSBANDRY TEACHER) Anatomical Region Laterality Modality Foot, Ankle Right Other Specimen (Source) Anatomical Location Collection Method / Collectio n Time Received Time / Laterality Volume Narrative 04/09/2000 12:00 AM POULTRY HUSBANDRY TEACHER See Historical Hospital Medical Record f or documentation Procedure Note Provider, Historical - 10/27/2020Formatt ing of this note might be different from the original. See Historical Hospital Medical Record f or documentation Historical Provider IMG DIAGNOSTIC IMAGING ORDER DIPIKA documented in this encounter Visit Diagnoses Not on filedocumented in this encounter Care Teams Soft Work Wrapper Layer And Examiner Relationship Specialty Start Date End Date Zeynep Keller MD PCP - General Family Medicine 09/28/[address] [address] documented as of this encounter
--- OUTSIDE RECORDS SUMMARY | 2022-02-02 09:48 | XMS_ITS | Encounter Summary ---
:1945 Author Organization [place] Address [facility] [place] [address] Care Team Providers Name Role Phone [place] Jones MD Primary Care Provider Unavailable Encounter Details Date Type Department Care Team Description 03/07/2013 Results Only Surgery Clinic Marisela Torres MD [facility] [address] [facility] [address] [place] [address] 1st Floor, Clinic [address] [place] [address] [place] [phone] Social History Tobacco Use Types Packs/Day Years Used Date Never Smoker Alcohol Use Standard Drinks/Week Comments Yes 0 (1 standard drink = 0.6 oz pure alcoho l) Sex Assigned at Date Recorded Not on file documented as of this encounter Plan of Treatment Scheduled Orders Name Type Priority Associated Diagnoses Order S chedule CT Digital Archive-Non Imaging Order ed: 03/07/2013 [place] documented as of this encounter Visit Diagnoses Not on filedocumented in this encounter Care Teams Lock Plater Relationship Specialty Start Date End Date [place] Jones MD PCP - General Internal Medicine 02/19/13 09/27/20 documented as of this encounter
--- OUTSIDE RECORDS SUMMARY | 2022-02-02 09:48 | XMS_ITS | Encounter Summary ---
:1945 Author Organization [place] Address [facility] [place] [address] Care Team Providers Name Role Phone [place] MD Primary Care Provider Unavailable Encounter Details Date Type Department Care Team Description 02/17/2014 Care Coordination P Interventional Sarah Howard insole beveler Consult Cl inic [phone] 6 [facility] (Work) [address] [phone] Social History Tobacco Use [...] [facility] for. Informed her that we'd like to have a CT And f/u appt. She informs me that she was informed by Dr Torres that she can f/u via [facility] at the [facility] in which she is doing. She states [...] on filedocumented in this encounter Care Teams Smoke Jumper Relationship Specialty Start Date End Date [place] Jones MD PCP - General Internal Medicine 02/19/13 09/27/20 documented as of this encounter
--- OUTSIDE RECORDS SUMMARY | 2022-02-02 09:48 | XMS_ITS | Encounter Summary ---
:1945 Author Organization [place] Address [facility] [place] [address] Care Team Providers Name Role Phone [place] MD Primary Care Provider Unavailable Encounter Details Date Type Department Care Team Description 03/20/2013 Telephone [facility] Cancer Clini c [place], RN [facility] lding 1st Floor, [address] [phone] Social History Tobacco Use Types Packs/Day [...] the images that she had done at [facility] andindicated that the splenic artery aneurysm is stable and that we would recommend f/u in [address]. She verbalized understanding and will call with any further questions documented in this encounter Plan of Treatment Not on filedocumented as of this encounter Visit Diagnoses Not on filedocumented in this encounter Care Teams Technical Buyer Relationship Specialty Start Date End Date [place] Jones MD PCP - General Internal Medicine 02/19/13 09/27/20 documented as of this encounter
--- OUTSIDE RECORDS SUMMARY | 2022-02-02 09:49 | XMS_ITS | Encounter Summary ---
:1945 Author Organization [facility] Address [address] [place] [address] Care Team Providers Name Role Phone Unavailable Primary Care Provider Unavailable Reason for Referral Outpatient (Routine) - Pending Review Specialty Diagnoses / Procedures Referred By Contact Refer red To Contact Diagnoses Goiter Multinodular Nontoxic Wild Coelho M.D. Procedures FNA Neck [address] [place], [place] [address] Referral ID Status Reason Start Date Expiration Date Visits V isits Requested Authorized [id number] Pending 11/10/2021 11/10/2022 1 1 Review Reason for Visit Reason Comments Thyroid Nodule END Thyroid USG Outpatient (Routine) - Closed Specialty Diagnoses / Procedures Referred By Contact Refer red To Contact Diagnoses Nodule Thyroid Angelita Gallego M.D. [facility] Procedures END Thyroid USG [address] [place] [address] Referral ID Status Reason Start Date Expiration Date Visits Requ ested Visits Authorized [id number] Closed 11/10/2021 11/10/2022 1 1 Encounter Details Date Type Department Care Team Description 11/10/2021 Procedure visit Division of Angelita Gallego M .D. [address] [place] [phone] Goiter Multinodular Nontoxic (Primary Dx ); Endocrinology in Wild Coelho M.D. [address] [place] [phone] Nodule Thyroid [place], [place] 200 [place] [phone] Social History Tobacco Use Types Packs/Day Years [...] or relatives? How often do you attend tenriism or More than 4 times per year 09/21/2021 yarsani services? Do you belong to any clubs or Not asked organizations such as tenriism groups, unions, fraternal or athletic groups, or [...] place to sleep or slept in a fci (including now)? Education Answer Date Recorded What is the highest level of school Master's degree (e.g., M A, MS, 09/21/2021 you have completed or the highest Cecil, MEd, SOLUTIONS MARKET CONSULTANT, ARMANDO) degree you have received? Sex Assigned [...] Name Priority Date/Time Associated Diagnosis Comme nts IA FNA BX W/US GDN Routine 11/10/2021 3:00 PM Goiter Multinodu lar Results for this 1ST LES CDT Nontoxic procedure are i n the results section. CYTOLOGY FINE Routine 11/10/2021 2:33 PM Nodule Thyroid Result s for this NEEDLE ASPIRATION CDT procedure are in (INCLUDES CORE the results BIOPSIES section. documented in this encounter Results IA FNA BX W/US GDN 1ST LES (11/10/2021 [...] Component Value Ref Test Analysis Performed At [facility] Range Method Time Signature 11/11/2021 DTL 11:33 [...] Organization Address City/State/ZIP Code Phon e Number [facility] - [address] [place], [place] [address] [facility] [place] [address] [facility] [address] documented in [...]
--- OUTSIDE RECORDS SUMMARY | 2022-02-02 09:49 | XMS_ITS | Encounter Summary ---
:1945 Author Organization [place] Address [facility]0 [facility] [place] [address] Care Team Providers Name Role Phone [place] MD Primary Care Provider Unavailable Encounter Details Date Type Department Care Team Description 03/04/2013 Orders Only [facility] Interventional Sarah Howard, Splenic artery Radiology Consult Cl reinaldo RN aneurysm (H) (Primary [address] [facility] [address] [phone] Dx) [facility]LEY RAINES ([facility]) [address] [phone] Social History Tobacco Use Types Packs/Day Years Used Date Never Assessed Sex Assigned at Date Recorded Not on file documented as of this encounter Plan of Treatment Not on filedocumented as of this encounter Visit Diagnoses Diagnosis 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
--- OUTSIDE RECORDS SUMMARY | 2022-02-02 09:49 | XMS_ITS | Encounter Summary ---
:1945 Author Organization [facility] Address [address] [place] [address] Care Team Providers Name Role Phone Unavailable Primary Care Provider Unavailable Reason for Visit Reason Comments Pre-visit Intake Encounter Details Date Type Department Care Team Description 11/09/2021 Clinical Communication Visit Review in Pr e-visit Intake [place], [place] [address] [place] [address] Social History Tobacco Use Types [...] or relatives? How often do you attend buddhist or More than 4 times per year 09/21/2021 adventism services? Do you belong to any clubs or Not asked organizations such as buddhist groups, unions, fraternal or athletic groups, or [...] place to sleep or slept in a skilled nursing (including now)? Education Answer Date Recorded What is the highest level of school Master's degree (e.g., Brock Dang MS, 09/21/2021 you have completed or the highest Cecil, MEd, COREMAKER SUPERVISOR, ARMANDO) degree you have received? Sex Assigned at Date Recorded Female 09/21/2021 10:37 AM CDT documented as of this encounter Plan of Treatment Not on filedocumented as of this encounter Visit Diagnoses Not on filedocumented in this encounter
--- OUTSIDE RECORDS SUMMARY | 2022-02-02 09:49 | XMS_ITS | Encounter Summary ---
:1945 Author Organization [place] Address [address] [place] [address]. [place] [address] Care Team Providers Name Role Phone [place] Jones MD Primary Care Provider Unavailable Reason for Visit Reason Onset Date Comments Previsit 03/01/2013 called patient she c onfirmed her appt Encounter Details Date Type Department Care Team Description 03/01/2013 PRE VISIT Surgery Interventional Marisela Torres Previsit (called Radiology MD patient she confirmed [place] [facility] Building [facility] [address] 1st Floor, Clinic [address] [place] [address] [facility] Emergency Department [address] [place], [place] [phone] (Work) [phone] Social History Tobacco Use Types Packs/Day Years [...] on filedocumented in this encounter Care Teams Creel Operator Relationship Specialty Start Date End Date [place] Jones MD PCP - General Internal Medicine 02/19/13 09/27/20 documented as of this encounter
--- OUTSIDE RECORDS SUMMARY | 2022-02-02 09:49 | XMS_ITS | Encounter Summary ---
:1945 Author Organization [place] Address [facility] [address] Care Team Providers Name Role Phone [place] Jones MD Primary Care Provider Unavailable Reason for Referral - Closed Specialty Diagnoses / Procedures Referred By Contact Refer red To Contact Diagnoses Splenic artery aneurysm (H) Marisela Torres MD Procedures CT Abdomen w/o contrast [address] [address] Referral ID Status Reason Start Date Expiration Date Visits Requ ested Visits Authorized [id number] Closed 03/05/2013 09/01/2013 1 1 Reason for Visit Reason Comments Consult Consultation Spenic Artery A neurysm Encounter Details Date Type Department Care Team Description 03/05/2013 Office Visit Surgery Interventional Marisela Torres, Splenic artery Radiology aneurysm (H) [place] [address] (Carmelina johnson Dx) Building [facility] [address] 1st Floor, Clinic [address]E [place] [address] [facility] [place] [place] [address] [place], [place] [phone] [phone] (Work) [phone] Social History Tobacco Use Types Packs/Day Years [...] CDT Primary Care Physician: [place] Gray in [facility]. Reason for Consultation: Opinion on pt's splenic artery aneurysm. Brief History: Ms. Layton is a 67 y/o female who is being seen in the interventional radiology clinic at the [facility] for evaluation of a splenic artery aneurysm. Per her report, she was aware of this finding dating back to 2009. She has had prior imaging at [facility] and [place], [place]. 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 She has been seen at 2 other locations ([place] [facility] in [facility]) and [facility], and has essentially been told that [...] April, of the aneurysm from [facility] but I do not have those [...] artery documented in this encounter Care Teams Agriculture Consultant Relationship Specialty Start Date End Date Robert Jones MD PCP - General Internal Medicine 02/19/13 09/27/20 documented as of this encounter
--- OUTSIDE RECORDS SUMMARY | 2022-02-02 09:49 | XMS_ITS | Encounter Summary ---
:1945 Author Organization [facility] Address [address] [place] [address] Care Team Providers Name Role Phone Unavailable Primary Care Provider Unavailable Reason for Referral Outpatient (Routine) - Closed Specialty Diagnoses / Procedures Referred By Contact Refer red To Contact Endocrinology Diagnoses Nodule Thyroid Zeynep Keller M.D. [facility] [address] [place] [address] Referral ID Status Reason Start Date Expiration Date Visits Requ ested Visits Authorized [id number] Closed 10/25/2021 10/25/2022 1 1 Encounter Details Date Type Department Care Team Description [facility] Zari Adhikari (Primary Dx) [address] [facility] [address] [place] [address] [place], [place] [phone] [address] Social History Tobacco Use Types Packs/Day Years [...] or relatives? How often do you attend taoist or More than 4 times per year 09/21/2021 cheondoism services? Do you belong to any clubs or Not asked organizations such as taoist groups, unions, fraternal or athletic groups, or [...] or slept in a fdc (including now)? Education Answer Date Recorded What is the highest level of school Master's degree (e.g., M A, MS, 09/21/2021 you have completed or the highest Cecil, MEd, TRAFFIC INCIDENT MANAGEMENT MANAGER, ARMANDO) degree you have received? Sex Assigned at Date Recorded Female 09/21/2021 10:37 AM CDT documented as of this encounter Plan of Treatment Scheduled Referrals Name Type Priority Associated Diagnoses Order S [facility] General Surgery Outpatient Referral Routine Nodule Thyroid Exp ected: Referral 10/25/2021 (Approximate), Expires: 01/25/2023 documented as of this encounter Visit Diagnoses Diagnosis Nodule Thyroid - Primary documented in this encounter
--- OUTSIDE RECORDS SUMMARY | 2022-02-02 09:49 | XMS_ITS | Encounter Summary ---
:1945 Author Organization [facility] Address [address] [place] [address] Care Team Providers Name Role Phone Unavailable [...] or relatives? How often do you attend mandaeism or More than 4 times per year 09/21/2021 restoration services? Do you belong to any clubs or Not asked organizations such as mandaeism groups, unions, fraternal or athletic groups, or [...] slept in a group home (including now)? Education Answer Date Recorded What is the highest level of school Master's degree (e.g., M A, MS, 09/21/2021 you have completed or the highest Cecil, MEd, AUTOMATIC TRIMMING SEWER, ARMANDO) degree you have received? Sex Assigned [...]
--- OUTSIDE RECORDS SUMMARY | 2022-02-02 09:49 | XMS_ITS | Encounter Summary ---
:1945 Author Organization [facility] Address [address] [place] [address] Care Team Providers Name Role Phone Unavailable Primary Care Provider Unavailable Reason for Visit Appointment Request (Routine) - Closed Specialty Diagnoses / Procedures Referred By Contact Refer red To Contact Dermatology Referral ID Status Reason Start Date Expiration Date Visits Requ ested Visits Authorized [id number] Closed 09/13/2021 09/13/2022 1 1 Encounter Details Date Type Department Care Team Description 09/23/2021 Office Visit Department of Ryann Russell A ctinic (Primary Dx); Dermatology in R, PSiobhanA.-C., M.S. Dermatoheliosis; [place], [place] [address] [facility] Keratosis Seborrheic; [address] [place], [place] Angioma Muñiz; [place] [address] Nevi Multiple; [phone] Screening Examination Skin C ancer; Lentigo; [phone] Tumor Skin Unce rtain Behavior (Fax) Social [...] More than 4 times per year 09/21/2021 confucianism services? Do you belong to any clubs [...] slept in a senior living (including now)? Education Answer Date Recorded What is the highest level of school Master's degree (e.g., M A, MS, 09/21/2021 you have completed or the highest Cecil, MEd, OFFENSIVE COORDINATOR, ARMANDO) degree you have received? Sex Assigned at Date Recorded Female 09/21/2021 10:37 AM CDT documented as of this encounter Consult Notes Ryann Russell P.A.-C., M.S. - 09/23/2021 11:20 AM CDT REFERRED BY No ref. provider found Supervised by: Dr. Stephani Arias ([phone]) Supervising trousseau consultant, Dr. Stephani Arias, was immediately available [...] the patient by letter. Patient given pamphlet [id number]. #7 Muñiz Angiomas #8 Seborrheic Keratoses #9 [...] Procedure Name Priority Date/Time Associated Diagnosis Comme [facility] DERMATOPATHOLOGY Routine 09/23/2021 10:45 AM Resu lts for this CDT procedure are i n the results section. documented in this encounter Results Dermatopathology (09/23/2021 10:45 AM CDT) Component Value Ref Test Analysis Performed Pathologis t Range Method Time At Signature 09/29/2021 [facility] 9:46 AM CDT Report Veronica Carroll 09/29/2021 [facility] electronically Zari Dubose 9:46 AM CDT signed by Juany Description A: ?? Received in formalin labeled with patient's name, 09/29/2021 [facility] medical record number and right jawline is a 0.4 cm in 9:46 AM CDT diameter pale medrano skin punch biopsy excised to a depth of 0.1 cm. ??There is a 0.3 x 0.2 cm medrano lesion with ill-defined borders eccentrically located on the skin surface. ??The specimen is bisected and submitted entirely in cassette A1. ??Grossed by TN. B: ?? Received in formalin labeled with [...] submitted entirely in cassette B1. ??Grossed by TN. Interpretation FINAL DIAGNOSIS 09/29/2021 [facility] A. 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
--- OUTSIDE RECORDS SUMMARY | 2022-02-02 09:49 | XMS_ITS | Encounter Summary ---
:1945 Author Organization [facility] Address [address] [place] [address] Care Team Providers Name Role Phone Unavailable Primary Care Provider Unavailable Reason for Referral Outpatient (Routine) - Authorized Specialty Diagnoses / Procedures Referred By Contact Refer red To Contact Diagnoses Nodule Thyroid Angelita Gallego M.D. [facility] Procedures US Thyroid US Head Neck Soft Tissue [address] [place], [place] [address] Referral ID Status Reason Start Date Expiration Date Visits V isits Requested Authorized [id number] Authorized 11/10/2021 11/10/2022 1 1 utpatient (Routine) - Closed Specialty Diagnoses / Procedures Referred By Contact Refer red To Contact Diagnoses Nodule Thyroid Angelita Gallego M.D. [facility] Procedures END Thyroid USG [address] [place], [place] [address] Referral ID Status Reason Start Date Expiration Date Visits Requ ested Visits Authorized [id number] Closed 11/10/2021 11/10/2022 1 1 Reason for Visit Outpatient (Routine) - Closed Specialty Diagnoses / Procedures Referred By Contact Refer red To Contact Endocrinology Diagnoses Nodule Thyroid Zeynep Keller M.D. [address] [address] Referral ID Status Reason Start Date Expiration Date Visits Requ ested Visits Authorized [id number] Closed 10/25/2021 10/25/2022 1 1 Encounter Details Date Type Department Care Team Description 11/10/2021 Comprehensive Visit Division of Angelita Gallego Nodule Thyroid Endocrinology in [place]line [place], [place] [address] [place] [phone] [phone] Social History Tobacco Use Types Packs/Day Years [...] or relatives? How often do you attend uatsdin or More than 4 times per year 09/21/2021 anabaptist services? Do you belong to any clubs or Not asked organizations such as uatsdin groups, unions, fraternal or athletic groups, or [...] have completed or the highest Cecil, MEd, TRANSPORTATION SPECIALIST, ARMANDO) degree you have received? Sex [...] ILLNESS She is a 76 yof from [place], [place]. She is here with her Padmini [...] Code Phon e Number [facility] - [address] [place], [place] [address] [facility] [address] [facility] [address] documented in this encounter Visit Diagnoses Diagnosis Nodule Thyroid documented in this encounter
--- OUTSIDE RECORDS SUMMARY | 2022-02-02 09:49 | XMS_ITS | Encounter Summary ---
:1945 Author Organization [facility] Address [address] [place] [address] Care Team Providers Name Role Phone Unavailable [...] More than 4 times per year 09/21/2021 christian services? Do you belong to any clubs [...] have completed or the highest Cecil, MEd, WOOD GETTER, ARMANDO) degree you have received? Sex Assigned [...]
--- OUTSIDE RECORDS SUMMARY | 2022-02-02 09:49 | XMS_ITS | Clinical Summary ---
:1945 Author Organization [facility] Address [address] [place] [address] Care Team Providers Name Role Phone Unavailable Primary Care Provider Unavailable Source Comments Patient records contain information from all sites at [facility]. For routine questions regarding patient records, call [phone] during business hours, M-F 8:00 AM - 5:00 PM Central Time. Record requests for emergency care only can be directed to [phone] at any time.[facility] Allergies Active Allergy Reactions Severity Noted Date [...] Take by mouth. 0 04/11/2006 Active omega 0-xgy-vil-fish oil Take 1 capsule 0 04/20/2012 Active [...] suspension pain. UNABLE TO FIND Med Name: [place] 0 Active eye drops aspirin 81 mg [...] Take 1 capsule 0 07/10/2017 Acti ve C,F-Cb-bbhhg-lutein-zeax by mouth 2 (two) an (AREDS 2) [...] Anesthesia problems Brother Colton Medina in tubation [place] Arthritis Brother Colton [facility] Colon polyps Brother Colton [facility] Diabetes Brother Colton [facility] Hyperlipidemia Brother Colton [facility] Hypertension Brother Colton [facility] Kidney disease Brother Colton [facility] Parkinson disease Brother Colton [facility] Skin cancer Brother Colton [facility] Sleep apnea Brother Colton [facility] Alcohol abuse Father Bipin SSiobhan Layton [...] Colon polyps Mother Sarah Colunga Colon section [place] removed due to cancerous polyp Coronary artery disease Mother Sarah Colunga of heart attack [place] in 2006 Hypertension Mother Sarah Colunga [place] Migraines Mother Sarah Colunga [place] Osteoporosis Mother Sarah Colunga [place] Transient ischemic attack Mother Sarah Colunga [place] Breast cancer Mother's Sister Lizbeth Lawson Alcohol abuse Paternal Grandfather Colton Layton Sr. befor e I was born Colon cancer Paternal Grandfather Colton Layton Sr. Bleeding Disorder Paternal Grandmother Elin Hanley from blood loss [place] in childbirth approx. 1920 Relation Name Status Comments Brother Colton Layton Father Bipin S. Kinjal Father's Sister Afshan Maternal Grandfather Claus Kimmanisha Colunga Sr. Maternal Grandmother Sarah Colunga Mother Sarha Colunga [place] Mother's Sister Lizbeth Renny Paternal Grandfather Colton Layton Sr. Paternal Grandmother Elin [facility] Social History Tobacco Use Types Packs/Day Years [...] More than 4 times per year 09/21/2021 restorationist services? Do you belong to any clubs [...] place to sleep or slept in a longterm (including now)? Education Answer Date Recorded What is the highest level of school Master's degree (e.g., M A, MS, 09/21/2021 you have completed or the highest Cecil, MEd, DRIVER LIFTER OF SANITATION TRUCK, ARMANDO) degree you have received? Sex Assigned [...] Name Priority Date/Time Associated Diagnosis Comme nts OUTSIDE MR NEURO Routine 01/28/2022 2:45 PM Resul ts for this CDT procedure are i n the results section. [place] FNA BX W/US GDN Routine 11/10/2021 3:00 [...] results section. from Last 3 Months Results MR head/brain wo con-Outside MR Neuro (01/28/2022 2:45 PM CDT) Specimen (Source) Anatomical Location Collection Method / Collectio n Time Received Time / Laterality Volume Narrative IIMS - 02/01/2022 3:14 PM CDT This order has been created and auto-finalized to support the import of outside images. If available, original i nterpretation can be found on the Media Tab in Chart Review, in Document V iewer, or as an image in QREADS. If a re-interpretation or overread is re quired please follow defined workflow. ?? Provider Not In System IMG MRI PROCEDURES Performing Organization Address City/State/ZIP Code Phon e Number IIMS IIMS [place] FNA BX W/US GDN 1ST LES (11/10/2021 3:00 PM CDT) Narrative MMODAL - 11/10/2021 3:00 PM CDT Wild Coelho M.D. ? 11/11/2021 ??7:41 AM FNA Neck Date/Time: 11/10/2021 3:00 PM Performed by: Wild Coelho M.D. Authorized by: Wild Coelho M.D. Care team members present 1. Tracy Pfeiffer 3. Sacha Mercado R.NSiobhan PROCEDURE DETAILS Number of FNA sites: 1 [...] LAB SURG PATH ORDERABLES Performing Organization Address City/[facility]/ZIP Code Phon e Number [facility] - [address] [place] [address] [address] [place] [address] [address] S-TSH (Thyroid-Stimulating Hormone - Sensitive) (11/10/2021 9:59 AM CDT) P athologist Signature TSH, Sensitive 2.9 0.3 - 4.2 11/10/2021 DTL mIU/L 12:55 PM CDT Specimen Anatomical Collection Method Collection Time Receive d Time (Source) Location / / Volume Laterality Blood (Blood, 11/10/2021 9:59 AM 11/11/19 22 Venous) CDT 10:34 AM CDT Angelita Gallego M.D. LAB BLOOD ADD-ON Performing Organization Address City/[facility] Code Phon e Number [facility] - [address] [address] [address] from Last 3 Months Insurance Payer Benefit Plan / Subscriber ID Effective Phone Address T ype Group Dates [facility] [id number] 2021-Pres [phone] [address] PPO ent [address] [place] [address]
--- OUTSIDE RECORDS SUMMARY | 2022-02-02 09:49 | XMS_ITS | Encounter Summary ---
:1945 Author Organization [facility] Address [address] [place] [address] Care Team Providers Name Role Phone Unavailable Primary Care Provider Unavailable Encounter Details Date Type Department Care Team Description 11/10/2021 Hospital Encounter Department of JuliánAngelita walton, Nodule Thyroid Laboratory Medicine and M.D. Pathology, [address] [phone] [place] [address] [place], [place] (Work) [phone] Social History Tobacco Use Types Packs/Day Years [...] or relatives? How often do you attend taoism or More than 4 times per year 09/21/2021 christianity services? Do you belong to any clubs or Not asked organizations such as taoism groups, unions, fraternal or athletic groups, or [...] have completed or the highest Cecil, MEd, WARD ASSISTANT, ARMANDO) degree you have received? Sex Assigned [...] Apply topically. 0 10/05 unit/gram powder omega 6-hft-cum-fish oil Take 1 capsule by 0 04/05 900 mg-360 mg- 455 mg-1,000 mouth daily. mg capsule UNABLE TO FIND Med Name: [place] eye 0 drops vit Take 1 capsule by 0 07/10/2017 C,N-If-zyodj-lutein-zeaxan mouth 2 (two) times (AREDS 2) 250-90-40-1 [...] City/State/ZIP Code Phon e Number [facility] - [address] [place], [place] [address] [facility] [place] [address] Laboratories-[facility] [address] documented in this encounter Visit Diagnoses Diagnosis Nodule Thyroid documented in this encounter
--- OUTSIDE RECORDS SUMMARY | 2022-02-02 09:49 | XMS_ITS | Encounter Summary ---
:1945 Author Organization [place] Address [facility] [place] [address] Care Team Providers Name Role Phone Robert Jones MD Primary Care Provider Unavailable Encounter Details Date Type Department Care Team Description 03/06/2013 Telephone [facility] Interventional Radiology Sarah Hunter, RN Consult Clinic [address] [place], [place] [phone] Social History Tobacco Use Types Packs/Day [...] she has a tentative CT angio with [place] that is coming up in Apr and [...] But if she still wants to see [place], then that's o.k as we always encourage [...] on filedocumented in this encounter Care Teams Documentation Nurse Relationship Specialty Start Date End Date Robert Jones MD PCP - General Internal Medicine 02/19/13 09/27/20 documented as of this encounter
--- OUTSIDE RECORDS SUMMARY | 2022-02-02 09:49 | XMS_ITS | Encounter Summary ---
:1945 Author Organization [place] Address [facility] [place] [address] Care Team Providers Name Role Phone Robert Jones MD Primary Care Provider Unavailable Encounter Details Date Type Department Care Team Description 03/04/2013 Telephone [facility] Interventional Radiology Sarah Hunter, RN Consult Clinic [address] [phone] Social History Tobacco Use Types Packs/Day [...] she then had some imaged done at [facility],which are US abd. She's due for another CT at [facility] in Apr. She has lots of questions [...] on filedocumented in this encounter Care Teams Store Coordinator Relationship Specialty Start Date End Date Robert Jones MD PCP - General Internal Medicine 02/19/13 09/27/20 documented as of this encounter
--- OUTSIDE RECORDS SUMMARY | 2022-02-02 09:50 | XMS_ITS | Encounter Summary ---
:1945 Author Organization [facility] Address [address] [place] [address] Care Team Providers Name Role Phone Unavailable [...] or relatives? How often do you attend religion or More than 4 times per year 09/21/2021 cheondoism services? Do you belong to any clubs or Not asked organizations such as religion groups, unions, fraternal or athletic groups, or [...]
--- OUTSIDE RECORDS SUMMARY | 2022-02-02 09:50 | XMS_ITS | Encounter Summary ---
:1945 Author Organization [facility] Address [address] [place] [address] Care Team Providers Name Role Phone Unavailable [...] or relatives? How often do you attend yazdanism or More than 4 times per year 09/21/2021 restorationist services? Do you belong to any clubs or Not asked organizations such as yazdanism groups, unions, fraternal or athletic groups, or [...] mild, L>R CDM Reports - EYEGEN Id: [id number] Status: Fnl documented in this encounter Plan of Treatment Not on filedocumented as of this encounter Visit Diagnoses Not on filedocumented in this encounter Additional Health Concerns Infection Onset Date Last Indicated Resolved Time COVID19 Pending 01/28/2021 01/28/2021 01/28/2021 11:52 PM CDT documented as of this encounter
--- OUTSIDE RECORDS SUMMARY | 2022-02-02 09:50 | XMS_ITS | Encounter Summary ---
:1945 Author Organization [facility] Address [address] [place] [address] Care Team Providers Name Role Phone Unavailable Primary Care Provider Unavailable Encounter Details Date Type Department Care Team Description 01/22/2018 Orders Only Division of Vascular and Lisette Terrazas, Aneurysm Splenic Endovascular Surgery in R.N. Artery (HCC) (Primary [place], [place] [address] [facility] Dx) [address] [place] [phone] Social History Tobacco Use Types Packs/Day Years [...] or relatives? How often do you attend catholic or More than 4 times per year 09/21/2021 oriental orthodox services? Do you belong to any clubs or Not asked organizations such as catholic groups, unions, fraternal or athletic groups, or [...] place to sleep or slept in a alf (including now)? Sex Assigned at Date Recorded Female 09/21/2021 10:37 AM CDT documented as of this encounter Plan of Treatment Not on filedocumented as of this encounter Visit Diagnoses Diagnosis Aneurysm Splenic Artery (HCC) - Primary documented in this encounter
--- OUTSIDE RECORDS SUMMARY | 2022-02-02 09:50 | XMS_ITS | Encounter Summary ---
:1945 Author Organization [facility] Address [address] [place] [address] Care Team Providers Name Role Phone Unavailable Primary Care Provider Unavailable Reason for Referral Outpatient (Routine) - Closed Specialty Diagnoses / Procedures Referred By Contact Refer red To Contact Vascular Medicine Diagnoses Aneurysm Splenic Artery (HCC) Dm Moyer [place] M.D. [address] [place] [phone] Referral ID Status Reason Start Date Expiration Date Visits Requ ested Visits Authorized [id number] Closed 12/15/2020 12/15/2021 1 1 Reason for Visit Reason Comments Appointment Encounter Details Date Type Department Care Team Description 12/08/2020 Clinical Communication Division of Vascular Ward Flanagan Appointment and Endovascular S, MSiobhanDSiobhan Surgery in [place] [address] [address] [place] [address] [place], [place] [phone] (Work) [phone] Social History Tobacco Use Types Packs/Day Years [...] or relatives? How often do you attend mormon or More than 4 times per year 09/21/2021 sabianism services? Do you belong to any clubs or Not asked organizations such as mormon groups, unions, fraternal or athletic groups, or [...] Phon e Number [facility] - [address] [place] [address] [place] [address] Laboratories-[facility] [address] [facility] (ABNORMAL) Basic Metabolic Panel (02/02/2021 7:49 [...] 02/02/2021 DTL Black/ mL/min/BSA 9:18 AM CDT Nigerien Comment: ----ADDITIONAL INFORMATION---- Estimated GFR calculated using [...] Phon e Number [facility] - [address] [place] [address] [place] [address] [facility] 200 [facility] CBC with Differential, Blood (02/02/2021 7:49 [...] [facility] - [address] [place], [place] [address] [place] [address] [facility] [address] documented in this encounter Visit Diagnoses Diagnosis Aneurysm Splenic Artery (HCC) - Primary documented in this encounter
--- OUTSIDE RECORDS SUMMARY | 2022-02-02 09:50 | XMS_ITS | Encounter Summary ---
:1945 Author Organization [facility] Address [address] [place] [address] Care Team Providers Name Role Phone Unavailable Primary Care Provider Unavailable Encounter Details Date Type Department Care Team Description 12/21/2020 Clinical Communication Department of Zeke Nobles, Dermatology in M.Charline, M.S. [place], [place] [address] [facility] [address] [place] [phone] Social History Tobacco Use Types Packs/Day Years [...]
--- OUTSIDE RECORDS SUMMARY | 2022-02-02 09:50 | XMS_ITS | Encounter Summary ---
:1945 Author Organization [facility] Address [address] [place] [address] Care Team Providers Name Role Phone Unavailable [...] or relatives? How often do you attend zoroastrianism or More than 4 times per year 09/21/2021 amish services? Do you belong to any clubs or Not asked organizations such as zoroastrianism groups, unions, fraternal or athletic groups, or [...] place to sleep or slept in a correction (including now)? Sex Assigned at Date Recorded [...]
--- OUTSIDE RECORDS SUMMARY | 2022-02-02 09:50 | XMS_ITS | Encounter Summary ---
:1945 Author Organization [facility] Address [address] [place] [address] Care Team Providers Name Role Phone Unavailable Primary Care Provider Unavailable Encounter Details Date Type Department Care Team Description 02/02/2021 Hospital Encounter Department of Dm Moyer Splenic Laboratory Medicine Zari Guzman Artery (HCC) and Pathology, [address] [place] [address], in [place] [phone] [phone] [place] [address] (Work) [place], [place] [phone] (Fax) [phone] Social History Tobacco Use Types Packs/Day Years [...] place to sleep or slept in a chcf (including now)? Sex Assigned at Date Recorded [...] Apply topically. 0 10/05 unit/gram powder omega 7-esd-eet-fish oil Take 1 capsule by 0 04/05 900 mg-360 mg- 455 mouth daily. mg-1,000 mg capsule vit Take 1 capsule by 0 07/10/2017 C,G-Ax-auopd-lutein-zeaxan mouth 2 (two) times a (AREDS 2) [...] M.D. LAB BLOOD ADD-ON Performing Organization Address City/State/[facility] Code Phon e Number [facility] - [address] [place], [place] [address] [facility] [place] [address] Laboratories-[facility] 200 [facility] (ABNORMAL) Basic Metabolic Panel (02/02/2021 7:49 [...] 02/02/2021 DTL Black/ mL/min/BSA 9:18 AM CDT Burundian Comment: ----ADDITIONAL INFORMATION---- Estimated GFR calculated using [...] Organization Address City/State/ZIP Code Phon e Number [facility] - [address] [place] [address] [facility] [place] [place] [address] Laboratories-[facility] 200 [facility] CBC with Differential, Blood (02/02/2021 7:49 [...] Organization Address City/State/ZIP Code Phon e Number [facility] - [address] [place], [place] [address] [facility] [place] [address] Laboratories-[facility] [address] documented in this encounter Visit Diagnoses Diagnosis Aneurysm Splenic Artery (HCC) documented in this encounter
--- OUTSIDE RECORDS SUMMARY | 2022-02-02 09:50 | XMS_ITS | Encounter Summary ---
:1945 Author Organization [facility] Address [address] [place] [address] Care Team Providers Name Role Phone Unavailable [...]
--- OUTSIDE RECORDS SUMMARY | 2022-02-02 09:50 | XMS_ITS | Encounter Summary ---
:1945 Author Organization [facility] Address [address] [place] [address] Care Team Providers Name Role Phone Unavailable [...] or relatives? How often do you attend shinto or More than 4 times per year 09/21/2021 temple services? Do you belong to any clubs or Not asked organizations such as shinto groups, unions, fraternal or athletic groups, or [...] slept in a skilled nursing (including now)? Sex Assigned at Date Recorded [...]
--- OUTSIDE RECORDS SUMMARY | 2022-02-02 09:50 | XMS_ITS | Encounter Summary ---
:1945 Author Organization [facility] Address [address] [place] [address] Care Team Providers Name Role Phone Unavailable Primary Care Provider Unavailable Encounter Details Date Type Department Care Team Description 02/19/2018 Hospital Encounter Department of Shahid Flanagan Splenic Radiology, Fady Watson M.D. Artery ([facility]) Building, in [address] [facility] [address] [place], [place] [phone] (Work) [phone] Social History Tobacco Use Types Packs/Day Years [...] Apply topically. 0 10/05 unit/gram powder omega 7-jrw-wac-fish oil Take 1 capsule by 0 04/05 900 mg-360 mg- 455 mouth daily. mg-1,000 mg capsule vit Take 1 capsule by 0 07/10/2017 C,S-On-gjvpv-lutein-zeaxan mouth 2 (two) times a (AREDS 2) [...] COMPARISON: Ultrasound of the splenic ar [facility] 12/17/2015. ?? FINDINGS: The spleen measures 12.6 cm. A periphera lly calcified splenic artery aneurysm is not significantly changed measuring 1.3 x 1.3 cm; previously 1.3 x 1.2 cm. The aneurysm remains patent. Procedure Note Дмитрий Polanco M.D. - 02/19/2018 EXAM: US ABDOMEN PELVIS VESSELS DOPPLER Exam performed with color and spectral D oppler analysis. COMPARISON: Ultrasound of the splenic ar [facility] 12/17/2015. FINDINGS: The spleen measures 12.6 [...]
--- OUTSIDE RECORDS SUMMARY | 2022-02-02 09:50 | XMS_ITS | Encounter Summary ---
:1945 Author Organization [facility] Address [address] [place] [address] Care Team Providers Name Role Phone Unavailable Primary Care Provider Unavailable Reason for Visit Reason Comments Basal Cell Carcinoma Outpatient (Routine) - Closed Specialty Diagnoses / Procedures Referred By Contact Refer red To Contact Dermatology Diagnoses Basal Cell Carcinoma Skin Other Parts Face Zeke Nobles M.D., [facility] Procedures ARACELI MOHS 1-4 sites M.S. [address] [place] [address] Referral ID Status Reason Start Date Expiration Date Visits Requ ested Visits Authorized [id number] Closed 12/17/2020 12/17/2021 1 1 Encounter Details Date Type Department Care Team Description 02/02/2021 Procedure visit Department of Jose A Lucero, Basal Ce ll Carcinoma Dermatology in M.D. Skin Other Parts Face [place], [place] [address] [facility] [address] [place] [phone] [phone] Social History Tobacco Use Types Packs/Day Years [...] slept in a care home (including now)? Sex Assigned at Date [...] Surgery: 02/02/2021 Surgeon: Dr. Jose A Lucero Guest Relations Representative: Dr. Harpreet Adam and Dr. China Oconnor Location: [facility]: Floor:16 Room:[facility] [place] Visit Type: Outpatient PostOp Diagnosis: Nodular basal cell carcinoma Anatomic Location: Right preauricular cheek Preoperative size: 0.3 x 0.4 cm [facility] number: 12 Indication(s) for Mohs Micrographic Surgery: [...] was reviewed by Dr. Yael silva at [place]. She reports that she has a history of basal cell carcinoma on the left cheek 2 years ago that has already been treated. She does not have any history of melanoma. 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 The dermatologic surgery preoperative information sheet was [...] China Oconnor MD Dermatology Resident, PGY-3 Pager: [phone] Associated attestation - Jose A Lucero M.D. [...] section. documented in this encounter Results ARACELI [facility] 1-4 sites (02/02/2021 10:30 AM CDT) Narrative Jose A Lucero M.D. - 02/02/2021 10:30 AM CDT China Oconnor M.D. ? 02/02/2021 ??3:34 PM PREOP INDICATION: REMOVAL. Date of Surgery: 02/02/2021 Surgeon: Dr. Jose A Lucero Guest Relations Representative: Dr. Harpreet Adam and Dr. China Oconnor Location: [place] ?? dg:GO ?? Floor: 16 ?? Room:[facility] [place]) Visit Type: Outpatient PostOp Diagnosis: ??Nodular basal [...] MAR Action Action Date Dose Rate Site yyrnuyeqipf-atnzwndvd-HUBQXJJvsir Given 02/02/2021 2:05 PM CDT 2 mL [...]
--- OUTSIDE RECORDS SUMMARY | 2022-02-02 09:50 | XMS_ITS | Encounter Summary ---
:1945 Author Organization [facility] Address [address] [place] [address] Care Team Providers Name Role Phone Unavailable Primary Care Provider Unavailable Encounter Details Date Type Department Care Team Description 12/21/2020 Orders Only Department of Zeke Nobles, Encounter For Preprocedural Laboratory Examination (COVID-19) (Primary Dx); Dermatology in Zari M.S. Negative COVID-19 Test (Contact With And (Suspected) Exposure To COVID-19) [place], [place] [address] [facility] [address] [place] [phone] Social History Tobacco Use Types Packs/Day Years [...] or relatives? How often do you attend islam or More than 4 times per year 09/21/2021 tenriism services? Do you belong to any clubs or Not asked organizations such as islam groups, unions, fraternal or athletic groups, or [...] RNA, V Asymptomatic (01/28/2021 9:56 AM CDT) [facility] Method Time Signature SARS-CoV-2 Swab, [...] pe rformed using the Aptima SARS-CoV-2 assay ([employer] on the SERPss tem under emergency use authorization (EUA) by the U.S. Food and Drug Administ ration. Fact sheets for this EUA assay can be fo und at the following links: For Healthcare Providers: https://www.fd a.gov/media/529574/download For Patients: https://www.fda.gov/media/ 325039/download Specimen Anatomical Collection Method Collection Time Receive d Time (Source) Location / / Volume Laterality Varies 01/28/2021 9:56 AM 3:24 (Nasopharynx) CDT PM CDT Zeke Nobles M.D., M.S. LAB MICROBIOLOGY - GENERAL O RDERABLES Performing Organization Address City/State/ZIP Code Phon e Number [facility]- [address] [place] [address] [place] [address] System [address] documented in this encounter Visit Diagnoses Diagnosis Encounter For Preprocedural Laboratory E xamination (COVID-19) - Primary Negative COVID-19 Test (Contact With And (Suspected) Exposure To COVID-19) documented in this encounter
--- OUTSIDE RECORDS SUMMARY | 2022-02-02 09:50 | XMS_ITS | Encounter Summary ---
:1945 Author Organization [facility] Address [address] [place] [address] Care Team Providers Name Role Phone Unavailable Primary Care Provider Unavailable Encounter Details Date Type Department Care Team Description 12/21/2020 Clinical Communication Department of Jose A Lucero, Dermatology in .[place], [place] 200 [address] [facility] [place] [address] [place] [phone] Social History Tobacco Use Types Packs/Day Years [...] More than 4 times per year 09/21/2021 nondenominational services? Do you belong to any clubs [...]
--- OUTSIDE RECORDS SUMMARY | 2022-02-02 09:50 | XMS_ITS | Encounter Summary ---
:1945 Author Organization [facility] Address [address] [place] [address] Care Team Providers Name Role Phone Unavailable Primary Care Provider Unavailable Reason for Referral Outpatient (Routine) - Closed Specialty Diagnoses / Procedures Referred By Contact Refer red To Contact Dermatology Diagnoses Basal Cell Carcinoma Skin Other Parts Face Zeke Nobles M.D., [facility] Procedures [facility] 1-4 sites M.S. [address] [place] [phone] Referral ID Status Reason Start Date Expiration Date Visits Requ ested Visits Authorized [id number] Closed 12/17/2020 12/17/2021 1 1 Encounter Details Date Type Department Care Team Description 12/17/2020 Orders Only Department of Zeke Nobles, Basal Cell Carcinoma Skin Other Parts Face (Primary Dx); Dermatology in [place], [place].S. Preprocedural Lab Exam; [place], [place] 200 [address] [facility] Contact With And (Suspected) Exposure To COVID-[address] [place] [phone] Social History Tobacco Use Types Packs/Day Years [...] More than 4 times per year 09/21/2021 jew services? Do you belong to any clubs or Not asked organizations such as mormonism groups, unions, Envis or athletic groups, or school groups? How [...] or slept in a fci (including now)? Sex Assigned at Date Recorded Female 09/21/2021 10:37 AM CDT documented as of this encounter Plan of Treatment Not on filedocumented as of this encounter Results [facility] 1-4 sites (02/02/2021 10:30 AM CDT) Narrative Jose A Lucero M.D. - 02/02/2021 10:30 AM CDT China Oconnor M.D. ? 02/02/2021 ??3:34 PM PREOP INDICATION: REMOVAL. Date of Surgery: 02/02/2021 Surgeon: Dr. Jose A Lucero Diesel Retrofit Designer: Dr. Harpreet Adam and Dr. China Oconnor Location: [place] ?? dg:GO ?? Floor: 16 ?? Room:DERMTX Visit Type: Outpatient PostOp Diagnosis: ??Nodular basal cell c arcinoma Anatomic Location: ??Right preauricular cheek Preoperative size: ??0.3 x 0.4 cm [facility] number: 12 Indication(s) for Mohs Micrographic [...] Component Value Ref Test Analysis Performed At [facility] Time Signature 12/31/2020 [facility] 1:37 PM CDT Participated in Martin Chan 12/31/2020 [facility] the , 1:37 PM CDT Interpretation D.OSiobhan-Pathology Fellow Report Pennie Conley M.D. 12/31/2020 [facility] electronically 1:37 PM CDT signed by I verify that I have examined all relevant slides/materials for the specimen(s) and rendered or confirmed the diagnosis. Material Received A. [id number]: Skin, Right preauricular cheek 12/31/2020 PDRM ? 2 stained slides, 5 unstained slides 1:37 PM CDT Also rec'd 1 slide ([id number]) not for interpretation. Interpretation FINAL DIAGNOSIS 12/31/2020 PDRM A. ??Skin, Right preauricular cheek, [id number], 1:37 PM CDT 11/04/2020: Nodular basal cell carcinoma, involving biopsy border Specimen Anatomical Collection Method Collection Time Receive d Time (Source) Location / / Volume Laterality Varies 12/30/2020 3:48 PM 3:48 CDT PM CDT Narrative This result has an attachment that is no t available. Zeke Nobles M.D., M.S. LAB SURG PATH ORDERABLES Performing Organization Address City/State/ZIP Code Phon e Number [facility] - [address] [place], [place] [address] [facility] [place] [address] Laboratories-[facility] [address] documented in this encounter Visit Diagnoses Diagnosis Basal Cell Carcinoma Skin Other Parts Fa ce - Primary Preprocedural Lab Exam Contact With And (Suspected) Exposure To COVID-19 Basal Cell Carcinoma Skin Other Parts Fa ce documented in this encounter
--- OUTSIDE RECORDS SUMMARY | 2022-02-02 09:50 | XMS_ITS | Encounter Summary ---
:1945 Author Organization [facility] Address [address] [place] [address] Care Team Providers Name Role Phone Unavailable [...]
--- OUTSIDE RECORDS SUMMARY | 2022-02-02 09:50 | XMS_ITS | Encounter Summary ---
:1945 Author Organization [facility] Address [address] [place] [address] Care Team Providers Name Role Phone Unavailable Primary Care Provider Unavailable Encounter Details Date Type Department Care Team Description 02/01/2021 Orders Only Department of Vascular LangAleman P.A.-C. Medicine in [place], [facility] [address] [place], [place] [address] [place] [address] [place] [address] [phone] Social History Tobacco Use Types Packs/Day Years [...] or relatives? How often do you attend methodist or More than 4 times per year 09/21/2021 quaker services? Do you belong to any clubs or Not asked organizations such as methodist groups, unions, fraternal or athletic groups, or [...] or slept in a detention (including now)? Sex Assigned at Date Recorded Female 09/21/2021 10:37 AM CDT documented as of this encounter Plan of Treatment Not on filedocumented as of this encounter Visit Diagnoses Not on filedocumented in this encounter
--- OUTSIDE RECORDS SUMMARY | 2022-02-02 09:50 | XMS_ITS | Encounter Summary ---
:1945 Author Organization [facility] Address [address] [place] [address] Care Team Providers Name Role Phone Unavailable Primary Care Provider Unavailable Reason for Visit Outpatient (Routine) - Closed Specialty Diagnoses / Procedures Referred By Contact Refer red To Contact Diagnoses Aneurysm Splenic Artery (HCC) Dm Moyer M.D. [facility] Procedures US Abdomen Pelvis Vessels Limited Doppler US Mesenteric Artery [address] [place] [phone] Referral ID Status Reason Start Date Expiration Date Visits Requ ested Visits Authorized [id number] Closed 12/15/2020 12/15/2021 1 1 Encounter Details Date Type Department Care Team Description 02/02/2021 Hospital Encounter Department of Dm Moyer [facility] Splenic Radiology, Fady Guzman M.D. Artery (HCC) [facility], in [address] [place] [phone] [place] [address] [place], [place] (Work) [phone] [phone] Social History Tobacco Use Types Packs/Day Years [...] More than 4 times per year 09/21/2021 church services? Do you belong to any clubs [...] Apply topically. 0 10/05 unit/gram powder omega 2-rga-rvh-fish oil Take 1 capsule by 0 04/05 900 mg-360 mg- 455 mouth daily. mg-1,000 mg capsule UNABLE TO FIND Med Name: Edom eye 0 drops vit Take 1 capsule by 0 07/10/2017 C,O-Zl-ddqxe-lutein-zeaxan mouth 2 (two) times a (AREDS 2) [...]
--- OUTSIDE RECORDS SUMMARY | 2022-02-02 09:50 | XMS_ITS | Encounter Summary ---
:1945 Author Organization [facility] Address [address] [place] [address] Care Team Providers Name Role Phone Unavailable Primary Care Provider Unavailable Reason for Referral Outpatient (Routine) - Authorized Specialty Diagnoses / Procedures Referred By Contact Refer red To Contact Vascular Medicine Yas Peerz P.A. -C. [facility] [address] [place] [phone] Referral ID Status Reason Start Date Expiration Date Visits V isits Requested Authorized [id number] Authorized 02/02/2021 02/02/2022 1 1 Outpatient (Routine) - Authorized Specialty Diagnoses / Procedures Referred By Contact Refer red To Contact Diagnoses Aneurysm Splenic Artery (HCC) Yas Perez P.A.-C. [facility] Procedures US Abdomen Pelvis Vessels Limited Doppler [address] [place] [phone] Referral ID Status Reason Start Date Expiration Date Visits V isits Requested Authorized [id number] Authorized 02/02/2021 02/02/2022 1 1 Reason for Visit Outpatient (Routine) - Closed Specialty Diagnoses / Procedures Referred By Contact Refer red To Contact Vascular Medicine Diagnoses Aneurysm Splenic Artery (HCC) Dm Moyer [facility] [place] [address] [place] [phone] Referral ID Status Reason Start Date Expiration Date Visits Requ ested Visits Authorized [id number] Closed 12/15/2020 12/15/2021 1 1 Encounter Details Date Type Department Care Team Description 02/02/2021 Comprehensive Visit Department of Yas Perez Splenic Artery (HCC) (Primary Dx); Vascular Medicine R, P.A.-C. Hypertension Essential Primary; in [place] [address] [facility] Hyperlipidemia On Treatment [place], [place] 200 [facility] [address] [place], [place] [phone] (Work) [phone] Social History Tobacco Use Types Packs/Day Years [...] or relatives? How often do you attend quaker or More than 4 times per year 09/21/2021 samaritan services? Do you belong to any clubs or Not asked organizations such as quaker groups, unions, fraternal or athletic groups, or [...] place to sleep or slept in a long-term (including now)? Sex Assigned at Date Recorded [...] REFERRAL SOURCE Dm Moyer M.D. [address] [place] [address] SUBJECTIVE CHIEF COMPLAINT / REASON FOR VISIT Surveillance of splenic artery aneurysm HISTORY OF PRESENT ILLNESS Ms. Layton is a 75 y.o. female that I am seeing today for surveillance of splenic artery aneurysm. She came to the [facility] vascular [facility] initially in 2009 after [...] come with a bandage on the right religion from a basal cell carcinoma that was [...] exception of a bandage over the right religion. Eyes: No injection and no drainage seen. [...] Name Type Priority Associated Diagnoses Order S [facility] Lipid Panel Lab Routine Hyperlipidemia On Expected: [...] Name Type Priority Associated Diagnoses Order S [facility] Vascular Medicine Outpatient Referral Routine Exp ected: office visit 02/02/2023 (clinic) (Approximate), Expires: 02/03/2024 documented as of this encounter Visit Diagnoses Diagnosis Aneurysm Splenic Artery (HCC) - Primary Hypertension Essential Primary Hyperlipidemia On Treatment documented in this encounter
--- OUTSIDE RECORDS SUMMARY | 2022-02-02 09:50 | XMS_ITS | Encounter Summary ---
:1945 Author Organization [facility] Address [address] [place] [address] Care Team Providers Name Role Phone Unavailable Primary Care Provider Unavailable Encounter Details Date Type Department Care Team Description 01/28/2021 Hospital Encounter Department of Zeke Nobles er For Preprocedural Laboratory Examination (COVID-19); Laboratory Medicine [place] Campuzano, M.S . Negative COVID-19 Test (Contact With And (Suspected) Exposure To COVID-19) in [place], [facility] [address] [place], [place] [address] [place] [address] [place], [place] [phone] (Work) [phone] Social History Tobacco Use Types Packs/Day Years [...] More than 4 times per year 09/21/2021 jehovah's witness services? Do you belong to any clubs [...] Apply topically. 0 10/05 unit/gram powder omega 9-gja-vnt-fish oil Take 1 capsule by 0 04/05 900 mg-360 mg- 455 mouth daily. mg-1,000 mg capsule vit Take 1 capsule by 0 07/10/2017 C,Q-Tz-rdmbq-lutein-zeaxan mouth 2 (two) times a (AREDS 2) [...] RNA, V Asymptomatic (01/28/2021 9:56 AM CDT) [facility] Method Time Signature SARS-CoV-2 Swab, 01/28/2021 MKTO [...] pe rformed using the Aptima SARS-CoV-2 assay ([employer] on the [employer] tem under emergency use authorization (EUA) by the U.S. Food and Drug Administ ration. Fact sheets for this EUA assay can be fo und at the following links: For Healthcare Providers: https://www.fd a.gov/media/986986/download For Patients: https://www.fda.gov/media/ 623178/download Specimen Anatomical Collection Method Collection Time Receive d Time (Source) Location / / Volume Laterality Varies 01/28/2021 9:56 AM 3:24 (Nasopharynx) CDT PM CDT Zeke Nobles M.D., M.S. LAB MICROBIOLOGY - GENERAL O RDERABLES Performing Organization Address City/State/ZIP Code Phon e Number [facility]- [address] [place] [address] [place] [address] System [address] documented in this encounter Visit Diagnoses Diagnosis Encounter For Preprocedural Laboratory E xamination (COVID-19) Negative COVID-19 Test (Contact With And (Suspected) Exposure To COVID-19) documented in this encounter Additional Health Concerns Infection Onset Date Last Indicated Resolved Time COVID19 Pending 01/28/2021 01/28/2021 01/28/2021 11:52 PM CDT documented as of this encounter
--- OUTSIDE RECORDS SUMMARY | 2022-02-02 09:50 | XMS_ITS | Encounter Summary ---
:1945 Author Organization [facility] Address [address] [place] [address] Care Team Providers Name Role Phone Unavailable [...] place to sleep or slept in a halfway (including now)? Sex Assigned at Date Recorded [...]
--- OUTSIDE RECORDS SUMMARY | 2022-02-02 09:50 | XMS_ITS | Encounter Summary ---
:1945 Author Organization [facility] Address [address] [place] [address] Care Team Providers Name Role Phone Unavailable [...] More than 4 times per year 09/21/2021 denominational services? Do you belong to any clubs [...] place to sleep or slept in a assisted (including now)? Sex Assigned at Date Recorded [...] images can be found on the encounter jorid t produced images. Provider Not In System IMG NON RAD IMAGING PROCEDUR ES Performing Organization Address City/State/ZIP Code Phon e Number [facility] NA documented in this encounter Visit Diagnoses Not on filedocumented in this encounter
--- OUTSIDE RECORDS SUMMARY | 2022-02-02 09:50 | XMS_ITS | Encounter Summary ---
:1945 Author Organization [facility] Address [address] [place] [address] Care Team Providers Name Role Phone Unavailable Primary Care Provider Unavailable Reason for Visit Reason Onset Date Comments Test only 01/15/2018 Encounter Details Date Type Department Care Team Description 01/15/2018 Clinical Communication Division of Vascular Ward Flanagan ustavo Test only and Endovascular S, M.D. Surgery in [address] [address] [address] [place] [address] [place], [place] [phone] (Work) [phone] Social History Tobacco Use Types Packs/Day Years [...] or relatives? How often do you attend gnosticist or More than 4 times per year 09/21/2021 anabaptism services? Do you belong to any clubs or Not asked organizations such as gnosticist groups, unions, fraternal or athletic groups, or [...]
--- OUTSIDE RECORDS SUMMARY | 2022-02-02 09:50 | XMS_ITS | Encounter Summary ---
:1945 Author Organization [facility] Address [address] [place] [address] Care Team Providers Name Role Phone Unavailable Primary Care Provider Unavailable Encounter Details Date Type Department Care Team Description 12/17/2020 Lab RST RO Zeke Baum, Basal Cell Carcinoma Skin [address] [facility] MMonty, [place] [address] [place] [phone] (Wo rk) Social History Tobacco Use Types [...] or relatives? How often do you attend holiness or More than 4 times per year 09/21/2021 alevism services? Do you belong to any clubs or Not asked organizations such as holiness groups, unions, fraternal or athletic groups, or [...] Component Value Ref Test Analysis Performed At [facility] Range Method Time Signature 12/31/2020 PDR 1:37 PM CDT Participated in Martin Chan 12/31/2020 PDR the Jr, 1:37 PM CDT Interpretation D.O.-Pathology Fellow Report Pennie Conley M.D. 12/31/2020 PDR electronically 1:37 PM CDT signed by I verify that I have examined all relevant slides/materials for the specimen(s) and rendered or confirmed the diagnosis. Material Received A. [id number]: Skin, Right preauricular cheek 12/31/2020 PDRM ? 2 stained slides, 5 unstained slides 1:37 PM CDT Also rec'd 1 slide ([id number]) not for interpretation. Interpretation FINAL DIAGNOSIS 12/31/2020 PDR A. ??Skin, Right preauricular cheek, [id number], 1:37 PM CDT 11/04/2020: Nodular basal cell [...] Code Phon e Number [facility] - [address] [place], [place] [address] [facility] [place] [address] Laboratories-[facility] [address] documented in this encounter Visit Diagnoses Diagnosis Basal Cell Carcinoma Skin Other Parts Fa ce documented in this encounter
--- NOTE | 2022-02-02 10:15 | CRLHL7_ITS ---
For Patients: As a result of the Cures Act, medical imaging exams and procedure reports are released immediately into your electronic medical record. You may view this report before your referring provider. If you have questions, please contact your health care provider. BILATERAL SCREENING MAMMOGRAM WITH COMPUTER-AIDED DETECTION AND TOMOSYNTHESIS CLINICAL HISTORY: Screening mammogram. TECHNIQUE: BILATERAL screening mammogram with tomosynthesis. Computer-aided detection was utilized. COMPARISON FILM: Mammograms 02/01/2021 and 01/27/2020. BREAST COMPOSITION: There are scattered areas of fibroglandular density. FINDINGS: There are scattered fibroglandular densities similar to prior. RIGHT breast: Mild architectural distortion in the outer upper RIGHT breast approximately 8 cm from the nipple only seen on CC view. The finding is not definitely seen on MLO view. Stable circumscribed masses in the RIGHT breast unchanged compared to mammograms dating back to 2018. Benign calcifications in the RIGHT breast. LEFT breast: Stable circumscribed mass in the outer lower LEFT breast unchanged dating back to at least 2018. Benign-appearing calcifications in the LEFT breast. No new or suspicious mass, architectural distortion or other evidence of malignancy. IMPRESSION: Asymmetry in the upper outer RIGHT breast seen only on CC view. Recommend ML, spot compression RIGHT CC, and ultrasound for further evaluation. ASSESSMENT: BI-RADS Category 0: Incomplete: Need Additional Imaging Evaluation and/or Prior Mammograms for Comparison The [facility] will contact the patient for follow-up. A lay language report of this examination will be provided to the patient. Maxwell Akins M.D. Diagnostic/Musculoskeletal Radiologist [email or web address] PT/Dictated by: Maxwell Akins MD @ 02/03/2022 8:33:00 AM (Electronically Signed)
== END 2022-02-02 09:44 | disposition home or self-care (01) ==
LOC: MAMMO 09:46
PROVIDERS: PCP Family Medicine; Visit Provider Family Medicine
DX: Z12.31 Encounter for screening mammogram for malignant neoplasm of breast (principal); N63.20 Unspecified lump in the left breast, unspecified quadrant
CPT/HCPCS: 77063; 77067

== ENCOUNTER 2022-02-11 09:16 | Outpatient (CLI) | payer OTHER, SELFPAY ==
--- NOTE | 2022-02-11 09:45 | CRLHL7_ITS ---
For Patients: As a result of the Cures Act, medical imaging exams and procedure reports are released immediately into your electronic medical record. You may view this report before your referring provider. If you have questions, please contact your health care provider. RIGHT DIGITAL DIAGNOSTIC MAMMOGRAM WITH TOMOSYNTHESIS, 02/11/2022 CLINICAL HISTORY: RIGHT breast mass/asymmetry. COMPARISON: 02/02/2022. TECHNIQUE: Digital RIGHT mammogram in two projections. BREAST COMPOSITION: Scattered fibroglandular densities. FINDINGS: 3D spot-compression CC and 3D true lateral RIGHT breast mammogram submitted. Decreased conspicuity of asymmetric density compared to the prior study. No underlying suspicious mass or architectural distortion. Benign calcifications. IMPRESSION: No evidence of malignancy. RECOMMENDATIONS: Annual BILATERAL screening mammography. BI-RADS: 2. Benign findings. Results and recommendations discussed with the patient. Dictated by Felix Espitia MD @ 02/11/2022 12:05:35 PM JR/Dictated by: Felix Espitia MD @ 02/11/2022 12:05:00 PM (Electronically Signed)
--- OUTSIDE RECORDS SUMMARY | 2022-02-11 10:35 | XMS_ITS | Encounter Summary ---
:1945 Author Organization [place] Address [facility] [place] [address] Care Team Providers Name Role Phone Robert Jones MD Primary Care Provider Unavailable Reason for Referral - Closed Specialty Diagnoses / Procedures Referred By Contact Refer red To Contact Diagnoses Splenic artery aneurysm (H) Marisela Torres MD Procedures CT Abdomen w/o contrast [address] [address] Referral ID Status Reason Start Date Expiration Date Visits Requ ested Visits Authorized [id number] Closed 03/05/2013 09/01/2013 1 1 Reason for Visit Reason Comments Consult Consultation Spenic Artery A neurysm Encounter Details Date Type Department Care Team Description 03/05/2013 Office Visit Surgery Interventional Marisela Torres, Splenic artery Radiology aneurysm (H) [place] [address] (Carmelina johnson Dx) Building [facility] [address] Floor, Clinic [address] [place] [address] [place] [address] [place], [place] [phone] [address] (Work) [phone] Social History Tobacco Use Types Packs/Day Years [...] CDT Primary Care Physician: Robert Gray in [facility]. Reason for Consultation: Opinion on pt's splenic artery aneurysm. Brief History: Ms. Layton is a 67 y/o female who is being seen in the interventional radiology clinic at the [facility] for evaluation of a splenic artery aneurysm. Per her report, she was aware of this finding dating back to 2009. She has had prior imaging at [facility] and [place], [place]. 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 She has been seen at 2 other locations ([facility]) and [facility], and has essentially been told that no [...] a CT April, of the aneurysm from [facility] but I do not have those images. [...] artery documented in this encounter Care Teams Clinic Cma Relationship Specialty Start Date End Date Robert Jones MD PCP - General Internal Medicine 02/19/13 09/27/20 documented as of this encounter
--- OUTSIDE RECORDS SUMMARY | 2022-02-11 10:35 | XMS_ITS | Encounter Summary ---
:1945 Author Organization Mobile Address [facility] [place] [address] Care Team Providers Name Role Phone Robert Jones MD Primary Care Provider Unavailable Encounter Details Date Type Department Care Team Description 03/07/2013 Results Only Surgery Clinic Marisela Torres MD [facility] [address] [facility] [address] [place] [address] 1[address] Floor, Clinic [address] [place] [address] [place] [phone] Social History Tobacco Use Types Packs/Day Years Used Date Never Smoker Alcohol Use Standard Drinks/Week Comments Yes 0 (1 standard drink = 0.6 oz pure alcoho l) Sex Assigned at Date Recorded Not on file documented as of this encounter Plan of Treatment Scheduled Orders Name Type Priority Associated Diagnoses Order S chedule CT Digital Archive-Non Imaging Order ed: 03/07/2013 Mobile documented as of this encounter Visit Diagnoses Not on filedocumented in this encounter Care Teams Technical Programs Manager Relationship Specialty Start Date End Date Robert Jones MD PCP - General Internal Medicine 02/19/13 09/27/20 documented as of this encounter
--- OUTSIDE RECORDS SUMMARY | 2022-02-11 10:35 | XMS_ITS | Encounter Summary ---
:1945 Author Organization [place] Address [facility]0 [facility] [place] [address] Care Team Providers Name Role Phone Robert Jones MD Primary Care Provider Unavailable Encounter Details Date Type Department Care Team Description 02/17/2014 Care Coordination P Interventional Sarah Howard pharmaceutical sales Consult Cl inic [phone] [facility] (Work) [address] [phone] Social History Tobacco Use [...] [facility] for. Informed her that we'd like to have a CT And f/u appt. She informs me that she was informed by Dr Torres that she can f/u via US at the [facility] in which she is doing. She states [...] on filedocumented in this encounter Care Teams Pulverizer Operator Relationship Specialty Start Date End Date Robert Jones MD PCP - General Internal Medicine 02/19/13 09/27/20 documented as of this encounter
--- OUTSIDE RECORDS SUMMARY | 2022-02-11 10:35 | XMS_ITS | Encounter Summary ---
:1945 Author Organization [employer] Address [facility]0 [facility] [place] [address] Care Team Providers Name Role Phone Robert Jones MD Primary Care Provider Unavailable Encounter Details Date Type Department Care Team Description 03/06/2013 Telephone [facility] Interventional Radiology Sarah Hunter, RN Consult Clinic [address] [place], [place] [phone] Social History Tobacco Use Types Packs/Day [...] she has a tentative CT angio with [facility] that is coming up in Apr and [...] But if she still wants to see [facility], then that's o.k as we always encourage [...] on filedocumented in this encounter Care Teams Welder/Fitter Relationship Specialty Start Date End Date Robert Jones MD PCP - General Internal Medicine 02/19/13 09/27/20 documented as of this encounter
--- OUTSIDE RECORDS SUMMARY | 2022-02-11 10:35 | XMS_ITS | Encounter Summary ---
:1945 Author Organization [place] Address [address] [place] [address] Care Team Providers Name Role Phone Zeynep Keller MD Primary Care Provider [phone] Encounter Details Date Type Department Care Team [...] 12:00 AM R esults for this VIEWS AUDIO PRODUCTION INSTRUCTOR procedure are i n the results section. documented in this encounter Results XR Foot Right G/E 3 Views (04/09/2000 12:00 AM AUDIO PRODUCTION INSTRUCTOR) Anatomical Region Laterality Modality Foot, Ankle Right Other Specimen (Source) Anatomical Location Collection Method / Collectio n Time Received Time / Laterality Volume Narrative 04/09/2000 12:00 AM AUDIO PRODUCTION INSTRUCTOR See Historical Hospital Medical Record f or documentation Procedure Note Provider, Historical - 10/27/2020Formatt ing of this note might be different from the original. See Historical Hospital Medical Record f or documentation Historical Provider IMG DIAGNOSTIC IMAGING ORDER DIPIKA documented in this encounter Visit Diagnoses Not on filedocumented in this encounter Care Teams Medical Authorization Specialist Relationship Specialty Start Date End Date Zeynep Keller MD PCP - General Family Medicine 09/28/[address] [address] documented as of this encounter
--- OUTSIDE RECORDS SUMMARY | 2022-02-11 10:35 | XMS_ITS | Encounter Summary ---
:1945 Author Organization [facility] Address [address] [place] [address] Care Team Providers Name Role Phone Unavailable [...] or relatives? How often do you attend restorationism or More than 4 times per year 09/21/2021 hoahaoism services? Do you belong to any clubs or Not asked organizations such as restorationism groups, unions, fraternal or athletic groups, or [...] or slept in a usp (including now)? Sex Assigned at Date Recorded [...]
--- OUTSIDE RECORDS SUMMARY | 2022-02-11 10:35 | XMS_ITS | Encounter Summary ---
:1945 Author Organization [facility] Address [address] [place] [address] Care Team Providers Name Role Phone Unavailable Primary Care Provider Unavailable Encounter Details Date Type Department Care Team Description 02/10/2022 Clinical Communication Department of Neurology Sneha Oneil, in [facility] clayton Hameed, M.P.H. [address] [place] [address] [address] [place], [place] [phone] Social History Tobacco Use Types Packs/Day Years [...] or relatives? How often do you attend yazidi or More than 4 times per year 09/21/2021 synagogue services? Do you belong to any clubs or Not asked organizations such as yazidi groups, unions, fraternal or athletic groups, or [...] a [place] [facility] (including now)? Education Answer Date Recorded What is the highest level of school Master's degree (e.g., M A, MS, 09/21/2021 you have completed or the highest Cecil, MEd, ESTHETICIAN FACIALIST, ARMANDO) degree you have received? Sex Assigned at Date Recorded Female 09/21/2021 10:37 AM CDT documented as of this encounter Miscellaneous Notes Telephone Encounter - Antonietta Franklin - 02/10/2022 2:43 PM CDT Reason for Communication: Joyce is calling in from [facility] saying that she had sent a referral to see Dr. Oneil on 02/01/22 and again on 02/08/22. Patient keeps calling them and saying we have not received the referral. Please call Joyce back today. Current Can Nursing/Provider leave a detailed message?: no Did the patient refuse triage through Nurse line? (for symptom based concerns): na Action Needed: Please advise Name of Medication (if relevant): na Please send all scheduling replies to scheduling pool. documented in this encounter Plan of Treatment Not on filedocumented as of this encounter Visit Diagnoses Not on filedocumented in this encounter
--- OUTSIDE RECORDS SUMMARY | 2022-02-11 10:35 | XMS_ITS | Clinical Summary ---
:1945 Author Organization [place] Address [address] [place] [address]. [place] [address] Care Team Providers Name Role Phone Zeynep Keller MD Primary Care Provider [phone] Allergies Active Allergy Reactions Severity Noted Date [...] Address T ype Group Dates MEDICARE MEDICARE [id number] 2012-Pr [phone] Medic are esent [id number] [place] [address] [facility] [id number] 2020-Pre [phone]OX HMO MEDICARE SUPP SR sent [phone] [facility] [place] [address] Care Teams Freezer Assistant Relationship Specialty Start Date End Date Zeynep Keller MD PCP - General Family Medicine 09/28/[address] [address]
--- OUTSIDE RECORDS SUMMARY | 2022-02-11 10:35 | XMS_ITS | Encounter Summary ---
:1945 Author Organization [facility] Address [address] [place] [address] Care Team Providers Name Role Phone Unavailable [...] More than 4 times per year 09/21/2021 scientology services? Do you belong to any clubs [...]
--- OUTSIDE RECORDS SUMMARY | 2022-02-11 10:35 | XMS_ITS | Encounter Summary ---
:1945 Author Organization [facility] Address [address] [place] [address] Care Team Providers Name Role Phone Unavailable Primary Care Provider Unavailable Reason for Visit Reason Comments Pre-visit Intake Encounter Details Date Type Department Care Team Description 11/09/2021 Clinical Communication Visit Review in Pr e-visit Intake [place], [place] [address] [place] [address] Social History Tobacco Use Types [...] or relatives? How often do you attend sikh or More than 4 times per year 09/21/2021 faith services? Do you belong to any clubs or Not asked organizations such as sikh groups, unions, fraternal or athletic groups, or [...] have completed or the highest Cecil, MEd, FLOWER PLANTER, ARMANDO) degree you have received? Sex Assigned at Date Recorded Female 09/21/2021 10:37 AM CDT documented as of this encounter Plan of Treatment Not on filedocumented as of this encounter Visit Diagnoses Not on filedocumented in this encounter
--- OUTSIDE RECORDS SUMMARY | 2022-02-11 10:35 | XMS_ITS | Clinical Summary ---
:1945 Author Organization [facility] Address [address] [place] [address] Care Team Providers Name Role Phone Unavailable Primary Care Provider Unavailable Source Comments Patient records contain information from all sites at [facility]. For routine questions regarding patient records, call [phone] during business hours, M-F 8:00 AM - 5:00 PM Central Time. Record requests for emergency care only can be directed to [phone] at any time.[facility] Allergies Active Allergy Reactions Severity Noted Date [...] Take by mouth. 0 04/11/2006 Active omega 3-myz-ziz-fish oil Take 1 capsule 0 04/20/2012 Active [...] suspension pain. UNABLE TO FIND Med Name: Ballou 0 Active eye drops aspirin 81 mg [...] Take 1 capsule 0 07/10/2017 Acti ve C,S-Dd-dqduy-lutein-zeax by mouth 2 (two) an (AREDS 2) [...] Encounters Date Type Specialty Care Team Description 02/10/2022 Clinical Communication Neurology Sneha Oneil M .D., M.P.H. from Last 3 Months Family History Medical History Relation Name Comments Anesthesia problems Brother Colton Rojas Difficult in tubation [place] Arthritis [facility] Colon polyps Brother [facility] Diabetes Brother Colton [facility] Hyperlipidemia Brother Colton [facility] Hypertension Brother [facility] Kidney disease [facility] Parkinson disease Brother [facility] Skin cancer Brother [facility] Sleep apnea Brother [facility] Alcohol abuse Father Bipin Layton Stopped drink ing around age 60 Anxiety disorder Father Bipin Layton Arthritis Father Bipin Layton Hypertension Father Bipin Layton Parkinson disease Father Bipin Layton Stroke Father Bipin Layton Breast cancer Father's Sister Afshan Alcohol abuse Maternal Grandfather Claus Collier He bef ore I was Cristine Sr. born, but he was a bootlegger Coronary artery disease Maternal Grandfather Claus Collier d of heart attack Cristine Sr. in 1940's Arthritis Mother Sarah Layton Colon polyps Mother Sarah Colunga Colon section [place] removed due to cancerous polyp Coronary artery disease Mother Sarah Colunga of heart attack [place] in 2005 Hypertension Mother Sarah Layton Migraines Mother Sarah Colunga [place] Osteoporosis Mother Sarah Colunga [place] Transient ischemic attack Mother Sarah Layton Breast cancer Mother's Sister Lizbeth Lawson Alcohol abuse Paternal Grandfather Colton Layton Sr. befor e I was born Colon cancer Paternal Grandfather Colton Layton Sr. Bleeding Disorder Paternal Grandmother Elin Hanley from blood loss [place] in childbirth approx. 1920 Relation Name Status Comments Brother Colton Layton Father Bipin Layton Father's Sister Afshan Maternal Grandfather Claus Colunga Sr. Maternal Grandmother Sarah Colunga Mother Sarah Layton Mother's Sister Lizbeth Lawson Paternal Grandfather Colton Layton Sr. Paternal Grandmother Elin Han[place] Social History Tobacco Use Types Packs/Day Years [...] have completed or the highest Cecil, MEd, BACK CLOSER, ARMANDO) degree you have received? Sex Assigned [...] Code Phon e Number IIMS IIMS NA from Last 3 Months Insurance Payer Benefit Plan / Subscriber ID Effective Phone Address T e Group Dates [facility] [id number] 2021-Pres [phone] [address] PPO ent [address] [place] [address]
--- OUTSIDE RECORDS SUMMARY | 2022-02-11 10:35 | XMS_ITS | Encounter Summary ---
:1945 Author Organization [place] Address [facility] [place] [address] Care Team Providers Name Role Phone Robert Jones MD Primary Care Provider Unavailable Encounter Details Date Type Department Care Team Description 03/07/2013 Results Only Surgery Clinic Marisela Torres MD [facility] [address] [facility] [address] [place] [address] 1st Floor, Clinic [address] [place] [address] [place] [phone] Social History Tobacco Use Types Packs/Day Years Used Date Never Smoker Alcohol Use Standard Drinks/Week Comments Yes 0 (1 standard drink = 0.6 oz pure alcoho l) Sex Assigned at Date Recorded Not on file documented as of this encounter Plan of Treatment Scheduled Orders Name Type Priority Associated Diagnoses Order S chedule CT Digital Archive-Non Imaging Order ed: 03/07/2013 [facility] documented as of this encounter Visit Diagnoses Not on filedocumented in this encounter Care Teams Bulk Delivery Driver Relationship Specialty Start Date End Date Robert Jones MD PCP - General Internal Medicine 02/19/13 09/27/20 documented as of this encounter
--- OUTSIDE RECORDS SUMMARY | 2022-02-11 10:35 | XMS_ITS | Encounter Summary ---
:1945 Author Organization [facility] Address [facility] [place] [address] Care Team Providers Name Role Phone Robert Jones MD Primary Care Provider Unavailable Encounter Details Date Type Department Care Team Description 03/07/2013 Results Only Surgery Clinic Marisela Torres MD [facility] [address] [facility] [address] [place] [address] 1st Floor, Clinic [address] [place] [address] [place] [phone] Social History Tobacco Use Types Packs/Day Years Used Date Never Smoker Alcohol Use Standard Drinks/Week Comments Yes 0 (1 standard drink = 0.6 oz pure alcoho l) Sex Assigned at Date Recorded Not on file documented as of this encounter Plan of Treatment Scheduled Orders Name Type Priority Associated Diagnoses Order S chedule CT Digital Archive-Non Imaging Order ed: 03/07/2013 [place] documented as of this encounter Visit Diagnoses Not on filedocumented in this encounter Care Teams Rotary Soil Stabilizer Operator Relationship Specialty Start Date End Date Robert Jones MD PCP - General Internal Medicine 02/19/13 09/27/20 documented as of this encounter
--- OUTSIDE RECORDS SUMMARY | 2022-02-11 10:35 | XMS_ITS | Encounter Summary ---
:1945 Author Organization [place] Address [facility] [place] [address] Care Team Providers Name Role Phone Zeynep Keller MD Primary Care Provider [phone] Reason for Referral Diagnostic Imaging XR (Routine) - Closed Specialty Diagnoses / Procedures Referred By Contact Refer red To Contact Diagnoses Screening for heart disease Self, ReferredMD Procedures Radiologist Consult For Cardiology Referral ID Status Reason Start Date Expiration Date Visits Requ ested Visits Authorized [id number] Closed 09/22/2020 09/22/2021 [address] Scan (Routine) - Denied Specialty Diagnoses / Procedures Referred By Contact Refer red To Contact Cardiology Diagnoses Screening for heart disease Self, MD Herminio Tarango Cv Ct Procedures CT Coronary Calcium Scan [address] [facility] [address] [place] [phone] Phone: Referral ID Status Reason Start Date Expiration Date Visits Requ ested Visits Authorized [id number] Denied 09/22/2020 09/22/2021 1 0 Reason for Visit Diagnostic Imaging CT Scan (Routine) - Denied Specialty Diagnoses / Procedures Referred By Contact Refer red To Contact Cardiology Diagnoses Screening for heart disease Ruben, ReferredMD [facility] Procedures CT Coronary Calcium Scan [address] [facility] [address] [place] [phone] Phone: Referral ID Status Reason Start Date Expiration Date Visits Requ ested Visits Authorized [id number] Denied 09/22/2020 09/22/2021 1 0 Encounter Details Date Type Department Care Team Description 09/28/2020 Hospital Encounter [facility] Zeynep Keller Screening for heart [facility] MD Ericka disease [facility] [address] [facility] [address] [facility] [address] [place], [place] [phone] Social History Tobacco Use Types Packs/Day Years [...] inciden t. Coronary calcification was analyzed using [employer] calcium scoring software. Scan protocol was optimized [...] 1.3% per year (Penny Ulloa et al. [facility], 2007; 4 [phone]:378-402). The more calcium is [...] inciden t. Coronary calcification was analyzed using [employer] calcium scoring software. Scan protocol was optimized [...] 1.3% per year (Penny Ulloa et al. [facility], 2007; 4 9:378-402). The more calcium is [...] conditions documented in this encounter Care Teams Front Desk Representative Relationship Specialty Start Date End Date Zeynep Keller MD PCP - General Family Medicine 09/28/[address] [address] documented as of this encounter
--- OUTSIDE RECORDS SUMMARY | 2022-02-11 10:35 | XMS_ITS | Encounter Summary ---
:1945 Author Organization [facility] Address [address] [place] [address] Care Team Providers Name Role Phone Unavailable Primary Care Provider Unavailable Reason for Referral Outpatient (Routine) - Pending Review Specialty Diagnoses / Procedures Referred By Contact Refer red To Contact Diagnoses Goiter Multinodular Nontoxic Wild Coelho M.D. Procedures FNA Neck [address] [place], [place] [phone] Referral ID Status Reason Start Date Expiration Date Visits V isits Requested Authorized [id number] Pending 11/10/2021 11/10/2022 1 1 Review Reason for Visit Reason Comments Thyroid Nodule END Thyroid USG Outpatient (Routine) - Closed Specialty Diagnoses / Procedures Referred By Contact Refer red To Contact Diagnoses Nodule Thyroid Angelita Gallego M.D. [facility] Procedures END Thyroid USG [address] [place] [phone] Referral ID Status Reason Start Date Expiration Date Visits Requ ested Visits Authorized [id number] Closed 11/10/2021 11/10/2022 1 1 Encounter Details Date Type Department Care Team Description 11/10/2021 Procedure visit Division of Angelita Gallego M .D. [address] [place] [phone] Goiter Multinodular Nontoxic (Primary Dx ); Endocrinology in Wild Coelho M.D. [address] [place] [phone] Nodule Thyroid [place], [place] [address] [place] [phone] Social History Tobacco Use Types Packs/Day Years [...] More than 4 times per year 09/21/2021 scientologist services? Do you belong to any clubs [...] have completed or the highest Cecil, MEd, SEPTIC TANK INSTALLER, ARMANDO) degree you have received? Sex Assigned [...] Name Priority Date/Time Associated Diagnosis Comme nts RI FNA BX W/US GDN Routine 11/10/2021 3:00 PM Goiter Multinodu lar Results for this 1ST LES CDT Nontoxic procedure are i n the results section. CYTOLOGY FINE Routine 11/10/2021 2:33 PM Nodule Thyroid Result s for this NEEDLE ASPIRATION CDT procedure are in (INCLUDES CORE the results BIOPSIES section. documented in this encounter Results RI FNA BX W/US GDN 1ST LES (11/10/2021 [...] Component Value Ref Test Analysis Performed At [facility] Range Method Time Signature 11/11/2021 DTL [...] Organization Address City/State/ZIP Code Phon e Number [facility] - [address] [place], [place] [address] [facility] [place] [address] Laboratories-[facility] [address] [...]
--- OUTSIDE RECORDS SUMMARY | 2022-02-11 10:35 | XMS_ITS | Encounter Summary ---
:1945 Author Organization [facility] Address [address] [place] [address] Care Team Providers Name Role Phone Unavailable Primary Care Provider Unavailable Encounter Details Date Type Department Care Team Description 11/10/2021 Hospital Encounter Department of JuliánAngelita walton, Nodule Thyroid Laboratory Medicine and M.D. Pathology, [address] [phone] [place] [address] [place], [place] (Work) [phone] Social History Tobacco Use Types Packs/Day Years [...] or relatives? How often do you attend druze or More than 4 times per year 09/21/2021 voodoo services? Do you belong to any clubs or Not asked organizations such as druze groups, unions, fraternal or athletic groups, or [...] for the very basics like Not h caols at all 09/21/2021 food, housing, medical care, [...] or slept in a assisted (including now)? Education Answer Date Recorded What is the highest level of school Master's degree (e.g., M A, MS, 09/21/2021 you have completed or the highest Cecil, MEd, MORTGAGE ORIGINATOR, ARMANDO) degree you have received? Sex Assigned [...] Apply topically. 0 10/05 unit/gram powder omega 0-xpu-ijc-fish oil Take 1 capsule by 0 04/05 900 mg-360 mg- 455 mg-1,000 mouth daily. mg capsule UNABLE TO FIND Med Name: Industry eye 0 drops vit Take 1 capsule by 0 07/10/2017 C,S-Je-injfm-lutein-zeaxan mouth 2 (two) times (AREDS 2) 250-90-40-1 [...] Organization Address City/State/ZIP Code Phon e Number [facility] - [address] [place], [place] [address] [facility] [place] [address] Laboratories-[facility] [address] documented in this encounter Visit Diagnoses Diagnosis Nodule Thyroid documented in this encounter
--- OUTSIDE RECORDS SUMMARY | 2022-02-11 10:35 | XMS_ITS | Encounter Summary ---
:[address] [facility] Address [address] [place] [address] Care Team Providers Name Role Phone Unavailable [...] More than 4 times per year 09/21/2021 uatsdin services? Do you belong to any clubs [...]
--- OUTSIDE RECORDS SUMMARY | 2022-02-11 10:35 | XMS_ITS | Encounter Summary ---
:1945 Author Organization [facility] Address [address] [place] [address] Care Team Providers Name Role Phone Unavailable [...] or relatives? How often do you attend christian or More than 4 times per year 09/21/2021 anglican services? Do you belong to any clubs or Not asked organizations such as christian groups, unions, fraternal or athletic groups, or [...] or slept in a fpc (including now)? Education Answer Date Recorded What is the highest level of school Master's degree (e.g., M A, MS, 09/21/2021 you have completed or the highest Cecil, MEd, WORKFORCE PLANNER, ARMANDO) degree you have received? Sex Assigned [...]
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
--- OUTSIDE RECORDS SUMMARY | 2022-02-11 10:35 | XMS_ITS | Encounter Summary ---
:1945 Author Organization [place] Address [facility] [place] [address] Care Team Providers Name Role Phone Robert Jones MD Primary Care Provider Unavailable Encounter Details Date Type Department Care Team Description 03/20/2013 Telephone [facility] Cancer Clini c Sarah Howard, RN [facility] lding 1st Floor, [address] [phone] Social History Tobacco Use Types Packs/Day [...] the images that she had done at [facility] andindicated that the splenic artery aneurysm is stable and that we would recommend f/u in [address]. She verbalized understanding and will call with any further questions documented in this encounter Plan of Treatment Not on filedocumented as of this encounter Visit Diagnoses Not on filedocumented in this encounter Care Teams Hand Cooper Helper Relationship Specialty Start Date End Date Robert Jones MD PCP - General Internal Medicine 02/19/13 09/27/20 documented as of this encounter
--- OUTSIDE RECORDS SUMMARY | 2022-02-11 10:35 | XMS_ITS | Encounter Summary ---
:1945 Author Organization [place] Address [facility] [place] [address] Care Team Providers Name Role Phone Robert Jones MD Primary Care Provider Unavailable Encounter Details Date Type Department Care Team Description 03/04/2013 Orders Only [facility] Interventional Sarah Howard, Splenic artery Radiology Consult Cl reinaldo RN aneurysm (H) (Primary [address] [facility] [address] [phone] Dx) KINGSLEY RAINES ([facility]) [address] [address] Social History Tobacco Use Types Packs/Day Years Used Date Never Assessed Sex Assigned at Date Recorded Not on file documented as of this encounter Plan of Treatment Not on filedocumented as of this encounter Visit Diagnoses Diagnosis Splenic artery aneurysm (H) - Primary Aneurysm of splenic artery documented in this encounter Care Teams Natural Resources Engineer Relationship Specialty Start Date End Date Robert Jones MD PCP - General Internal Medicine 02/19/13 09/27/20 documented as of this encounter
--- OUTSIDE RECORDS SUMMARY | 2022-02-11 10:35 | XMS_ITS | Encounter Summary ---
:1945 Author Organization [facility] Address [address] [place] [address] Care Team Providers Name Role Phone Unavailable [...] or relatives? How often do you attend denominational or More than 4 times per year 09/21/2021 sikh services? Do you belong to any clubs or Not asked organizations such as denominational groups, unions, fraternal or athletic groups, or [...] have completed or the highest Cecil, MEd, DRYCLEANER, ARMANDO) degree you have received? Sex Assigned [...]
--- OUTSIDE RECORDS SUMMARY | 2022-02-11 10:35 | XMS_ITS | Encounter Summary ---
:1945 Author Organization [facility] Address [address] [place] [address] Care Team Providers Name Role Phone Unavailable Primary Care Provider Unavailable Reason for Referral Outpatient (Routine) - Closed Specialty Diagnoses / Procedures Referred By Contact Refer red To Contact Endocrinology Diagnoses Nodule Thyroid Zeynep Keller M.D. [facility] [address] [place] [address] Referral ID Status Reason Start Date Expiration Date Visits Requ ested Visits Authorized [id number] Closed 10/25/2021 10/25/2022 1 1 Encounter Details Date Type Department Care Team Description [facility] Zari Adhikari (Primary Dx) [address] [facility] [address] [place] [address] [place], [place] [phone] Social History Tobacco Use Types Packs/Day Years [...] More than 4 times per year 09/21/2021 catholic services? Do you belong to any clubs [...] have completed or the highest Cecil, MEd, FINAL CLEANER, ARMANDO) degree you have received? Sex Assigned at Date Recorded Female 09/21/2021 10:37 AM CDT documented as of this encounter Plan of Treatment Scheduled Referrals Name Type Priority Associated Diagnoses Order S [facility] General Surgery Outpatient Referral Routine Nodule Thyroid Exp ected: Referral 10/25/2021 (Approximate), Expires: 01/25/2023 documented as of this encounter Visit Diagnoses Diagnosis Nodule Thyroid - Primary documented in this encounter
--- OUTSIDE RECORDS SUMMARY | 2022-02-11 10:35 | XMS_ITS | Encounter Summary ---
:1945 Author Organization [facility] Address [address] [place] [address] Care Team Providers Name Role Phone Unavailable [...]
--- OUTSIDE RECORDS SUMMARY | 2022-02-11 10:35 | XMS_ITS | Continuity of Care Document ---
:1945 Author Organization [facility] Address [address] [address] [place] [address] Phone Care Team Providers Name Role Phone Cindy Tena CRNA Unavailable Unavailable Allergies, Adverse Reactions, Alerts Substance Reaction Status Criticality doxycycline Active No Information nickel rash Active No Information morphine Dizziness Active No Information WARNIN allergy(ies) could not be collected because the type is not supported. Please contact [facility] practice for further details. Medications Medication Instructions Dosage Effective Status Comments Dates (start - stop) amlodipine besylate (bulk) - Active 100 % powder Cosamin DS 500 mg-400 mg spray 1 by Oral 1 - Act carlyle tablet route every day Eye Drops Advanced Relief - Active 0.05 %-0.1 %-1 %-1 % ibuprofen 200 mg capsule take 2 Capsule 400 MG - Acti ve by oral route every day as needed Tylenol Cold and Flu as needed - Active Severe 5 mg-10 mg-325 mg-200 mg/15 mL oral liquid irecdvgclldl-Nb-vkox-elevator examiner and adjuster every day - Active als 27 mg-0.4 mg Tab Baby Aspirin 81 mg Take one tablet - Active Chewable Tab by mouth daily Co Q-10 100 mg capsule take 1 by Oral 1 - Active route every day [place]-3 + Vitamin D3 2,200 - Active mg-1,000 unit/5 mL Oral Liquid Benefiber (guar gum) take 2 Teaspoon 2 Teaspoon - Active Packet by Oral route every day Premarin 0.625 mg/gram insert (1G) by 1 G - Active Vaginal Cream vaginal route 2 times every week cyclically, 3 weeks on and 1 week off Nystop 100,000 unit/gram apply by topical 0.00 - Activ e Topical Powder route 2 times every day to the affected area(s) albuterol sulfate HFA 90 inhale 2 puff by - Activ e mcg/actuation Aerosol inhalation route Inhaler every 4 - 6 hours as needed Calcium 600 + D(3) 600 mg Take one tablet - Activ e (1,500 mg)-400 unit Tab by mouth daily Lipitor 10 mg Tab Take 1/2 tab by - Active mouth once daily lisinopril-hydrochlorothia Take one tablet - Acti ve zide 10 mg-12.5 mg Tab by mouth daily MiralaxBisacodylMagCit Use as directed - No Lo nger Colon Prep Active Procedures Procedure Date Adenoma(s), Other Neoplasm Detected During Screen Colonoscopy Flex; W/remov Les- Level Iv-surg Path Gross/micro Colonoscopy Flex; W/remov Les- Level Iv-surg Path Gross/micro Colonoscopy Flex; Dx (feb Pro) Colonoscopy Flex; W/remov Advance Directives Directive Yes / No Effective Date File Name No Information Encounters Encounter Practice Location Reason(s) Diagnoses Date Provider Provide rs Description [facility] JOY [facility], Endoscopy [address] [address], [address] [place] [address] [place], [place], [place], [address], [id number], [place], [place], tel:[phone], [id number] [place]. tel:[phone] [facility] Diverticulosis Mendez LACY Refe rring [facility] of colon without Beverley. Provi hayley: [facility] [place], Endoscopy diverticulitisEn [address] [place] [address], [address], [address], [address] [place] malignant [address], [place], [place], neoplasm of [facility] [address] [id number], colonPersonal [place], [place], Family [place] history of [id number], Practice tel: colonic US. Int Med, [id number] polypsBenign tel: Northe ld neoplasm of [id number] , [place], ascending [address]. colonDvrtclos of tel: lg int w/o [id number] perforation or abscess w/o bleeding [facility] No Information Link [facility] [place], Endoscopy [address] [place] [address], [address], [place] [address], [place], [place], [place] [id number], [place], [place], [place] [id number], tel: [place]. [phone] tel:[phone] [facility] Colon Cancer Alex LACY Referri ng [facility] ScreeningBenign Eryn. Provid er: [facility] [place], Endoscopy Neoplasm [address] Bricelyn ColonColon [facility] [address], [address], , [address] [place] ScreeningDiverti [address], [place], [place], culosis Of [facility] [address], [id number], ColonPersonal [place], [place], [place] History Colon [id number], , [place], [place]: [place]. [phone]. [phone] Neoplasm Colon tel: tel:[phone] [facility] Colon Cancer Alex LACY Referring [facility] ScreeningHemorrh [address]. Provi hayley: [facility] [place], Endoscopy oids NosPersonal 9 [address] Center History Colon Hosea LACY, [address], [address], [address] [address] [place] osis Of Colon [address], [address] [place], [place], [place] [address], [id number], [place], [place], [place] [id number], [place], [place], [place]: [place]. [phone] tel: . [phone] tel:[phone] [facility] Colon Cancer Alex LACY Referring Digestive [facility] screening 9-200 E[address]. Provider: [facility], Endoscopy 5 3[address] [facility] [place] [address], [address], [address] [place] [address], Alyssa [place], [place], [place], [place], [id number], [place], [place], [address]. [place] [id number], tel:81 tel: [place]. [phone] tel:[phone] Family History Family Member Type Diagnosis Age At Onset Mother Problem (finding) Father Problem (finding) Payers Payer name Insurance type Covered democrat ID Authorization(s ) No Information Social History Type Description Quantity Date Captured Comments Sex Female Smoking Status No Information Chief Complaint And Reason For Visit No Information Reason For Referral Reason For Referral No Information Plan Of Treatment Date Type Action Status No Information History Of Present Illness Encounter Date Complaint History Of Present I llness No Information Functional Status Date Functional Assessment No Information Instructions Date Instruction Additional Informati on Colon Polyps Related to Diverticu losis of colon without diverticulitis Hemorrhoids Related to Diverticu losis of colon without diverticulitis High Fiber Diet Related to Diverticu losis of colon without diverticulitis Colon Cancer Prevention Related to Diver ticulosis of colon without diverticulitis Diverticulosis/Diverticulitis Related to Diverticulosis of colon without diverticulitis Assessments Type Assessment Date No Information Patient Care Teams Name Effective Dates (start - stop) Status M janina No Information
--- OUTSIDE RECORDS SUMMARY | 2022-02-11 10:35 | XMS_ITS | Encounter Summary ---
:1945 Author Organization [place] Address [address] [place] [address]. [place] [address] Care Team Providers Name Role Phone Robert Jones MD Primary Care Provider Unavailable Reason for Visit Reason Onset Date Comments Previsit 03/01/2013 called patient she c onfirmed her appt Encounter Details Date Type Department Care Team Description 03/01/2013 PRE VISIT Surgery Interventional Marisela Torres Previsit (called Radiology MD patient she confirmed [place] [address] [facility] ) Building [facility] [address], Clinic [address] [place] [id number] [facility] [address] [place], [place] [phone] [address] (Work) [phone] Social History Tobacco Use Types Packs/Day Years [...] on filedocumented in this encounter Care Teams Passenger Agent Relationship Specialty Start Date End Date Robert Jones MD PCP - General Internal Medicine 02/19/13 09/27/20 documented as of this encounter
--- OUTSIDE RECORDS SUMMARY | 2022-02-11 10:35 | XMS_ITS | Encounter Summary ---
:1945 Author Organization [facility] Address [address] [place] [address] Care Team Providers Name Role Phone Unavailable Primary Care Provider Unavailable Reason for Referral Outpatient (Routine) - Authorized Specialty Diagnoses / Procedures Referred By Contact Refer red To Contact Diagnoses Nodule Thyroid Angelita Gallego M.D. [facility] Procedures US Thyroid US Head Neck Soft Tissue [address] [place], [place] [address] Referral ID Status Reason Start Date Expiration Date Visits V isits Requested Authorized [id number] Authorized 11/10/2021 11/10/2022 1 1 utpatient (Routine) - Closed Specialty Diagnoses / Procedures Referred By Contact Refer red To Contact Diagnoses Nodule Thyroid Angelita Gallego M.D. [facility] Procedures END Thyroid USG [address] [place], [place] [address] Referral ID Status Reason Start Date Expiration Date Visits Requ ested Visits Authorized [id number] Closed 11/10/2021 11/10/2022 1 1 Reason for Visit Outpatient (Routine) - Closed Specialty Diagnoses / Procedures Referred By Contact Refer red To Contact Endocrinology Diagnoses Nodule Thyroid Zeynep Keller M.D. [address] [address] Referral ID Status Reason Start Date Expiration Date Visits Requ ested Visits Authorized [id number] Closed 10/25/2021 10/25/2022 1 1 Encounter Details Date Type Department Care Team Description 11/10/2021 Comprehensive Visit Division of Angelita Gallego Nodule Thyroid Endocrinology in [place], [place] [address] [place] [address] [phone] Social History Tobacco Use Types Packs/Day Years [...] or relatives? How often do you attend religious or More than 4 times per year 09/21/2021 worship services? Do you belong to any clubs or Not asked organizations such as religious groups, unions, fraternal or athletic groups, or [...] place to sleep or slept in a mcc (including now)? Education Answer Date Recorded What is the highest level of school Master's degree (e.g., M A, MS, 09/21/2021 you have completed or the highest Cecil, MEd, THREAD MILLING MACHINE SET UP OPERATOR, ARMANDO) degree you have received? Sex [...] ILLNESS She is a 76 yof from [place], [place]. She is here with her Padmini [...] Organization Address City/State/ZIP Code Phon e Number [facility] - [address] [place], [place] [address] [facility] [place] [address] [facility] [address] documented in this encounter Visit Diagnoses Diagnosis Nodule Thyroid documented in this encounter
--- OUTSIDE RECORDS SUMMARY | 2022-02-11 10:35 | XMS_ITS | Encounter Summary ---
:1945 Author Organization [facility] Address [address] [place] [address] Care Team Providers Name Role Phone Unavailable Primary Care Provider Unavailable Reason for Visit Appointment Request (Routine) - Closed Specialty Diagnoses / Procedures Referred By Contact Refer red To Contact Dermatology Referral ID Status Reason Start Date Expiration Date Visits Requ ested Visits Authorized [id number] Closed 09/13/2021 09/13/2022 1 1 Encounter Details Date Type Department Care Team Description 09/23/2021 Office Visit Department of Ryann Russell A ctinic (Primary Dx); Dermatology in R, PSiobhanA.-C., M.S. Dermatoheliosis; [place], [place] [address] [facility] Keratosis Seborrheic; [address] [place], [place] Angioma Muñiz; [place] [address] Nevi Multiple; [address] Screening Examination Skin C ancer; Lentigo; [phone] Tumor Skin Unce rtain Behavior (Fax) Social [...] or relatives? How often do you attend amish or More than 4 times per year 09/21/2021 zoroastrian services? Do you belong to any clubs or Not asked organizations such as amish groups, unions, fraternal or athletic groups, or [...] slept in a long term (including now)? Education Answer Date Recorded What is the highest level of school Master's degree (e.g., M A, MS, 09/21/2021 you have completed or the highest Cecil, MEd, ROOF CEMENT AND PAINT MAKER HELPER, ARMANDO) degree you have received? Sex Assigned at Date Recorded Female 09/21/2021 10:37 AM CDT documented as of this encounter Consult Notes Ryann Russell P.A.-C., M.S. - 09/23/2021 11:20 AM CDT REFERRED BY No ref. provider found Supervised by: Dr. Stephani Arias ([phone]) Supervising wardrobe image consultant, Dr. Stephani Arias, was immediately available [...] the patient by letter. Patient given pamphlet [id number]. #7 Muñiz Angiomas #8 Seborrheic Keratoses #9 [...] Procedure Name Priority Date/Time Associated Diagnosis Comme [facility] DERMATOPATHOLOGY Routine 09/23/2021 10:45 AM Resu lts for this CDT procedure are i n the results section. documented in this encounter Results Dermatopathology (09/23/2021 10:45 AM CDT) Component Value Ref Test Analysis Performed Pathologis t Range Method Time At Signature 09/29/2021 [facility] 9:46 AM CDT Report Veronica Carroll 09/29/2021 [facility] electronically Zari Dubose 9:46 AM CDT signed by Juany Description A: ?? Received in formalin labeled with patient's name, 09/29/2021 [facility] medical record number and right jawline is a 0.4 cm in 9:46 AM CDT diameter pale medrano skin punch biopsy excised to a depth of 0.1 cm. ??There is a 0.3 x 0.2 cm medrano lesion with ill-defined borders eccentrically located on the skin surface. ??The specimen is bisected and submitted entirely in cassette A1. ??Grossed by IA. B: ?? Received in formalin labeled with [...] submitted entirely in cassette B1. ??Grossed by IA. Interpretation FINAL DIAGNOSIS 09/29/2021 [facility] A. 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
--- OUTSIDE RECORDS SUMMARY | 2022-02-11 10:35 | XMS_ITS | Encounter Summary ---
:1945 Author Organization [place] Address [facility] [place] [address] Care Team Providers Name Role Phone Robert Jones MD Primary Care Provider Unavailable Encounter Details Date Type Department Care Team Description 03/04/2013 Telephone [email or web address] Interventional Radiology Sarah Hunter, RN Consult Clinic [address] [phone] Social History Tobacco Use Types Packs/Day [...] she then had some imaged done at [facility],which are [place] abd. She's due for another CT at [facility] in Apr. She has lots of questions [...] filedocumented in this encounter Care Teams Hand Crown Pouncer Relationship Specialty Start Date End Date Robert Jones MD PCP - General Internal Medicine 02/19/13 09/27/20 documented as of this encounter
--- OUTSIDE RECORDS SUMMARY | 2022-02-11 10:35 | XMS_ITS | Encounter Summary ---
:1945 Author Organization [place] Address [address] [place] [address]. [place] [address] Care Team Providers Name Role Phone Zeynep Keller MD Primary Care Provider [phone] Encounter Details Date Type Department Care [...] on filedocumented in this encounter Care Teams Fibrous Plasterer Relationship Specialty Start Date End Date Zeynep Keller MD PCP - General Family Medicine 09/28/[address] [address] documented as of this encounter
--- OUTSIDE RECORDS SUMMARY | 2022-02-11 10:36 | XMS_ITS | Encounter Summary ---
:1945 Author Organization [facility] Address [address] [place] [address] Care Team Providers Name Role Phone Unavailable Primary Care Provider Unavailable Reason for Referral Outpatient (Routine) - Closed Specialty Diagnoses / Procedures Referred By Contact Refer red To Contact Vascular Medicine Diagnoses Aneurysm Splenic Artery (HCC) Dm Moyer [place] M.D. [address] [place] [phone] Referral ID Status Reason Start Date Expiration Date Visits Requ ested Visits Authorized [id number] Closed 12/15/2020 12/15/2021 1 1 Reason for Visit Reason Comments Appointment Encounter Details Date Type Department Care Team Description 12/08/2020 Clinical Communication Division of Vascular Ward Flanagan Appointment and Endovascular S, MSiobhanDSiobhan Surgery in [place] [address] [address] [place] [address] [place], [place] [phone] (Work) [phone] Social History Tobacco Use Types Packs/Day Years [...] Organization Address City/State/ZIP Code Phon e Number [facility] - [address] [place] [address] [facility] [place] [address] Laboratories-[facility] [address] [facility] (ABNORMAL) Basic Metabolic Panel (02/02/2021 7:49 [...] 02/02/2021 DTL Black/ mL/min/BSA 9:18 AM CDT Spanish Comment: ----ADDITIONAL INFORMATION---- Estimated GFR calculated using [...] Organization Address City/State/ZIP Code Phon e Number [facility] - [address] [place] [address] [facility] [place] [address] [facility] 200 [facility] CBC with Differential, Blood (02/02/2021 7:49 [...] Organization Address City/State/ZIP Code Phon e Number [facility] - [address] [place], [place] [address] [facility] [place] [address] [facility] [address] documented in this encounter Visit Diagnoses Diagnosis Aneurysm Splenic Artery (HCC) - Primary documented in this encounter
--- OUTSIDE RECORDS SUMMARY | 2022-02-11 10:36 | XMS_ITS | Encounter Summary ---
:1945 Author Organization [facility] Address [address] [place] [address] Care Team Providers Name Role Phone Unavailable Primary Care Provider Unavailable Encounter Details Date Type Department Care Team Description 12/21/2020 Orders Only Department of Zeke Nobles, Encounter For Preprocedural Laboratory Examination (COVID-19) (Primary Dx); Dermatology in [place]. Negative COVID-19 Test (Contact With And (Suspected) Exposure To COVID-19) [place], [place] [address] [facility] [address] [place] [phone] [phone] Social History Tobacco Use Types Packs/Day Years [...] or relatives? How often do you attend congregational or More than 4 times per year 09/21/2021 advent services? Do you belong to any clubs or Not asked organizations such as congregational groups, unions, fraternal or athletic groups, or [...] RNA, V Asymptomatic (01/28/2021 9:56 AM CDT) [facility] Method Time Signature SARS-CoV-2 Swab, 01/28/2021 MKTO [...] pe rformed using the Aptima SARS-CoV-2 assay ([employer] on the [employer] tem under emergency use authorization (EUA) by the U.S. Food and Drug Administ ration. Fact sheets for this EUA assay can be fo und at the following links: For Healthcare Providers: https://www.fd a.gov/media/911877/download For Patients: https://www.fda.gov/media/ 252626/download Specimen Anatomical Collection Method Collection Time Receive d Time (Source) Location / / Volume Laterality Varies 01/28/2021 9:56 AM 3:24 (Nasopharynx) CDT PM CDT Zeke Nobles M.D., M.S. LAB MICROBIOLOGY - GENERAL O RDERABLES Performing Organization Address City/State/ZIP Code Phon e Number [facility]- [address] [place] [address] [place] [address] System in [address] documented in this encounter Visit Diagnoses Diagnosis Encounter For Preprocedural Laboratory E xamination (COVID-19) - Primary Negative COVID-19 Test (Contact With And (Suspected) Exposure To COVID-19) documented in this encounter
--- OUTSIDE RECORDS SUMMARY | 2022-02-11 10:36 | XMS_ITS | Encounter Summary ---
:1945 Author Organization [facility] Address [address] [place] [address] Care Team Providers Name Role Phone Unavailable [...]
--- OUTSIDE RECORDS SUMMARY | 2022-02-11 10:36 | XMS_ITS | Encounter Summary ---
:1945 Author Organization [facility] Address [address] [place] [address] Care Team Providers Name Role Phone Unavailable Primary Care Provider Unavailable Encounter Details Date Type Department Care Team Description 02/02/2021 Hospital Encounter Department of Dm Moyer Splenic Laboratory Medicine [place] Guzman Artery (HCC) and Pathology, [address] [place] [address], in [place] [phone] [phone] [place] [address] (Work) [place], [place] [phone] (Fax) [phone] Social History Tobacco Use Types Packs/Day Years [...] Apply topically. 0 10/05 unit/gram powder omega 7-cie-fnn-fish oil Take 1 capsule by 0 04/05 900 mg-360 mg- 455 mouth daily. mg-1,000 mg capsule vit Take 1 capsule by 0 07/10/2017 C,O-Cd-mbnms-lutein-zeaxan mouth 2 (two) times a (AREDS 2) [...] M.D. LAB BLOOD ADD-ON Performing Organization Address City/State/[facility] Code Phon e Number [facility] - [address] [place], [place] [address] [facility] [place] [address] Laboratories-[facility] 200 [facility] (ABNORMAL) Basic Metabolic Panel (02/02/2021 7:49 AM [...] 02/02/2021 DTL Black/ mL/min/BSA 9:18 AM CDT Filipino Comment: ----ADDITIONAL INFORMATION---- Estimated GFR calculated using [...] City/State/ZIP Code Phon e Number [facility] - [address] [place] [address] [facility] [place] [address] [facility] 200 [facility] CBC with Differential, Blood (02/02/2021 7:49 AM [...] City/State/ZIP Code Phon e Number [facility] - [address] [place], [place] [address] [facility] [place] [address] Laboratories-[facility] [address] documented in this encounter Visit Diagnoses Diagnosis Aneurysm Splenic Artery (HCC) documented in this encounter
--- OUTSIDE RECORDS SUMMARY | 2022-02-11 10:36 | XMS_ITS | Encounter Summary ---
:1945 Author Organization [facility] Address [address] [place] [address] Care Team Providers Name Role Phone Unavailable [...] More than 4 times per year 09/21/2021 sikhism services? Do you belong to any clubs [...] mild, L>R CDM Reports - EYEGEN Id: [id number] Status: Fnl documented in this encounter Plan of Treatment Not on filedocumented as of this encounter Visit Diagnoses Not on filedocumented in this encounter Additional Health Concerns Infection Onset Date Last Indicated Resolved Time COVID19 Pending 01/28/2021 01/28/2021 01/28/2021 11:52 PM CDT documented as of this encounter
--- OUTSIDE RECORDS SUMMARY | 2022-02-11 10:36 | XMS_ITS | Encounter Summary ---
:1945 Author Organization [facility] Address [address] [place] [address] Care Team Providers Name Role Phone Unavailable Primary Care Provider Unavailable Reason for Referral Outpatient (Routine) - Closed Specialty Diagnoses / Procedures Referred By Contact Refer red To Contact Dermatology Diagnoses Basal Cell Carcinoma Skin Other Parts Face Zeke Nobles M.D., [facility] Procedures [facility] 1-4 sites M.S. [address] [place] [phone] Referral ID Status Reason Start Date Expiration Date Visits Requ ested Visits Authorized [id number] Closed 12/17/2020 12/17/2021 1 1 Encounter Details Date Type Department Care Team Description 12/17/2020 Orders Only Department of Zeke Nobles, Basal Cell Carcinoma Skin Other Parts Face (Primary Dx); Dermatology in [place], [place] Preprocedural Lab Exam; [place], [place] [address] [facility] Contact With And (Suspected) Exposure To COVID-[address] [place] [phone] Social History Tobacco Use Types Packs/Day Years [...] More than 4 times per year 09/21/2021 caodaism services? Do you belong to any clubs or Not asked organizations such as religion groups, unions, [employer] or athletic groups, or school groups? How [...] filedocumented as of this encounter Results [facility] 1-4 sites (02/02/2021 10:30 AM CDT) Narrative Jose A Lucero M.D. - 02/02/2021 10:30 AM CDT China Oconnor M.D. ? 02/02/2021 ??3:34 PM PREOP INDICATION: REMOVAL. Date of Surgery: 02/02/2021 Surgeon: Dr. Jose A Lucero Commercial Loan Assistant: Dr. Harpreet Adam and Dr. China Oconnor Location: [place] ?? dg:GO ?? Floor: 16 ?? Room:DERMMA Visit Type: Outpatient PostOp Diagnosis: ??Nodular basal cell c arcinoma Anatomic Location: ??Right preauricular cheek Preoperative size: ??0.3 x 0.4 cm [facility] number: 12 Indication(s) for Mohs Micrographic Surg [...] Component Value Ref Test Analysis Performed At [facility] Time Signature 12/31/2020 [facility] 1:37 PM CDT Participated in Martin Chan 12/31/2020 [facility] the , 1:37 PM CDT Interpretation D.OSiobhan-Pathology Fellow Report Pennie Conley M.D. 12/31/2020 [facility] electronically 1:37 PM CDT signed by I verify that I have examined all relevant slides/materials for the specimen(s) and rendered or confirmed the diagnosis. Material Received A. [id number]: Skin, Right preauricular cheek 12/31/2020 [facility]DRM ? 2 stained slides, 5 unstained slides 1:37 PM CDT Also rec'd 1 slide ([id number]) not for interpretation. Interpretation FINAL DIAGNOSIS 12/31/2020 PDRM A. ??Skin, Right preauricular cheek, [id number], 1:37 PM CDT 11/04/2020: Nodular basal cell carcinoma, involving biopsy border Specimen Anatomical Collection Method Collection Time Receive d Time (Source) Location / / Volume Laterality Varies 12/30/2020 3:48 PM 3:48 CDT PM CDT Narrative This result has an attachment that is no t available. Zeke Nobles M.D., M.S. LAB SURG PATH ORDERABLES Performing Organization Address City/State/ZIP Code Phon e Number [facility] - [address] [place], [place] [address] [facility] [place] [address] [facility] [address] documented in this encounter Visit Diagnoses Diagnosis Basal Cell Carcinoma Skin Other Parts Fa ce - Primary Preprocedural Lab Exam Contact With And (Suspected) Exposure To COVID-19 Basal Cell Carcinoma Skin Other Parts Fa ce documented in this encounter
--- OUTSIDE RECORDS SUMMARY | 2022-02-11 10:36 | XMS_ITS | Encounter Summary ---
:1945 Author Organization [facility] Address [address] [place] [address] Care Team Providers Name Role Phone Unavailable Primary Care Provider Unavailable Encounter Details Date Type Department Care Team Description 12/21/2020 Clinical Communication Department of Zeke Nobles, Dermatology in [place], M[place]S. [place], [place] [address] [facility] [address] [place] [phone] [phone] Social History Tobacco Use Types Packs/Day Years [...] or relatives? How often do you attend hindu or More than 4 times per year 09/21/2021 yazidism services? Do you belong to any clubs or Not asked organizations such as hindu groups, unions, fraternal or athletic groups, or [...]
--- OUTSIDE RECORDS SUMMARY | 2022-02-11 10:36 | XMS_ITS | Encounter Summary ---
:1945 Author Organization [facility] Address [address] [place] [address] Care Team Providers Name Role Phone Unavailable Primary Care Provider Unavailable Encounter Details Date Type Department Care Team Description 01/28/2021 Hospital Encounter Department of Zeke Nobles er For Preprocedural Laboratory Examination (COVID-19); Laboratory Medicine [place] Campuzano, M.S . Negative COVID-19 Test (Contact With And (Suspected) Exposure To COVID-19) in [place], [facility] [address] [place], [place] [address] [place] [address] [place], [place] [phone] (Work) [phone] Social History Tobacco Use Types Packs/Day Years [...] or relatives? How often do you attend confucianism or More than 4 times per year 09/21/2021 voodoo services? Do you belong to any clubs or Not asked organizations such as confucianism groups, unions, fraternal or athletic groups, or [...] Apply topically. 0 10/05 unit/gram powder omega 8-ivf-rkq-fish oil Take 1 capsule by 0 04/05 900 mg-360 mg- 455 mouth daily. mg-1,000 mg capsule vit Take 1 capsule by 0 07/10/2017 C,I-Ks-pdfvn-lutein-zeaxan mouth 2 (two) times a (AREDS 2) [...] RNA, V Asymptomatic (01/28/2021 9:56 AM CDT) [facility] Method Time Signature SARS-CoV-2 Swab, [...] pe rformed using the Aptima SARS-CoV-2 assay ([employer] on the [employer] tem under emergency use authorization (EUA) by the U.S. Food and Drug Administ ration. Fact sheets for this EUA assay can be fo und at the following links: For Healthcare Providers: https://www.fd a.gov/media/300792/download For Patients: https://www.fda.gov/media/ 997321/download Specimen Anatomical Collection Method Collection Time Receive d Time (Source) Location / / Volume Laterality Varies 01/28/2021 9:56 AM 3:24 (Nasopharynx) CDT PM CDT Zeke Nobles M.D., M.S. LAB MICROBIOLOGY - GENERAL O RDERABLES Performing Organization Address City/State/ZIP Code Phon e Number [facility]- [address] [place] [address] [place] [address] System in [address] documented in this encounter Visit Diagnoses Diagnosis Encounter For Preprocedural Laboratory E xamination (COVID-19) Negative COVID-19 Test (Contact With And (Suspected) Exposure To COVID-19) documented in this encounter Additional Health Concerns Infection Onset Date Last Indicated Resolved Time COVID19 Pending 01/28/2021 01/28/2021 01/28/2021 11:52 PM CDT documented as of this encounter
--- OUTSIDE RECORDS SUMMARY | 2022-02-11 10:36 | XMS_ITS | Encounter Summary ---
:1945 Author Organization [facility] Address [address] [place] [address] Care Team Providers Name Role Phone Unavailable Primary Care Provider Unavailable Encounter Details Date Type Department Care Team Description 02/01/2021 Orders Only Department of Vascular LangAleman P.A.-C. Medicine in [place], [facility] [address] [place], [place] [address] [facility] [address] [place] [address] [phone] Social History Tobacco Use Types Packs/Day Years [...] or relatives? How often do you attend judaism or More than 4 times per year 09/21/2021 temple services? Do you belong to any clubs or Not asked organizations such as judaism groups, unions, fraternal or athletic groups, or [...]
--- OUTSIDE RECORDS SUMMARY | 2022-02-11 10:36 | XMS_ITS | Encounter Summary ---
:1945 Author Organization [facility] Address [address] [place] [address] Care Team Providers Name Role Phone Unavailable Primary Care Provider Unavailable Reason for Visit Reason Comments Basal Cell Carcinoma Outpatient (Routine) - Closed Specialty Diagnoses / Procedures Referred By Contact Refer red To Contact Dermatology Diagnoses Basal Cell Carcinoma Skin Other Parts Face Zeke Nobles M.D., [facility] Procedures AR[facility]I [facility] 1-4 sites M.S. [address] [place] [address] Referral ID Status Reason Start Date Expiration Date Visits Requ ested Visits Authorized [id number] Closed 12/17/2020 12/17/2021 1 1 Encounter Details Date Type Department Care Team Description 02/02/2021 Procedure visit Department of Jose A Lucero, Basal Ce ll Carcinoma Dermatology in M.D. Skin Other Parts Face [place], [place] [address] [facility] [address] [place] [address] [phone] Social History Tobacco Use Types Packs/Day Years [...] or relatives? How often do you attend anabaptism or More than 4 times per year 09/21/2021 denominational services? Do you belong to any clubs or Not asked organizations such as anabaptism groups, unions, fraternal or athletic groups, or [...] Surgery: 02/02/2021 Surgeon: Dr. Jose A Lucero Event Coordinator: Dr. Harpreet Adam and Dr. China Oconnor Location: [facility]: Floor:16 Room:[facility] Visit Type: Outpatient PostOp Diagnosis: Nodular basal cell carcinoma Anatomic Location: Right preauricular cheek Preoperative size: 0.3 x 0.4 cm [facility] number: 12 Indication(s) for Mohs [...] was reviewed by Dr. Yael silva at [place]. She reports that she has a history of basal cell carcinoma on the left cheek 2 years ago that has already been treated. She does not have any history of melanoma. 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 The dermatologic surgery preoperative information sheet was [...] China Oconnor MD Dermatology Resident, PGY-3 Pager: [phone] Associated attestation - Jose A Lcuero M.D. - 02/02/2021 4:44 PM CDT I [...] section. documented in this encounter Results [facility] 1-4 sites (02/02/2021 10:30 AM CDT) Narrative Jose A Lucero M.D. - 02/02/2021 10:30 AM CDT China Oconnor M.D. ? 02/02/2021 ??3:34 PM PREOP INDICATION: REMOVAL. Date of Surgery: 02/02/2021 Surgeon: Dr. Jose A Lucero Event Coordinator: Dr. Harpreet Adam and Dr. China Oconnor Location: [place] ?? dg:GO ?? Floor: 16 ?? Room:[facility] Visit Type: Outpatient PostOp Diagnosis: ??Nodular basal [...] MAR Action Action Date Dose Rate Site mbvmfoubpqb-mpeyuuiku-UDYPNTRmnmt Given 02/02/2021 2:05 PM CDT 2 mL [...]
--- OUTSIDE RECORDS SUMMARY | 2022-02-11 10:36 | XMS_ITS | Encounter Summary ---
:1945 Author Organization [facility] Address [address] [place] [address] Care Team Providers Name Role Phone Unavailable [...] or relatives? How often do you attend zoroastrian or More than 4 times per year 09/21/2021 hoahaoism services? Do you belong to any clubs or Not asked organizations such as zoroastrian groups, unions, fraternal or athletic groups, or [...]
--- OUTSIDE RECORDS SUMMARY | 2022-02-11 10:36 | XMS_ITS | Encounter Summary ---
:1945 Author Organization [facility] Address [address] [place] [address] Care Team Providers Name Role Phone Unavailable Primary Care Provider Unavailable Reason for Visit Outpatient (Routine) - Closed Specialty Diagnoses / Procedures Referred By Contact Refer red To Contact Diagnoses Aneurysm Splenic Artery (HCC) Dm Moyer M.D. [facility] Procedures US Abdomen Pelvis Vessels Limited Doppler US Mesenteric Artery [address] [place] [phone] Referral ID Status Reason Start Date Expiration Date Visits Requ ested Visits Authorized [id number] Closed 12/15/2020 12/15/2021 1 1 Encounter Details Date Type Department Care Team Description 02/02/2021 Hospital Encounter Department of Dm Moyer [facility] Splenic Radiology, Fady Guzman M.D. Artery (HCC) [facility], in [address] [place] [phone] [place] [address] [place], [place] (Work) [phone] [phone] Social History Tobacco Use Types Packs/Day Years [...] or relatives? How often do you attend baptism or More than 4 times per year 09/21/2021 baptism services? Do you belong to any clubs or Not asked organizations such as baptism groups, unions, fraternal or athletic groups, or [...] Apply topically. 0 10/05 unit/gram powder omega 0-ztv-unz-fish oil Take 1 capsule by 0 04/05 900 mg-360 mg- 455 mouth daily. mg-1,000 mg capsule UNABLE TO FIND Med Name: [facility] 0 drops vit Take 1 capsule by 0 07/10/2017 C,O-Hb-mwvpg-lutein-zeaxan mouth 2 (two) times a (AREDS 2) [...]
--- OUTSIDE RECORDS SUMMARY | 2022-02-11 10:36 | XMS_ITS | Encounter Summary ---
:1945 Author Organization [facility] Address [address] [place] [address] Care Team Providers Name Role Phone Unavailable Primary Care Provider Unavailable Encounter Details Date Type Department Care Team Description 02/19/2018 Hospital Encounter Department of Shahid Flanagan Splenic Radiology, Fady Watson M.D. Artery ([facility]) Building, in [address] [facility] [address] [place], [place] [phone] [phone] (Work) [phone] Social History Tobacco Use Types Packs/Day Years [...] or slept in a [facility] (including now)? Sex Assigned at Date Recorded [...] Apply topically. 0 10/05 unit/gram powder omega 2-sdd-jcj-fish oil Take 1 capsule by 0 04/05 900 mg-360 mg- 455 mouth daily. mg-1,000 mg capsule vit Take 1 capsule by 0 07/10/2017 C,I-Uq-ibuia-lutein-zeaxan mouth 2 (two) times a (AREDS 2) [...] analysis. COMPARISON: Ultrasound of the splenic ar [facility] 12/17/2015. ?? FINDINGS: The spleen measures 12.6 cm. A periphera lly calcified splenic artery aneurysm is not significantly changed measuring 1.3 x 1.3 cm; previously 1.3 x 1.2 cm. The aneurysm remains patent. Procedure Note Дмитрий Polanco M.D. - 02/19/2018 EXAM: US ABDOMEN PELVIS VESSELS DOPPLER Exam performed with color and spectral D oppler analysis. COMPARISON: Ultrasound of the splenic ar [facility] 12/17/2015. FINDINGS: The spleen measures 12.6 cm. [...]
--- OUTSIDE RECORDS SUMMARY | 2022-02-11 10:36 | XMS_ITS | Encounter Summary ---
:1945 Author Organization [facility] Address [address] [place] [address] Care Team Providers Name Role Phone Unavailable Primary Care Provider Unavailable Reason for Referral Outpatient (Routine) - Closed Specialty Diagnoses / Procedures Referred By Contact Refer red To Contact Vascular Medicine Yas Perez P.A. -C. [facility] [place] [address] [place] [phone] Referral ID Status Reason Start Date Expiration Date Visits Requ ested Visits Authorized [id number] Closed 02/02/2021 02/02/2022 1 1 Outpatient (Routine) - Closed Specialty Diagnoses / Procedures Referred By Contact Refer red To Contact Diagnoses Aneurysm Splenic Artery (HCC) Yas Perez P.A.-C. [facility] [place] Procedures US Abdomen Pelvis Vessels Limited Doppler [address] [place] [phone] Referral ID Status Reason Start Date Expiration Date Visits Requ ested Visits Authorized [id number] Closed 02/02/2021 02/02/2022 1 1 Reason for Visit Outpatient (Routine) - Closed Specialty Diagnoses / Procedures Referred By Contact Refer red To Contact Vascular Medicine Diagnoses Aneurysm Splenic Artery (HCC) Dm Moyer, [facility] Zari [address] [place] [phone] Referral ID Status Reason Start Date Expiration Date Visits Requ ested Visits Authorized [id number] Closed 12/15/2020 12/15/2021 1 1 Encounter Details Date Type Department Care Team Description 02/02/2021 Comprehensive Visit Department of Yas Perez Splenic Artery (HCC) (Primary Dx); Vascular Medicine R, P.A.-C. Hypertension Essential Primary; in [place] [address] [facility] Hyperlipidemia On Treatment [place], [place] 200 [facility] [address] [place], [place] [phone] (Work) [phone] Social History Tobacco Use Types Packs/Day Years [...] More than 4 times per year 09/21/2021 sabianist services? Do you belong to any clubs [...] REFERRAL SOURCE Dm Moyer M.D. [address] [place] [address] SUBJECTIVE CHIEF COMPLAINT / REASON FOR VISIT Surveillance of splenic artery aneurysm HISTORY OF PRESENT ILLNESS Ms. Layton is a 75 y.o. female that I am seeing today for surveillance of splenic artery aneurysm. She came to the [facility] vascular Center initially in 2009 after [...] come with a bandage on the right sabianism from a basal cell carcinoma that was [...] exception of a bandage over the right sabianism. Eyes: No injection and no drainage seen. [...] Name Type Priority Associated Diagnoses Order [facility] Lipid Panel Lab Routine Hyperlipidemia On [...] Name Type Priority Associated Diagnoses Order [facility] Vascular Medicine Outpatient Referral Routine Exp ected: office visit 02/02/2023 (clinic) (Approximate), Expires: 02/03/2024 documented as of this encounter Visit Diagnoses Diagnosis Aneurysm Splenic Artery (HCC) - Primary Hypertension Essential Primary Hyperlipidemia On Treatment documented in this encounter
--- OUTSIDE RECORDS SUMMARY | 2022-02-11 10:36 | XMS_ITS | Encounter Summary ---
:1945 Author Organization [facility] Address [address] [place] [address] Care Team Providers Name Role Phone Unavailable [...] More than 4 times per year 09/21/2021 pentecostal services? Do you belong to any clubs [...]
--- OUTSIDE RECORDS SUMMARY | 2022-02-11 10:36 | XMS_ITS | Encounter Summary ---
:1945 Author Organization [facility] Address [address] [place] [address] Care Team Providers Name Role Phone Unavailable Primary Care Provider Unavailable Encounter Details Date Type Department Care Team Description 12/17/2020 Lab RST RO Zeke Baum, Basal Cell Carcinoma Skin [address] [facility] MMonty, [place] [address] [place] [phone] (Wo rk) Social History Tobacco Use Types [...] Component Value Ref Test Analysis Performed At [facility] Range Method Time Signature 12/31/2020 PDR 1:37 PM CDT Participated in Martin Chan 12/31/2020 PDR the Jr, 1:37 PM CDT Interpretation D.O.-Pathology Fellow Report Pennie Conley M.D. 12/31/2020 PDR electronically 1:37 PM CDT signed by I verify that I have examined all relevant slides/materials for the specimen(s) and rendered or confirmed the diagnosis. Material Received A. [id number]: Skin, Right preauricular cheek 12/31/2020 PDRM ? 2 stained slides, 5 unstained slides 1:37 PM CDT Also rec'd 1 slide ([id number]) not for interpretation. Interpretation FINAL DIAGNOSIS 12/31/2020 PDR A. ??Skin, Right preauricular cheek, [id number], 1:37 PM CDT 11/04/2020: Nodular basal cell carcinoma, involving biopsy border Specimen Anatomical Collection Method Collection Time Receive d Time (Source) Location / / Volume Laterality Varies 12/30/2020 3:48 PM 3:48 CDT PM CDT Narrative This result has an attachment that is no t available. Zeke Nobles M.D., M.S. LAB SURG PATH ORDERABLES Performing Organization Address City/State/ZIP Code Phon e Number [facility] - [address] [place], [place] [address] [facility] [place] [address] [facility] [address] documented in this encounter Visit Diagnoses Diagnosis Basal Cell Carcinoma Skin Other Parts Fa ce documented in this encounter
--- OUTSIDE RECORDS SUMMARY | 2022-02-11 10:36 | XMS_ITS | Encounter Summary ---
:1945 Author Organization [facility] Address [address] [place] [address] Care Team Providers Name Role Phone Unavailable Primary Care Provider Unavailable Encounter Details Date Type Department Care Team Description 12/21/2020 Clinical Communication Department of Jose A Lucero, Dermatology in .[place], [place] [address] [facility] [address] [place] [phone] Social History Tobacco Use Types Packs/Day Years [...] More than 4 times per year 09/21/2021 jain services? Do you belong to any clubs [...]
--- OUTSIDE RECORDS SUMMARY | 2022-02-11 10:36 | XMS_ITS | Encounter Summary ---
:1945 Author Organization [facility] Address [address] [place] [address] Care Team Providers Name Role Phone Unavailable Primary Care Provider Unavailable Reason for Visit Reason Onset Date Comments Test only 01/15/2018 Encounter Details Date Type Department Care Team Description 01/15/2018 Clinical Communication Division of Vascular Ward Flanagan ustavo Test only and Endovascular S, M.D. Surgery in [address] [place] [address] [place], [place] [phone] (Work) [phone] Social History Tobacco Use Types Packs/Day Years [...] More than 4 times per year 09/21/2021 episcopalian services? Do you belong to any clubs [...]
--- OUTSIDE RECORDS SUMMARY | 2022-02-11 10:36 | XMS_ITS | Encounter Summary ---
:1945 Author Organization [facility] Address [address] [place] [address] Care Team Providers Name Role Phone Unavailable Primary Care Provider Unavailable Encounter Details Date Type Department Care Team Description 01/22/2018 Orders Only Division of Vascular and Lisette Terrazas, Aneurysm Splenic Endovascular Surgery in R.N. Artery (HCC) (Primary [place], [place] [address] [facility]) [address] [place] [phone] Social History Tobacco Use Types Packs/Day Years [...] More than 4 times per year 09/21/2021 mu-ism services? Do you belong to any clubs [...]
== END 2022-02-11 09:17 | disposition home or self-care (01) ==
LOC: MAMMO 09:19
PROVIDERS: PCP Family Medicine; Visit Provider Family Medicine
DX: N63.10 Unspecified lump in the right breast, unspecified quadrant (principal); R92.8 Other abnormal and inconclusive findings on diagnostic imaging of breast
CPT/HCPCS: 77065; G0279